=== PATIENT | female | born 1955 | race American Indian/Alaskan Native ===

== ENCOUNTER 2016-06-03 02:29 | Emergency (ER) | payer MEDICAID ==
[2016-06-03] MEDS ORDERED: methylPREDNISolone Sodium Succinate 125 MG/2 ML SDV IVPUSH ONE (02:32)
--- NOTE | 2016-06-03 02:37 | EDM.PDOC ---
ED HISTORY OF PRESENT ILLNESS - General Stated Complaint: AMB Time Seen by Provider: 06/03/16 02:32 Source of Information: Reports: Patient, EMS History Limitations: Reports: Respiratory distress - History of Present Illness INITIAL COMMENTS - FREE TEXT/NARRATIVE: EMS states Pt had recent leg surgery called for SOB arrived with O2 sat 80s with minimal response to neb, en route after second neb and CPAP sat improved to 90s. Pt states had surgery done few days ago in [place] where they had to clean out the infection from DM, had a pump there also, started SOB ~ 1am. no chest pain but leg pain. - Related Data Allergies/ADRs: Allergies Allergy/AdvReac Type Severity Reaction Status Date / Time capsaicin Allergy UNKNOWN Verified 03/15/13 11:43 codeine Allergy Nausea and Verified 03/15/13 11:43 Vomiting ibuprofen Allergy Itching Verified 03/15/13 11:43 pregabalin Allergy CONTACT Verified 03/15/13 11:43 DERMATITIS ALLERGY Home Meds: Home Meds Albuterol [Proventil HFA] 1 puff INH Q4HR PRN 10/08/13 [History] Aspirin [Ecotrin] 81 mg PO DAILY 10/08/13 [History] FLUoxetine [PROzac] 20 mg PO DAILY 10/08/13 [History] Formoterol/Mometasone [Dulera 100 MCG/5 MCG] 2 puff INH BID 10/08/13 [History] Omeprazole [priLOSEC OTC] 20 mg PO DAILY 10/08/13 [History] Simvastatin [Zocor] 20 mg PO QPM 10/08/13 [History] Tiotropium [Spiriva HandiHaler] 18 mcg INH DAILY 10/08/13 [History] Tolterodine Tartrate [Tolterodine Tartrate ER] 2 mg PO DAILY 10/08/13 [History] sitaGLIPtin Phos/Metformin HCl [Janumet 50-500 MG] 1 tab PO BIDAC 10/08/13 [ History] traZODone HCl [Trazodone HCl] 1 tab PO BEDTIME 10/08/13 [History] Gabapentin [Neurontin] 300 mg PO TID 03/17/16 [History] ARIPiprazole [Abilify] 10 mg PO BID 03/18/16 [History] Acetaminophen/HYDROcodone [Alma 325-10 MG] 1 tab PO Q4H PRN #0 tablet 03/22/16 [Rx] Insulin Detemir [Levemir] 25 unit SUBCUT BEDTIME pen 03/22/16 [Rx] Lisinopril [Prinivil] 20 mg PO DAILY tablet 03/22/16 [Rx] Nicotine [Habitrol] 14 mg TRDERM DAILY patch 03/22/16 [Rx] Piperacillin/Tazobactam [Zosyn] 3.375 gm IV Q6HR vial 03/22/16 [Rx] Sodium Chloride 0.9% [Normal Saline] 75 ml IV ASDIRECTED #0 bag 03/22/16 [Rx] Past Medical History HEENT History: Reports: Glaucoma, Impaired vision Other HEENT History: 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 Cardiovascular History: Reports: High cholesterol, Hypertension, [place], Stents Respiratory History: Reports: COPD, SOB Gastrointestinal History: Reports: Gastritis, GERD, Hemorrhoids Genitourinary History: Reports: None, Urinary incontinence [employer] History: Reports: 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, Other (see below) Other OB/BYN History: hysterectomy Musculoskeletal History: Reports: Arthritis, Back pain, chronic, Fibromyalgia Neurological History: Reports: None, Migraines Other Neuro History: hx of migraines; states she doesn't get them anymore Psychiatric History: Reports: None Endocrine/Metabolic History: Reports: Diabetes, type II Hematologic History: Reports: None Oncologic (Cancer) History: Reports: None Dermatologic History: Reports: Cellulitis, Other (see below) Other Dermatologic History: poor circulation in legs - Infectious Disease History Infectious Disease History: Reports: None - Past Surgical History Head Surgeries/Procedures: Reports: None HEENT Surgical History: Reports: Cataract surgery, Eye surgery, Laser surgery Other HEENT Surgeries/Procedures: states surgeries didn't work for her eyes Cardiovascular Surgical History: Reports: Coronary artery stent GI Surgical History: Reports: None Female Surgical History: Reports: Hysterectomy Endocrine Surgical History: Reports: None Neurological Surgical History: Reports: None Musculoskeletal Surgical History: Reports: None Social & Family History - Family History HEENT: Reports: None Cardiac: Reports: None Respiratory: Reports: None GI: Reports: None OBGYN: Reports: None Musculoskeletal: Reports: Fibromyalgia Other Musculoskeletal Family History: cousin Neurological: Reports: None Psychiatric: Reports: None Oncologic: Reports: Breast Other Oncologic Family History: Aunt had breast cancer - Tobacco Use Smoking Status *Q: Current Every Day Smoker Years of Tobacco use: 20 Packs/Tins Daily: 1 Used Tobacco, but Quit: No Second Hand Smoke Exposure: Yes - Caffeine Use Caffeine Use: Reports: Coffee Caffeine Use Comment: 4 cups in morning and 1 in the evening - Alcohol Use Days Per Week of Alcohol Use: 0 - Recreational Drug Use Recreational Drug Use: No ED ROS GENERAL - Review of Systems Review Of Systems: ROS reveals no pertinent complaints other than HPI. ED EXAM, GENERAL - Physical Exam Exam: See Below Exam Limited By: No limitations General Appearance: alert, WD/WN, mild distress, other (on CPAP) Ears: hearing grossly normal Head: atraumatic Neck: non-tender, full range of motion Respiratory/Chest: decreased breath sounds, rales, rhonchi, wheezing, accessory muscle use, other (bilat subcostal ) Cardiovascular: regular rate, rhythm GI/Abdominal: soft, non tender Extremities: pedal edema, other (left 2+, right 1+) Neurological: alert, normal cognition Psychiatric: flat affect Skin Exam: Warm, Dry Lymphatic: no adenopathy Course - Vital Signs Last Recorded V/S: Last Vital Signs Temp 36.7 C 06/03/16 06:30 Pulse 82 06/03/16 06:30 Resp 20 06/03/16 06:30 BP 132/54 L 06/03/16 06:30 Pulse Ox 97 06/03/16 06:30 - Orders/Labs/Meds Orders: Active Orders 24 hr Category Date Time Status EKG Documentation Completion [RC] STAT Care 06/03/16 02:31 Active Chest 1V Frontal [CR] Urgent Exams 06/03/16 02:31 Taken CULTURE BLOOD [BC] Stat Lab 06/03/16 02:45 Received Labs: Laboratory Tests 06/03/16 06/03/16 06/03/16 Range/Units 02:45 02:45 02:45 WBC 18.2 H (5.0-10.0) 10^3/uL RBC 3.30 L (4.2-5.4) 10^6/uL Hgb 10.2 L (12.0-16.0) g/dL Hct 30.8 L (37.0-47.0) % MCV 93.3 (80-100) fL MCH 30.9 (27.0-34.0) pg MCHC 33.1 (33.0-35.0) g/dL Plt Count 361 (150-450) 10^3/uL Neut % (Auto) 87.9 H (42.2-75.2) % Lymph % (Auto) 5.9 L (20.5-50.1) % [place] % (Auto) 4.3 (2-8) % Eos % (Auto) 1.4 (1.0-3.0) % Baso % (Auto) 0.5 (0.0-1.0) % Add Manual Diff Yes Neutrophils % (Manual) 90 % Lymphocytes % (Manual) 6 % Monocytes % (Manual) 1 % Eosinophils % (Manual) 3 % D-Dimer, Quantitative 997 H (0-400) ng/mL ABG pH (7.35-7.45) ABG pCO2 (35-45) mmHg ABG pO2 (70-100) mmHg ABG HCO3 (22-26) mmol/L ABG O2 Saturation (95-100) % ABG Base Excess ((-2)-(+3)) mmol/L Cory Test O2 Delivery Device Oxygen Flow Rate Sodium 134 L (135-145) mmol/L Potassium 4.4 (3.6-5.0) mmol/L Chloride 106 (101-111) mmol/L Carbon Dioxide 21.0 (21.0-31.0) mmol/L Anion Gap 11.4 BUN 52 H (7-18) mg/dL Creatinine 1.6 H (0.6-1.3) mg/dL Est Cr Clr Drug Dosing 31.32 mL/min Estimated GFR (MDRD) 33 BUN/Creatinine Ratio 32.50 Glucose 390 H (74-105) mg/dL Lactic Acid (0.5-2.2) mmol/L Calcium 7.9 L (8.4-10.2) mg/dl Total Bilirubin 0.3 (0.2-1.0) mg/dL AST 18 (10-42) IU/L ALT 11 (10-60) IU/L Alkaline Phosphatase 76 (42-121) IU/L Troponin I 0.04 H* (0.00-0.02) ng/ml B-Natriuretic Peptide 1460 H (0-100) pg/ml Total Protein 7.5 (6.7-8.2) g/dl Albumin 3.0 L (3.2-5.5) g/dl Globulin 4.5 Albumin/Globulin Ratio 0.67 06/03/16 06/03/16 06/03/16 Range/Units 02:45 03:27 06:10 WBC (5.0-10.0) 10^3/uL RBC (4.2-5.4) 10^6/uL Hgb (12.0-16.0) g/dL Hct (37.0-47.0) % MCV (80-100) fL MCH (27.0-34.0) pg MCHC (33.0-35.0) g/dL Plt Count (150-450) 10^3/uL Neut % (Auto) (42.2-75.2) % Lymph % (Auto) (20.5-50.1) % [place] % (Auto) (2-8) % Eos % (Auto) (1.0-3.0) % Baso % (Auto) (0.0-1.0) % Add Manual Diff Neutrophils % (Manual) % Lymphocytes % (Manual) % Monocytes % (Manual) % Eosinophils % (Manual) % D-Dimer, Quantitative (0-400) ng/mL ABG pH 7.37 (7.35-7.45) ABG pCO2 38 (35-45) mmHg ABG pO2 81 (70-100) mmHg ABG HCO3 21.8 L (22-26) mmol/L ABG O2 Saturation 96 (95-100) % ABG Base Excess -4 L ((-2)-(+3)) mmol/L Cory Test Positive O2 Delivery Device Cpap Oxygen Flow Rate 0 Sodium (135-145) mmol/L Potassium (3.6-5.0) mmol/L Chloride (101-111) mmol/L Carbon Dioxide (21.0-31.0) mmol/L Anion Gap BUN (7-18) mg/dL Creatinine (0.6-1.3) mg/dL Est Cr Clr Drug Dosing mL/min Estimated GFR (MDRD) BUN/Creatinine Ratio Glucose (74-105) mg/dL Lactic Acid 0.8 (0.5-2.2) mmol/L Calcium (8.4-10.2) mg/dl Total Bilirubin (0.2-1.0) mg/dL AST (10-42) IU/L ALT (10-60) IU/L Alkaline Phosphatase (42-121) IU/L Troponin I 0.57 H* (0.00-0.02) ng/ml B-Natriuretic Peptide 2200 H (0-100) pg/ml Total Protein (6.7-8.2) g/dl Albumin (3.2-5.5) g/dl Globulin Albumin/Globulin Ratio 06/03/ Range/Units 06:10 WBC 14.0 H (5.0-10.0) 10^3/uL RBC 2.96 L (4.2-5.4) 10^6/uL Hgb 9.1 L (12.0-16.0) g/dL Hct 27.9 L (37.0-47.0) % MCV 94.3 (80-100) fL MCH 30.7 (27.0-34.0) pg MCHC 32.6 L (33.0-35.0) g/dL Plt Count 332 (150-450) 10^3/uL Neut % (Auto) 95.5 H (42.2-75.2) % Lymph % (Auto) 3.5 L (20.5-50.1) % [place] % (Auto) 0.7 L (2-8) % Eos % (Auto) 0.1 L (1.0-3.0) % Baso % (Auto) 0.2 (0.0-1.0) % Add Manual Diff Neutrophils % (Manual) % Lymphocytes % (Manual) % Monocytes % (Manual) % Eosinophils % (Manual) % D-Dimer, Quantitative (0-400) ng/mL ABG pH (7.35-7.45) ABG pCO2 (35-45) mmHg ABG pO2 (70-100) mmHg ABG HCO3 (22-26) mmol/L ABG O2 Saturation (95-100) % ABG Base Excess ((-2)-(+3)) mmol/L Cory Test O2 Delivery Device Oxygen Flow Rate Sodium (135-145) mmol/L Potassium (3.6-5.0) mmol/L Chloride (101-111) mmol/L Carbon Dioxide (21.0-31.0) mmol/L Anion Gap BUN (7-18) mg/dL Creatinine (0.6-1.3) mg/dL Est Cr Clr Drug Dosing mL/min Estimated GFR (MDRD) BUN/Creatinine Ratio Glucose (74-105) mg/dL Lactic Acid (0.5-2.2) mmol/L Calcium (8.4-10.2) mg/dl Total Bilirubin (0.2-1.0) mg/dL AST (10-42) IU/L ALT (10-60) IU/L Alkaline Phosphatase (42-121) IU/L Troponin I (0.00-0.02) ng/ml B-Natriuretic Peptide (0-100) pg/ml Total Protein (6.7-8.2) g/dl Albumin (3.2-5.5) g/dl Globulin Albumin/Globulin Ratio Meds: Medications Discontinued Medications Generic Name Dose Route Start Last Admin Trade Name Freq PRN Reason Stop Dose Admin Furosemide 20 mg 06/03/16 02:59 06/03/16 03:03 Lasix IVPUSH 06/03/16 03:00 20 mg ONETIME ONE Administration Methylprednisolone Sodium Succinate 125 mg 06/03/16 02:32 06/03/16 02:46 Solu-Medrol IVPUSH 06/03/16 02:33 125 mg ONETIME ONE Administration - Re-Assessments/Exams Free Text/Narrative Re-Assessment/Exam: 06/03/16 03:11 s/p IV solumedrol + lasix = minimal improvement. 06/03/16 07:03 repeat troponin & bnp more elvated. case discussed with Dr Mccarty who kindly accepted Pt. Departure - Departure Time of Disposition: 07:04 Disposition: DC/Tfer to Acute Hospital 02 Condition: fair Clinical Impression: COPD exacerbation Acute exacerbation of CHF (congestive heart failure) Qualifiers: Congestive heart failure type: unspecified congestive heart failure type Qualified Code(s): I50.9 - Heart failure, unspecified Forms: Interfacility Transfer EMTALA - My Orders Last 24 Hours: My Active Orders 06/03/16 02:31 EKG Documentation Completion [RC] STAT Chest 1V Frontal [CR] Urgent 06/03/16 02:45 CULTURE BLOOD [BC] Stat - Assessment/Plan Last 24 Hours: My Active Orders 06/03/16 02:31 EKG Documentation Completion [RC] STAT Chest 1V Frontal [CR] Urgent 06/03/16 02:45 CULTURE BLOOD [BC] Stat
[2016-06-03] MEDS ORDERED: Furosemide 20 MG/2 ML VIAL IVPUSH ONE (02:59)
[2016-06-03 03:35] LABS: O2 DELIVERY DEVICE CPAP; O2 FLOW RATE 0
[2016-06-03 04:28] LABS: ALLEN TEST POSITIVE; BASE EXCESS ARTERIAL -4 mmol/L ((-2)-(+3)); BICARBONATE,ARTERIAL 21.8 mmol/L (22-26); O2 SATURATION ARTERIAL 96 % (95-100); PCO2 ARTERIAL 38 mmHg (35-45); PO2 ARTERIAL 81 mmHg (70-100)
[2016-06-03 07:18] VITALS: BP 132/56
--- NOTE | 2016-06-07 13:16 | EKG ---
06/03/2016 - ROSEMARY TALAMANTES - EKG per my reading shows sinus rhythm at a rate of [address] [facility] /[id number]
== END 2016-06-03 08:03 ==
LOC: DL.ED 02:29
DX: I11.0 Hypertensive heart disease with heart failure (principal); I50.9 Heart failure, unspecified; J44.1 Chronic obstructive pulmonary disease with (acute) exacerbation; E78.00 Pure hypercholesterolemia, unspecified; I25.2 Old myocardial infarction; K21.9 Gastro-esophageal reflux disease without esophagitis; M19.90 Unspecified osteoarthritis, unspecified site; E11.9 Type 2 diabetes mellitus without complications; F17.210 Nicotine dependence, cigarettes, uncomplicated; Z88.5 Allergy status to narcotic agent; Z88.6 Allergy status to analgesic agent; Z88.8 Allergy status to other drugs, medicaments and biological substances; Z79.82 Long term (current) use of aspirin; Z79.4 Long term (current) use of insulin; Z98.49 Cataract extraction status, unspecified eye; Z90.710 Acquired absence of both cervix and uterus
CPT/HCPCS: 36415; 36600; 71010; 80053; 82803; 83605; 83880; 84484; 85025; 85379; 87040; 93005; 94660; 99285; J1940; J2930

== ENCOUNTER 2016-06-07 23:55 | Emergency (ER) | payer MEDICAID ==
[2016-06-07] MEDS ORDERED: Furosemide 40 MG/4 ML VIAL IVPUSH ONE (23:56)
[2016-06-07] MEDS ORDERED: Albuterol 0.083% 2.5 MG/3 ML Neb Soln NEB ONE (23:57)
[2016-06-08] MEDS ORDERED: Aspirin 81 MG Tab.Chew PO ONE (00:06)
[2016-06-08 00:15] LABS: O2 DELIVERY DEVICE VENTILATOR
[2016-06-08] MEDS ORDERED: Nitroglycerin/D5W 25 MG/250 ML BOTTLE IV SCH (00:15)
[2016-06-08 00:19] LABS: BASE EXCESS ARTERIAL -7 mmol/L ((-2)-(+3)); BICARBONATE,ARTERIAL 17.1 mmol/L (22-26); O2 SATURATION ARTERIAL 85 % (95-100); PCO2 ARTERIAL 30 mmHg (35-45); PO2 ARTERIAL 55 mmHg (70-100)
[2016-06-08] MEDS ORDERED: Morphine 2 MG/ML Syringe IVPUSH ONE (00:26)
[2016-06-08] MEDS ORDERED: Heparin Sodium 5,000 Units/ML Vial IVPUSH ONE (00:38)
[2016-06-08 00:40] VITALS: BP 164/78
[2016-06-08] MEDS ORDERED: Heparin Sodium/D5W 25,000 UNITS/500 ML BAG IV SCH (00:45)
--- NOTE | 2016-06-08 00:48 | EDM.PDOC ---
ED HISTORY OF PRESENT ILLNESS - General Chief Complaint: Chest Pain Stated Complaint: AMB Time Seen by Provider: 06/08/16 00:00 Source of Information: Reports: Patient, EMS History Limitations: Reports: Respiratory distress - History of Present Illness INITIAL COMMENTS - FREE TEXT/NARRATIVE: C/o SOB and chest pain, recent discharge from [facility] today. Tx from ED on 14 with similar sx with elevated troponin, Hx COPD, Diabetes, cardiac stents. Admits to continue to smoke, Nicotine patch present . EMS notes patient had admitted to them also smoking cannabis tonight. SATS FOR ems 94% DECREASE ON ed ADMIT TO LOW 80"S. Chest pain midsternal without radiation. Intermittent lasting few seconds. Resolved enroute with O2 Timing/Duration: Reports: Minutes:, Intermittent Severity: moderate Location, General: Reports: chest. Denies: radiates to: Associated Symptoms (General): Reports: chest pain, shortness of breath. Denies : cough - Related Data Allergies/ADRs: Allergies Allergy/AdvReac Type Severity Reaction Status Date / Time capsaicin Allergy UNKNOWN Verified 06/08/16 00:07 codeine Allergy Nausea and Verified 06/08/16 00:07 Vomiting ibuprofen Allergy Itching Verified 06/08/16 00:07 pregabalin Allergy CONTACT Verified 06/08/16 00:07 DERMATITIS ALLERGY Home Meds: Home Meds Albuterol [Proventil HFA] 1 puff INH Q4HR PRN 10/08/13 [History] Aspirin [Ecotrin] 81 mg PO DAILY 10/08/13 [History] FLUoxetine [PROzac] 20 mg PO DAILY 10/08/13 [History] Formoterol/Mometasone [Dulera 100 MCG/5 MCG] 2 puff INH BID 10/08/13 [History] Omeprazole [priLOSEC OTC] 20 mg PO DAILY 10/08/13 [History] Simvastatin [Zocor] 20 mg PO QPM 10/08/13 [History] Tiotropium [Spiriva HandiHaler] 18 mcg INH DAILY 10/08/13 [History] Tolterodine Tartrate [Tolterodine Tartrate ER] 2 mg PO DAILY 10/08/13 [History] sitaGLIPtin Phos/Metformin HCl [Janumet 50-500 MG] 1 tab PO BIDAC 10/08/13 [ History] traZODone HCl [Trazodone HCl] 1 tab PO BEDTIME 10/08/13 [History] Gabapentin [Neurontin] 300 mg PO TID 03/17/16 [History] ARIPiprazole [Abilify] 10 mg PO BID 03/18/16 [History] Acetaminophen/HYDROcodone [[place] 325-10 MG] 1 tab PO Q4H PRN #0 tablet 03/22/16 [Rx] Insulin Detemir [Levemir] 25 unit SUBCUT BEDTIME pen 03/22/16 [Rx] Lisinopril [Prinivil] 20 mg PO DAILY tablet 03/22/16 [Rx] Nicotine [Habitrol] 14 mg TRDERM DAILY patch 03/22/16 [Rx] Piperacillin/Tazobactam [Zosyn] 3.375 gm IV Q6HR vial 03/22/16 [Rx] Sodium Chloride 0.9% [Normal Saline] 75 ml IV ASDIRECTED #0 bag 03/22/16 [Rx] Past Medical History HEENT History: Reports: Glaucoma, Impaired vision Other HEENT History: 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 Cardiovascular History: Reports: High cholesterol, Hypertension, CO, Stents Respiratory History: Reports: COPD, SOB Gastrointestinal History: Reports: Gastritis, GERD, Hemorrhoids Genitourinary History: Reports: None, Urinary incontinence [employer] History: Reports: 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, Other (see below) Other OB/BYN History: hysterectomy Musculoskeletal History: Reports: Arthritis, Back pain, chronic, Fibromyalgia Neurological History: Reports: None, Migraines Other Neuro History: hx of migraines; states she doesn't get them anymore Psychiatric History: Reports: None Endocrine/Metabolic History: Reports: Diabetes, type II Hematologic History: Reports: None Oncologic (Cancer) History: Reports: None Dermatologic History: Reports: Cellulitis, Other (see below) Other Dermatologic History: poor circulation in legs - Infectious Disease History Infectious Disease History: Reports: None - Past Surgical History Head Surgeries/Procedures: Reports: None HEENT Surgical History: Reports: Cataract surgery, Eye surgery, Laser surgery Other HEENT Surgeries/Procedures: states surgeries didn't work for her eyes Cardiovascular Surgical History: Reports: Coronary artery stent GI Surgical History: Reports: None Female Surgical History: Reports: Hysterectomy Endocrine Surgical History: Reports: None Neurological Surgical History: Reports: None Musculoskeletal Surgical History: Reports: None Social & Family History - Family History HEENT: Reports: None Cardiac: Reports: None Respiratory: Reports: None GI: Reports: None OBGYN: Reports: None Musculoskeletal: Reports: Fibromyalgia Other Musculoskeletal Family History: cousin Neurological: Reports: None Psychiatric: Reports: None Oncologic: Reports: Breast Other Oncologic Family History: Aunt had breast cancer - Tobacco Use Smoking Status *Q: Heavy Tobacco Smoker Years of Tobacco use: 40 Packs/Tins Daily: 1 Used Tobacco, but Quit: No Second Hand Smoke Exposure: Yes - Caffeine Use Caffeine Use: Reports: Coffee Caffeine Use Comment: 4 cups in morning and 1 in the evening - Alcohol Use Days Per Week of Alcohol Use: 0 - Recreational Drug Use Recreational Drug Use: Yes Recreational Drug Type: Reports: Marijuana/Hashish Recreational Drug Use Frequency: Socially ED ROS GENERAL - Review of Systems Review Of Systems: See Below HEENT: Reports: No symptoms Respiratory: Reports: Shortness of Breath. Denies: Wheezing, Cough Cardiovascular: Reports: Chest pain, Dyspnea on exertion, Orthopnea Endocrine: Reports: high glucose GI/Abdominal: Reports: No symptoms Musculoskeletal: Reports: no symptoms Skin: Reports: wound (left outer ankle) Neurological: Reports: No Symptoms Psychiatric: Reports: No symptoms ED EXAM, GENERAL - Physical Exam Exam: See Below Exam Limited By: No limitations General Appearance: alert, moderate distress Eye Exam: bilateral eye: EOMI Ears: normal external exam Nose: normal inspection Throat/Mouth: Normal inspection Head: atraumatic, normocephalic Neck: normal inspection Cardiovascular: regular rate, rhythm, no edema, JVD, tachycardia GI/Abdominal: normal bowel sounds, soft Rectal (Female) Exam: Normal Exam Extremities: other (lower extremity edema left with wound to left outer ankle dressing intact serosang drainage to guaze). No: pedal edema (right), increased warmth Neurological: alert, oriented, normal cognition Psychiatric: anxious Skin Exam: Warm, Dry, Pallor Course - Vital Signs Last Recorded V/S: Last Vital Signs Temp 96.8 F 06/08/16 00:39 Pulse 116 H 06/08/16 00:39 Resp 28 H 06/08/16 00:39 BP 164/78 H 06/08/16 00:39 Pulse Ox 100 06/08/16 00:39 - Orders/Labs/Meds Orders: Active Orders 24 hr Category Date Time Status Cardiac Monitoring [RC] . DIRECTED Care 06/08/16 00:39 Active EKG 12 Lead [EKG Documentation Completion] [RC] URGENT Care 06/07/16 23:51 Active RT Aerosol Therapy [RC] ASDIRECTED Care 06/07/16 23:57 Active Labs: Laboratory Tests 06/07/16 06/07/16 06/07/16 Range/Units 00:05 00:05 00:05 WBC 20.4 H (5.0-10.0) 10^3/uL RBC 2.94 L (4.2-5.4) 10^6/uL Hgb 9.1 L (12.0-16.0) g/dL Hct 27.1 L (37.0-47.0) % MCV 92.2 (80-100) fL MCH 31.0 (27.0-34.0) pg MCHC 33.6 (33.0-35.0) g/dL Plt Count 454 H (150-450) 10^3/uL Neut % (Auto) 85.4 H (42.2-75.2) % Lymph % (Auto) 8.9 L (20.5-50.1) % [place] % (Auto) 5.3 (2-8) % Eos % (Auto) 0.2 L (1.0-3.0) % Baso % (Auto) 0.2 (0.0-1.0) % PT (9.0-12.0) SEC INR (0.9-1.2) APTT (22.0-34.0) SEC D-Dimer, Quantitative (0-400) ng/mL ABG pH (7.35-7.45) ABG pCO2 (35-45) mmHg ABG pO2 (70-100) mmHg ABG HCO3 (22-26) mmol/L ABG O2 Saturation (95-100) % ABG Base Excess ((-2)-(+3)) mmol/L O2 Delivery Device Sodium 127 L (135-145) mmol/L Potassium 3.8 (3.6-5.0) mmol/L Chloride 98 L (101-111) mmol/L Carbon Dioxide 18.0 L (21.0-31.0) mmol/L Anion Gap 14.8 BUN 49 H (7-18) mg/dL Creatinine 1.6 H (0.6-1.3) mg/dL Est Cr Clr Drug Dosing 31.32 mL/min Estimated GFR (MDRD) 33 BUN/Creatinine Ratio 30.62 Glucose 369 H (74-105) mg/dL Lactic Acid (0.5-2.2) mmol/L Calcium 8.4 (8.4-10.2) mg/dl Total Bilirubin 0.4 (0.2-1.0) mg/dL AST 27 (10-42) IU/L ALT 14 (10-60) IU/L Alkaline Phosphatase 68 (42-121) IU/L CK-MB (CK-2) 8.50 H (0.4-4.7) ng/mL Troponin I 1.08 H* (0.00-0.02) ng/ml B-Natriuretic Peptide 1920 H (0-100) pg/ml Total Protein 7.2 (6.7-8.2) g/dl Albumin 2.8 L (3.2-5.5) g/dl Globulin 4.4 Albumin/Globulin Ratio 0.64 Amylase 53 (28-100) U/L Lipase 20 L (22-51) U/L Urine Color (YELLOW) Urine Appearance (CLEAR) Urine pH (5.0-9.0) Ur Specific [place] (1.005-1.030) Urine Protein (NEGATIVE) Urine Glucose (UA) (NEGATIVE) Urine Ketones (NEGATIVE) Urine Occult Blood (NEGATIVE) Urine Nitrite (NEGATIVE) Urine Bilirubin (NEGATIVE) Urine Urobilinogen (0.2-1.0) mg/dL Ur Leukocyte Esterase (NEGATIVE) Urine RBC /HPF Urine WBC (0-5/HPF) /HPF Ur Epithelial Cells /HPF Amorphous Sediment (0/HPF) /HPF Urine Bacteria (0-FEW/HPF) /HPF Urine Opiates Screen (NEGATIVE) Ur Oxycodone Screen (NEGATIVE) Urine Methadone Screen (NEGATIVE) Ur Barbiturates Screen (NEGATIVE) U Tricyclic Antidepress (NEGATIVE) Ur Phencyclidine Scrn (NEGATIVE) Ur Amphetamine Screen (NEGATIVE) U Methamphetamines Scrn (NEGATIVE) Urine MDMA Screen (NEGATIVE) U Benzodiazepines Scrn (NEGATIVE) Urine Cocaine Screen (NEGATIVE) U Marijuana (THC) Screen (NEGATIVE) 06/07/16 06/07/16 06/07/16 Range/Units 00:05 00:05 00:05 WBC (5.0-10.0) 10^3/uL RBC (4.2-5.4) 10^6/uL Hgb (12.0-16.0) g/dL Hct (37.0-47.0) % MCV (80-100) fL MCH (27.0-34.0) pg MCHC (33.0-35.0) g/dL Plt Count (150-450) 10^3/uL Neut % (Auto) (42.2-75.2) % Lymph % (Auto) (20.5-50.1) % [place] % (Auto) (2-8) % Eos % (Auto) (1.0-3.0) % Baso % (Auto) (0.0-1.0) % PT 9.6 (9.0-12.0) SEC INR 1.0 (0.9-1.2) APTT (22.0-34.0) SEC D-Dimer, Quantitative 1040 H (0-400) ng/mL ABG pH (7.35-7.45) ABG pCO2 (35-45) mmHg ABG pO2 (70-100) mmHg ABG HCO3 (22-26) mmol/L ABG O2 Saturation (95-100) % ABG Base Excess ((-2)-(+3)) mmol/L O2 Delivery Device Sodium (135-145) mmol/L Potassium (3.6-5.0) mmol/L Chloride (101-111) mmol/L Carbon Dioxide (21.0-31.0) mmol/L Anion Gap BUN (7-18) mg/dL Creatinine (0.6-1.3) mg/dL Est Cr Clr Drug Dosing mL/min Estimated GFR (MDRD) BUN/Creatinine Ratio Glucose (74-105) mg/dL Lactic Acid 3.5 H (0.5-2.2) mmol/L Calcium (8.4-10.2) mg/dl Total Bilirubin (0.2-1.0) mg/dL AST (10-42) IU/L ALT (10-60) IU/L Alkaline Phosphatase (42-121) IU/L CK-MB (CK-2) (0.4-4.7) ng/mL Troponin I (0.00-0.02) ng/ml B-Natriuretic Peptide (0-100) pg/ml Total Protein (6.7-8.2) g/dl Albumin (3.2-5.5) g/dl Globulin Albumin/Globulin Ratio Amylase (28-100) U/L Lipase (22-51) U/L Urine Color (YELLOW) Urine Appearance (CLEAR) Urine pH (5.0-9.0) Ur Specific [place] (1.005-1.030) Urine Protein (NEGATIVE) Urine Glucose (UA) (NEGATIVE) Urine Ketones (NEGATIVE) Urine Occult Blood (NEGATIVE) Urine Nitrite (NEGATIVE) Urine Bilirubin (NEGATIVE) Urine Urobilinogen (0.2-1.0) mg/dL Ur Leukocyte Esterase (NEGATIVE) Urine RBC /HPF Urine WBC (0-5/HPF) /HPF Ur Epithelial Cells /HPF Amorphous Sediment (0/HPF) /HPF Urine Bacteria (0-FEW/HPF) /HPF Urine Opiates Screen (NEGATIVE) Ur Oxycodone Screen (NEGATIVE) Urine Methadone Screen (NEGATIVE) Ur Barbiturates Screen (NEGATIVE) U Tricyclic Antidepress (NEGATIVE) Ur Phencyclidine Scrn (NEGATIVE) Ur Amphetamine Screen (NEGATIVE) U Methamphetamines Scrn (NEGATIVE) Urine MDMA Screen (NEGATIVE) U Benzodiazepines Scrn (NEGATIVE) Urine Cocaine Screen (NEGATIVE) U Marijuana (THC) Screen (NEGATIVE) 06/07/16 06/08/16 06/08/16 Range/Units 00:10 00:05 01:00 WBC (5.0-10.0) 10^3/uL RBC (4.2-5.4) 10^6/uL Hgb (12.0-16.0) g/dL Hct (37.0-47.0) % MCV (80-100) fL MCH (27.0-34.0) pg MCHC (33.0-35.0) g/dL Plt Count (150-450) 10^3/uL Neut % (Auto) (42.2-75.2) % Lymph % (Auto) (20.5-50.1) % [place] % (Auto) (2-8) % Eos % (Auto) (1.0-3.0) % Baso % (Auto) (0.0-1.0) % PT (9.0-12.0) SEC INR (0.9-1.2) APTT 25.9 (22.0-34.0) SEC D-Dimer, Quantitative (0-400) ng/mL ABG pH 7.38 (7.35-7.45) ABG pCO2 30 L (35-45) mmHg ABG pO2 55 L (70-100) mmHg ABG HCO3 17.1 L (22-26) mmol/L ABG O2 Saturation 85 L (95-100) % ABG Base Excess -7 L ((-2)-(+3)) mmol/L O2 Delivery Device Ventilator Sodium (135-145) mmol/L Potassium (3.6-5.0) mmol/L Chloride (101-111) mmol/L Carbon Dioxide (21.0-31.0) mmol/L Anion Gap BUN (7-18) mg/dL Creatinine (0.6-1.3) mg/dL Est Cr Clr Drug Dosing mL/min Estimated GFR (MDRD) BUN/Creatinine Ratio Glucose (74-105) mg/dL Lactic Acid (0.5-2.2) mmol/L Calcium (8.4-10.2) mg/dl Total Bilirubin (0.2-1.0) mg/dL AST (10-42) IU/L ALT (10-60) IU/L Alkaline Phosphatase (42-121) IU/L CK-MB (CK-2) (0.4-4.7) ng/mL Troponin I (0.00-0.02) ng/ml B-Natriuretic Peptide (0-100) pg/ml Total Protein (6.7-8.2) g/dl Albumin (3.2-5.5) g/dl Globulin Albumin/Globulin Ratio Amylase (28-100) U/L Lipase (22-51) U/L Urine Color Yellow (YELLOW) Urine Appearance Slightly cloudy (CLEAR) Urine pH 6.0 (5.0-9.0) Ur Specific [place] 1.020 (1.005-1.030) Urine Protein >=300 H (NEGATIVE) Urine Glucose (UA) 500 H (NEGATIVE) Urine Ketones Negative (NEGATIVE) Urine Occult Blood Moderate H (NEGATIVE) Urine Nitrite Negative (NEGATIVE) Urine Bilirubin Negative (NEGATIVE) Urine Urobilinogen 0.2 (0.2-1.0) mg/dL Ur Leukocyte Esterase Negative (NEGATIVE) Urine RBC 20-30 H /HPF Urine WBC 0-5 (0-5/HPF) /HPF Ur Epithelial Cells Few /HPF Amorphous Sediment Moderate H (0/HPF) /HPF Urine Bacteria Few (0-FEW/HPF) /HPF Urine Opiates Screen (NEGATIVE) Ur Oxycodone Screen (NEGATIVE) Urine Methadone Screen (NEGATIVE) Ur Barbiturates Screen (NEGATIVE) U Tricyclic Antidepress (NEGATIVE) Ur Phencyclidine Scrn (NEGATIVE) Ur Amphetamine Screen (NEGATIVE) U Methamphetamines Scrn (NEGATIVE) Urine MDMA Screen (NEGATIVE) U Benzodiazepines Scrn (NEGATIVE) Urine Cocaine Screen (NEGATIVE) U Marijuana (THC) Screen (NEGATIVE) 06/08/16 Range/Units 01:00 WBC (5.0-10.0) 10^3/uL RBC (4.2-5.4) 10^6/uL Hgb (12.0-16.0) g/dL Hct (37.0-47.0) % MCV (80-100) fL MCH (27.0-34.0) pg MCHC (33.0-35.0) g/dL Plt Count (150-450) 10^3/uL Neut % (Auto) (42.2-75.2) % Lymph % (Auto) (20.5-50.1) % [place] % (Auto) (2-8) % Eos % (Auto) (1.0-3.0) % Baso % (Auto) (0.0-1.0) % PT (9.0-12.0) SEC INR (0.9-1.2) APTT (22.0-34.0) SEC D-Dimer, Quantitative (0-400) ng/mL ABG pH (7.35-7.45) ABG pCO2 (35-45) mmHg ABG pO2 (70-100) mmHg ABG HCO3 (22-26) mmol/L ABG O2 Saturation (95-100) % ABG Base Excess ((-2)-(+3)) mmol/L O2 Delivery Device Sodium (135-145) mmol/L Potassium (3.6-5.0) mmol/L Chloride (101-111) mmol/L Carbon Dioxide (21.0-31.0) mmol/L Anion Gap BUN (7-18) mg/dL Creatinine (0.6-1.3) mg/dL Est Cr Clr Drug Dosing mL/min Estimated GFR (MDRD) BUN/Creatinine Ratio Glucose (74-105) mg/dL Lactic Acid (0.5-2.2) mmol/L Calcium (8.4-10.2) mg/dl Total Bilirubin (0.2-1.0) mg/dL AST (10-42) IU/L ALT (10-60) IU/L Alkaline Phosphatase (42-121) IU/L CK-MB (CK-2) (0.4-4.7) ng/mL Troponin I (0.00-0.02) ng/ml B-Natriuretic Peptide (0-100) pg/ml Total Protein (6.7-8.2) g/dl Albumin (3.2-5.5) g/dl Globulin Albumin/Globulin Ratio Amylase (28-100) U/L Lipase (22-51) U/L Urine Color (YELLOW) Urine Appearance (CLEAR) Urine pH (5.0-9.0) Ur Specific [place] (1.005-1.030) Urine Protein (NEGATIVE) Urine Glucose (UA) (NEGATIVE) Urine Ketones (NEGATIVE) Urine Occult Blood (NEGATIVE) Urine Nitrite (NEGATIVE) Urine Bilirubin (NEGATIVE) Urine Urobilinogen (0.2-1.0) mg/dL Ur Leukocyte Esterase (NEGATIVE) Urine RBC /HPF Urine WBC (0-5/HPF) /HPF Ur Epithelial Cells /HPF Amorphous Sediment (0/HPF) /HPF Urine Bacteria (0-FEW/HPF) /HPF Urine Opiates Screen Negative (NEGATIVE) Ur Oxycodone Screen Positive H (NEGATIVE) Urine Methadone Screen Negative (NEGATIVE) Ur Barbiturates Screen Negative (NEGATIVE) U Tricyclic Antidepress Negative (NEGATIVE) Ur Phencyclidine Scrn Negative (NEGATIVE) Ur Amphetamine Screen Negative (NEGATIVE) U Methamphetamines Scrn Negative (NEGATIVE) Urine MDMA Screen Negative (NEGATIVE) U Benzodiazepines Scrn Negative (NEGATIVE) Urine Cocaine Screen Negative (NEGATIVE) U Marijuana (THC) Screen Positive H (NEGATIVE) Meds: Medications Discontinued Medications Generic Name Dose Route Start Last Admin Trade Name Freq PRN Reason Stop Dose Admin Albuterol 2.5 mg 06/07/16 23:57 06/08/16 00:04 Proventil Neb Soln NEB 06/07/16 23:58 2.5 mg ONETIME ONE Administration Aspirin 324 mg 06/08/16 00:06 06/08/16 00:12 Aspirin PO 06/08/16 00:07 324 mg ONETIME ONE Administration Furosemide 40 mg 06/07/16 23:56 06/08/16 00:05 Lasix IVPUSH 06/07/16 23:57 40 mg NOW ONE Administration Heparin Sodium (Porcine) 4,000 units 06/08/16 00:38 06/08/16 00:47 Heparin Sodium IVPUSH 06/08/16 00:39 4,000 units .BOLUS ONE Administration Nitroglycerin/Dextrose 25 mg in 250 mls @ 6 mls/hr 06/08/16 00:15 06/08/16 00 :17 Nitroglycerin 25 Mg/D5w 250 Ml IV 10 mcg/min TITRATE ELFEGO 6 mls/hr Protocol Administration 10 MCG/MIN Heparin Sodium/Dextrose 25,000 units in 500 mls @ 15.35 mls/hr 06/08/16 00:45 06/08/16 00:48 Heparin 25,000 Units In D5w 500 Ml IV 12 units/kg/hr TITRATE ELFEGO 15.35 mls/hr Protocol Administration 12 UNITS/KG/HR Morphine Sulfate 2 mg 06/08/16 00:26 06/08/16 00:31 Morphine IVPUSH 06/08/16 00:27 2 mg ONETIME ONE Administration - Radiology Interpretation Free Text/Narrative:: CXR Pulmonary Edema - Re-Assessments/Exams Free Text/Narrative Re-Assessment/Exam: 06/08/16 00:55 Sats improved with non-rebreather. Lasix IV, and Morphine given. IV nitro initiated at 5mcg. intermittent c/o of midsternal chest pain. [place] placed. TC consult Dr. Liam Escalante accepting of patient. Tx via [facility]. Stable guarded condition Pumonary edema, chest pain with elevated troponin BNP and WBC. . Departure - Departure Time of Disposition: 01:45 Disposition: DC/Tfer to Acute Hospital 02 Reason for Transfer *Q: Other Condition: undetermined Clinical Impression: Acute coronary syndrome, Diabetes mellitus, Tobacco abuse Leukocytosis Qualifiers: Leukocytosis type: bandemia Qualified Code(s): D72.825 - Bandemia Forms: ED Department Discharge - My Orders Last 24 Hours: My Active Orders 06/07/16 23:51 EKG 12 Lead [EKG Documentation Completion] [RC] URGENT 06/07/16 23:57 RT Aerosol Therapy [RC] ASDIRECTED 06/08/16 00:39 Cardiac Monitoring [RC] . DIRECTED - Assessment/Plan Last 24 Hours: My Active Orders 06/07/16 23:51 EKG 12 Lead [EKG Documentation Completion] [RC] URGENT 06/07/16 23:57 RT Aerosol Therapy [RC] ASDIRECTED 06/08/16 00:39 Cardiac Monitoring [RC] . DIRECTED
--- NOTE | 2016-06-08 16:12 | EKG ---
06/07/2016 - ROSEMARY TALAMANTES - TIME: 2358 hours. EKG per my reading shows sinus tachycardia at the rate of 130s with left bundle branch block. [facility] /[id number]
== END 2016-06-08 01:06 ==
LOC: DL.ED 23:55
DX: I24.9 Acute ischemic heart disease, unspecified (principal); E11.9 Type 2 diabetes mellitus without complications; D72.825 Bandemia; E78.00 Pure hypercholesterolemia, unspecified; I10 Essential (primary) hypertension; I25.2 Old myocardial infarction; J44.9 Chronic obstructive pulmonary disease, unspecified; K21.9 Gastro-esophageal reflux disease without esophagitis; M19.90 Unspecified osteoarthritis, unspecified site; F17.210 Nicotine dependence, cigarettes, uncomplicated; Z90.710 Acquired absence of both cervix and uterus; Z79.899 Other long term (current) drug therapy; Z98.49 Cataract extraction status, unspecified eye; Z79.82 Long term (current) use of aspirin; Z79.4 Long term (current) use of insulin; Z88.5 Allergy status to narcotic agent; Z88.6 Allergy status to analgesic agent; Z88.8 Allergy status to other drugs, medicaments and biological substances
CPT/HCPCS: 36415; 36600; 71010; 80053; 80305; 81001; 82150; 82553; 82803; 83605; 83690; 83880; 84484; 85025; 85379; 85610; 85730; 93005; 96365; 96368; 96375; 99285; A9270; J1644; J1940; J2270; J7620

== ENCOUNTER 2016-07-08 10:25 | Emergency (ER) | payer MEDICAID ==
[2016-07-08 10:30] VITALS: BP 165/80
[2016-07-08] MEDS ORDERED: Sodium Chloride 0.9% 10 ML Syringe FLUSH PRN (10:45)
--- NOTE | 2016-07-08 10:55 | EDM.PDOC ---
{null, ED HPI GENERAL MEDICAL PROBLEM - General Chief Complaint: Respiratory Problem Stated Complaint: BY AMBULANCE Time Seen by Provider: 07/08/16 10:50 Source of Information: Reports: Patient, EMS, RN, Other (primary care provider Dr. Delgado.) History Limitations: Reports: No Limitations - History of Present Illness INITIAL COMMENTS - FREE TEXT/NARRATIVE: patient comes emergency Department today by ambulance with complaints of worsening shortness of breath. Patient lives at home alone and is followed by home health care as well as Dr. Delgado. Over the past couple of weeks she has become increasingly more short of breath. To the point this morning when she was walking out of the car she was unable to do her typical physical today. She relates that her oxygen saturation dropped into the 90s at home. She does have a history of COPD but most recently renal failure and had a short stent of temporary dialysis about one month ago with improvement of renal function and removal of the temporary dialysis catheter. According to Dr. Delgado and the nurse the patient has not been compliant with medication therapy at home nor is she been following up with her primary care provider as scheduled. They're currently working on group home home facility placement. Patient arrives with complaints of shortness of breath. Denies any fever or chills. She does complain of a chronic dry hacking cough that has not gotten worse nor is it productive. She states that she gets very short of breath when she lays flat and that she is very swollen full of fluid. She denies any chest pain. She does have shortness of breath at rest. She denies abdominal pain nausea or vomiting or flank pain. She relates that she makes little to no urine on a regular basis at home. She does have a chronic diabetic ulcer on the left lower extremity for which she takes care of at home. She chronically has quite a bit of swelling in the left lower extremity up to her knee but this is much worse than it typically has been. She does do dressing changes at home. - Related Data Allergies Allergy/AdvReac Type Severity Reaction Status Date / Time capsaicin Allergy UNKNOWN Verified 07/08/16 10:59 codeine Allergy Nausea and Verified 07/08/16 10:59 Vomiting ibuprofen Allergy Itching Verified 07/08/16 10:59 pregabalin Allergy CONTACT Verified 07/08/16 10:59 DERMATITIS ALLERGY Home Meds: Home Meds Albuterol [Proventil HFA] 1 puff INH Q4HR PRN 10/08/13 [History] Aspirin [Ecotrin] 81 mg PO DAILY 10/08/13 [History] FLUoxetine [PROzac] 20 mg PO DAILY 10/08/13 [History] Formoterol/Mometasone [Dulera 100 MCG/5 MCG] 2 puff INH BID 10/08/13 [History] Omeprazole [priLOSEC OTC] 20 mg PO DAILY 10/08/13 [History] Simvastatin [Zocor] 20 mg PO QPM 10/08/13 [History] Tiotropium [Spiriva HandiHaler] 18 mcg INH DAILY 10/08/13 [History] Tolterodine Tartrate [Tolterodine Tartrate ER] 2 mg PO DAILY 10/08/13 [History] sitaGLIPtin Phos/Metformin HCl [Janumet 50-500 MG] 1 tab PO BIDAC 10/08/13 [ History] traZODone HCl [Trazodone HCl] 1 tab PO BEDTIME 10/08/13 [History] Gabapentin [Neurontin] 300 mg PO TID 03/17/16 [History] ARIPiprazole [Abilify] 10 mg PO BID 03/18/16 [History] Acetaminophen/HYDROcodone [[place] 325-10 MG] 1 tab PO Q4H PRN #0 tablet 03/22/16 [Rx] Insulin Detemir [Levemir] 25 unit SUBCUT BEDTIME pen 03/22/16 [Rx] Lisinopril [Prinivil] 20 mg PO DAILY tablet 03/22/16 [Rx] Nicotine [Habitrol] 14 mg TRDERM DAILY patch 03/22/16 [Rx] Piperacillin/Tazobactam [Zosyn] 3.375 gm IV Q6HR vial 03/22/16 [Rx] Sodium Chloride 0.9% [Normal Saline] 75 ml IV ASDIRECTED #0 bag 03/22/16 [Rx] Past Medical History HEENT History: Reports: Glaucoma, Impaired Vision Other HEENT History: 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 Cardiovascular History: Reports: High Cholesterol, Hypertension, [place], Stents Respiratory History: Reports: Asthma, COPD, SOB Gastrointestinal History: Reports: Gastritis, GERD, Hemorrhoids Genitourinary History: Reports: None, Urinary Incontinence 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: Reports: 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, Other (See Below) Other OB/BYN History: hysterectomy Musculoskeletal History: Reports: Arthritis, Back Pain, Chronic, Fibromyalgia Neurological History: Reports: None, Migraines Other Neuro History: hx of migraines; states she doesn't get them anymore Psychiatric History: Reports: None Endocrine/Metabolic History: Reports: Diabetes, Type II Hematologic History: Reports: None Immunologic History: Reports: None Oncologic (Cancer) History: Reports: None Dermatologic History: Reports: Cellulitis, Other (See Below) Other Dermatologic History: poor circulation in legs - Infectious Disease History Infectious Disease History: Reports: None - Past Surgical History Head Surgeries/Procedures: Reports: None HEENT Surgical History: Reports: Cataract Surgery, Eye Surgery, Laser Surgery Cardiovascular Surgical History: Reports: Coronary Artery Stent GI Surgical History: Reports: None Neurological Surgical History: Reports: None Social & Family History - Family History HEENT: Reports: None Cardiac: Reports: None Respiratory: Reports: None GI: Reports: None OBGYN: Reports: None Musculoskeletal: Reports: Fibromyalgia Other Musculoskeletal Family History: cousin Neurological: Reports: None Psychiatric: Reports: None Oncologic: Reports: Breast Other Oncologic Family History: Aunt had breast cancer - Tobacco Use Smoking Status *Q: Light Tobacco Smoker Years of Tobacco use: 35 Packs/Tins Daily: 0.2 Used Tobacco, but Quit: No Second Hand Smoke Exposure: Yes - Caffeine Use Caffeine Use: Reports: Coffee Caffeine Use Comment: 4 cups in morning and 1 in the evening - Alcohol Use Days Per Week of Alcohol Use: 0 - Recreational Drug Use Recreational Drug Use: No Recreational Drug Type: Reports: Marijuana/Hashish Recreational Drug Use Frequency: Socially ED ROS GENERAL - Review of Systems Review Of Systems: See Below ED EXAM, GENERAL - Physical Exam Exam: See Below Exam Limited By: No Limitations General Appearance: Alert, WD/WN, No Apparent Distress Ears: Normal External Exam, Normal Canal Nose: Normal Inspection, Normal Mucosa, No Blood Throat/Mouth: Normal Inspection, Normal Oropharynx Head: Atraumatic, Normocephalic Neck: Normal Inspection, Supple, Non-Tender Respiratory/Chest: No Respiratory Distress, No Accessory Muscle Use, Decreased Breath Sounds, Rales (bilaterally up about 50% of the lung field.), Wheezing ( very late expiratory wheezing very minimal). No: Rhonchi, Stridor, Accessory Muscle Use Cardiovascular: Normal Peripheral Pulses (except for left lower extremity which is quite swollen and difficult to palpate.), Regular Rate, Rhythm GI/Abdominal: Normal Bowel Sounds, Soft, Non-Tender (Female) Exam: Deferred Rectal (Female) Exam: Deferred Back Exam: Normal Inspection Extremities: Pedal Edema (on the right lower extremity she has 1+ pitting edema. On the left lower extremity she has 2+ pitting edema up to her knee.), Leg Pain (tenderness to the left lower lateral tib-fib region where chronic ulcers present.) Neurological: Alert, Oriented Psychiatric: Normal Affect Skin Exam: Warm, Increased Warmth (left lower extremity slightly more warm than the right. No erythema.), Wound/Incision (on the left lower lateral tib-fib just proximal to the lateral malleolus there is an ulcer that is draining serous drainage. There is no erythema with good granular tissue. There is a small wound in the middle of it that is more broken down it is nonerythematous. There is no a to date from that area either. There is no cellulitic component surrounding the ulcer.) Lymphatic: No Adenopathy EKG INTERPRETATION EKG Date: 07/08/16 Time: 10:42 Rhythm: NSR Rate (beats/min): 86 Ronan: normal P-wave: present QRS: normal ST-T: normal QT: normal Comparison: no change Course - Vital Signs Last Recorded V/S: Last Vital Signs Temp 35.9 C 07/08/16 10:27 Pulse 89 07/08/16 10:27 Resp 18 07/08/16 10:27 BP 165/80 H 07/08/16 10:27 Pulse Ox 95 07/08/16 10:27 Vital Signs 07/08/16 10:27 Temperature [ 35.9 C Temporal] Pulse, 89 Peripheral [ Pulse Oximetry] Respiratory 18 Rate Blood Pressure 165/80 H [Left Upper Arm ] O2 Sat by Pulse 95 Oximetry - Orders/Labs/Meds Orders: Active Orders 24 hr Category Date Time Status EKG 12 Lead [EKG Documentation Completion] [RC] URGENT Care 07/08/16 10:45 Active Peripheral IV Care [RC] . DIRECTED Care 07/08/16 10:45 Active RT Aerosol Therapy [RC] ASDIRECTED Care 07/08/16 11:27 Active Sodium Chloride 0.9% [Saline Flush] Med 07/08/16 10:45 Active 10 ml FLUSH ASDIRECTED PRN Peripheral IV Insertion Adult [OM.PC] Stat Oth 07/08/16 10:45 Ordered Medication Orders Sodium Chloride (Saline Flush) 10 ml FLUSH ASDIRECTED PRN PRN Reason: Keep Vein Open Last Admin: 07/08/16 11:03 Dose: 10 ml Labs: Laboratory Tests 07/08/16 07/08/16 07/08/16 Range/Units 10:35 10:35 10:35 WBC 7.0 (5.0-10.0) 10^3/uL RBC 3.33 L (4.2-5.4) 10^6/uL Hgb 10.1 L (12.0-16.0) g/dL Hct 31.1 L (37.0-47.0) % MCV 93.4 (80-100) fL MCH 30.3 (27.0-34.0) pg MCHC 32.5 L (33.0-35.0) g/dL Plt Count 328 (150-450) 10^3/uL Neut % (Auto) 72.4 (42.2-75.2) % Lymph % (Auto) 15.1 L (20.5-50.1) % [place] % (Auto) 7.9 (2-8) % Eos % (Auto) 3.2 H (1.0-3.0) % Baso % (Auto) 1.4 H (0.0-1.0) % Sodium 131 L (135-145) mmol/L Potassium 4.0 (3.6-5.0) mmol/L Chloride 103 (101-111) mmol/L Carbon Dioxide 22.0 (21.0-31.0) mmol/L Anion Gap 10.0 BUN 27 H (7-18) mg/dL Creatinine 1.2 (0.6-1.3) mg/dL Est Cr Clr Drug Dosing 41.76 mL/min Estimated GFR (MDRD) 46 BUN/Creatinine Ratio 22.50 Glucose 204 H (74-105) mg/dL Calcium 8.4 (8.4-10.2) mg/dl Total Bilirubin 0.6 (0.2-1.0) mg/dL AST 29 (10-42) IU/L ALT 25 (10-60) IU/L Alkaline Phosphatase 148 H (42-121) IU/L Troponin I 0.03 H* (0.00-0.02) ng/ml C-Reactive Protein 0.7 (0.0-1.3) mg/dL B-Natriuretic Peptide 3940 H (0-100) pg/ml Total Protein 6.5 L (6.7-8.2) g/dl Albumin 2.5 L (3.2-5.5) g/dl Globulin 4.0 Albumin/Globulin Ratio 0.63 Meds: Medications Generic Name Dose Route Start Last Admin Trade Name Freq PRN Reason Stop Dose Admin Sodium Chloride 10 ml 07/08/16 10:45 07/08/16 11:03 Saline Flush FLUSH 10 ml ASDIRECTED PRN Administration Keep Vein Open Discontinued Medications Generic Name Dose Route Start Last Admin Trade Name Freq PRN Reason Stop Dose Admin Albuterol/Ipratropium 3 ml 07/08/16 11:27 07/08/16 11:34 Duoneb 3.0-0.5 Mg/3 Ml NEB 07/08/16 11:28 3 ml ONETIME ONE Administration - Radiology Interpretation Free Text/Narrative:: chest x-ray reviewed from previously by myself. Noted loss of the right heart border question infiltrate versus atelectasis. Pulmonary vascular congestion appears better compared to the last chest x-ray. Per radiology relative improvement of the pulmonary vasculature congestion pattern from previous chest x-ray. New right middle lobe atelectasis or infiltrate. - Re-Assessments/Exams Free Text/Narrative Re-Assessment/Exam: 07/08/16 12:21 after the laboratory values were returned as well as a chest x-ray I relayed the findings the patient. It is clear that she is in worsening congestive heart failure although her renal function is somewhat improved and has been in the past and her report of minimal urine output and recent short term dialysis concern for inpatient management here of this rather comorbid patient. Her troponin is mildly elevated although it is chronically elevated and this is the lowest her troponin has been in the last couple months. This is most likely related to her history of renal failure. With the above comorbid concerns explained her that transfer to a tertiary care centers most appropriate at this time and she agreed. Patient is excepted at [facility] and will be sent by [facility]. Departure - Departure Time of Disposition: 12:17 Disposition: DC/Tfer to Other 70 Condition: good Clinical Impression: Elevated troponin, Hyponatremia Acute exacerbation of CHF (congestive heart failure) Qualifiers: Congestive heart failure type: unspecified congestive heart failure type Qualified Code(s): I50.9 - Heart failure, unspecified - Discharge Information Forms: ED Department Discharge ED Communication - ED Communication Date/Time Date: 07/08/16 (Discussed the case with Dr. Wheeler AT [facility] in [place] and my concerns of her CHF and hx of renal failure and he accepted the patient in transfer to his care in [place]. ) Time Called: 12:06 - My Orders Last 24 Hours: My Active Orders 07/08/16 10:45 EKG 12 Lead [EKG Documentation Completion] [RC] URGENT Peripheral IV Care [RC] . DIRECTED Sodium Chloride 0.9% [Saline Flush] 10 ml FLUSH ASDIRECTED PRN Peripheral IV Insertion Adult [OM.PC] Stat 07/08/16 11:27 RT Aerosol Therapy [RC] ASDIRECTED - Assessment/Plan Last 24 Hours: My Active Orders 07/08/16 10:45 EKG 12 Lead [EKG Documentation Completion] [RC] URGENT Peripheral IV Care [RC] . DIRECTED Sodium Chloride 0.9% [Saline Flush] 10 ml FLUSH ASDIRECTED PRN Peripheral IV Insertion Adult [OM.PC] Stat 07/08/16 11:27 RT Aerosol Therapy [RC] ASDIRECTED Assessment:: congestive heart failure. Shortness of breath. Right middle lobe atelectasis vs pneumonia. Elevated troponin. HTN Hypoxia requiring oxygen therapy. HX of recent short term dialysis. history of renal failure. History diabetes. History of COPD. History coronary artery disease. Plan: transfer by ALS ambulance to [facility] under the care of Dr. Wheeler. THanks for accepting this patient into your care in the past. }
--- NOTE | 2016-07-08 11:19 | CR ---
{null, CLINICAL HISTORY: 61-year-old female with chest pain and shortness of breath who was reported on rec ent chest radiograph 03 June 2016 to have "central vascular congestion with nodular interstitial an d patchy airspace opacities" ("worsening pulmonary edema" suggested on subsequent film of May 22 017). Reevaluate please. INTERPRETATION: Markedly abnormal but some interval resolution (clearing) of the previously noted "a irspace or alveolar consolidation". Cardiac silhouette unchanged. Subtle blunting of the costophreni c sulcus on the right with some fluid in the minor fissure. NOTE: New silhouetting of the right heart border consistent with middle lobe atelectasis or infiltra te. No lung mass but new left lower lobe atelectasis present. CONCLUSION: Relative improvement of the pulmonary vascular congestion pattern suggested on 08 June 2016 exam but new right middle lobe/left lower lobe atelectasis or infiltrates. }
[2016-07-08] MEDS ORDERED: Albuterol/Ipratropium 3.0-0.5 MG/3 ML Neb Soln NEB ONE (11:27)
[2016-07-08] MEDS ORDERED: Acetaminophen 500 MG Tab PO ONE (13:05)
--- NOTE | 2016-07-12 13:44 | EKG ---
{null, 07/08/2016- ROSEMARY TALAMANTES - Anni 12-lead EKG shows normal sinus rhythm. Nonspecific changes noted on lead V6, could be lead placement. No significant ST elevation or ST depression noted on this 12-lead EKG. Nonspecific ST-T changes noted on lead V2, V3, and V6. [facility] /[id number] }
== END 2016-07-08 13:17 | disposition other institution (70) ==
LOC: DL.ED 10:25
DX: E87.1 Hypo-osmolality and hyponatremia (principal); I11.0 Hypertensive heart disease with heart failure; I50.9 Heart failure, unspecified; J45.909 Unspecified asthma, uncomplicated; J44.9 Chronic obstructive pulmonary disease, unspecified; E78.00 Pure hypercholesterolemia, unspecified; F17.210 Nicotine dependence, cigarettes, uncomplicated; K21.9 Gastro-esophageal reflux disease without esophagitis; M19.90 Unspecified osteoarthritis, unspecified site; G43.909 Migraine, unspecified, not intractable, without status migrainosus; E11.9 Type 2 diabetes mellitus without complications; Z90.710 Acquired absence of both cervix and uterus; Z98.49 Cataract extraction status, unspecified eye; Z98.890 Other specified postprocedural states; Z88.5 Allergy status to narcotic agent; Z88.6 Allergy status to analgesic agent; Z88.8 Allergy status to other drugs, medicaments and biological substances; Z79.82 Long term (current) use of aspirin; Z79.899 Other long term (current) drug therapy; Z79.4 Long term (current) use of insulin
CPT/HCPCS: 36415; 71020; 80053; 83880; 84484; 85025; 86140; 93005; 99285; A9270; J7050

== ENCOUNTER 2016-07-19 15:29 | Observation (INO) | payer MEDICAID ==
[2016-07-19] MEDS ORDERED: Lisinopril 10 MG Tab PO ONE (15:59)
--- NOTE | 2016-07-19 16:06 | EDM.PDOC ---
ED HPI GENERAL MEDICAL PROBLEM - General Chief Complaint: General Stated Complaint: IN BY AMBULANCE Time Seen by Provider: 07/19/16 15:55 Source of Information: Reports: Patient, EMS, RN Notes Reviewed History Limitations: Reports: Other (poor historian) - History of Present Illness INITIAL COMMENTS - FREE TEXT/NARRATIVE: patient is a 61-year-old female with chronic hypertension and uncontrolled diabetes mellitus who presents today via EMS after she was at the [facility] health clinic with a friend and the nurse took her blood pressure and decided that it was very high and had her transported for blood pressure control. EMS states that the blood pressure was 190/103. In no acute distress states that she has chronic high blood pressure and has not taken her meds today. She has a bag of meds with her that contains clonodine and Carvediloleven though she tells us that her sister locked her medications in her house last weekend she has been unable to get them to she is also noted to have a large open area on the left lateral lower chest are made distally that is open the patient states it has been there for many months and she is scheduled to have a skin graft in 2 weeks. She states it is being managed by the clinic Quality: Reports: Other (no pain report) Severity: Mild Improves with: Reports: None Worsens with: Reports: None - Related Data Allergies Allergy/AdvReac Type Severity Reaction Status Date / Time capsaicin Allergy UNKNOWN Verified 07/19/16 15:49 codeine Allergy Nausea and Verified 07/19/16 15:49 Vomiting ibuprofen Allergy Itching Verified 07/19/16 15:49 pregabalin Allergy CONTACT Verified 07/19/16 15:49 DERMATITIS ALLERGY Home Meds: Home Meds ARIPiprazole [Aripiprazole] 10 mg PO ASDIRECTED 07/19/16 [History] Albuterol Sulfate [Ventolin Hfa] 18 gm IH ASDIRECTED 07/19/16 [History] Albuterol/Ipratropium [DuoNeb 3.0-0.5 MG/3 ML] 1 mg PO ASDIRECTED 07/19/16 [ History] Aspirin 81 mg PO BRK 07/19/16 [History] Bumetanide 2 mg PO ASDIRECTED 07/19/16 [History] Carvedilol 25 mg PO ASDIRECTED 07/19/16 [History] Ergocalciferol (Vitamin D2) [Vitamin D2] 50,000 units PO Q7D 07/19/16 [History] FLUoxetine HCl [Prozac] 20 mg PO ASDIRECTED 07/19/16 [History] Fluticasone/Salmeterol [Advair 250-50 Diskus] 1 each IH ASDIRECTED 07/19/16 [ History] Gabapentin [Neurontin] 300 mg PO TID 07/19/16 [History] Metolazone 5 mg PO ASDIRECTED 07/19/16 [History] Mometasone/Formoterol [Dulera 200-5 MCG] 1 dose .ROUTE ASDIRECTED 07/19/16 [ History] Nicotine [Nicotine Patch] 1 .ROUTE ASDIRECTED 07/19/16 [History] Ofloxacin [Floxin 0.3% Otic Soln] 1 drop EYELF ASDIRECTED 07/19/16 [History] Pantoprazole [ProTONIX] 40 mg PO ONETIME 07/19/16 [History] Sennosides 8.6 mg PO 07/19/16 [History] Simvastatin [Zocor] 20 mg PO BEDTIME 07/19/16 [History] Ticagrelor [Brilinta] 90 mg PO BID 07/19/16 [History] Tiotropium [Spiriva HandiHaler] 07/19/16 [History] Tolterodine [Detrol] 07/19/16 [History] cloNIDine HCl [Catapres] 0.1 mg PO 07/19/16 [History] hydrALAZINE HCl [Hydralazine HCl] 25 mg PO 07/19/16 [History] traZODone HCl [Trazodone HCl] 150 mg PO 07/19/16 [History] Past Medical History HEENT History: Reports: Glaucoma, Impaired Vision Other HEENT History: 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 Cardiovascular History: Reports: High Cholesterol, Hypertension, [place], Stents Respiratory History: Reports: Asthma, COPD, SOB Gastrointestinal History: Reports: Gastritis, GERD, Hemorrhoids Genitourinary History: Reports: None, Urinary Incontinence 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: Reports: 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, Other (See Below) Other OB/BYN History: hysterectomy Musculoskeletal History: Reports: Arthritis, Back Pain, Chronic, Fibromyalgia Neurological History: Reports: None, Migraines Other Neuro History: hx of migraines; states she doesn't get them anymore Psychiatric History: Reports: None Endocrine/Metabolic History: Reports: Diabetes, Type II Hematologic History: Reports: None Immunologic History: Reports: None Oncologic (Cancer) History: Reports: None Dermatologic History: Reports: Cellulitis, Other (See Below) Other Dermatologic History: poor circulation in legs - Infectious Disease History Infectious Disease History: Reports: None - Past Surgical History Head Surgeries/Procedures: Reports: None HEENT Surgical History: Reports: Cataract Surgery, Eye Surgery, Laser Surgery Cardiovascular Surgical History: Reports: Coronary Artery Stent GI Surgical History: Reports: None Neurological Surgical History: Reports: None Social & Family History - Family History HEENT: Reports: None Cardiac: Reports: None Respiratory: Reports: None GI: Reports: None OBGYN: Reports: None Musculoskeletal: Reports: Fibromyalgia Other Musculoskeletal Family History: cousin Neurological: Reports: None Psychiatric: Reports: None Oncologic: Reports: Breast Other Oncologic Family History: Aunt had breast cancer - Tobacco Use Smoking Status *Q: Light Tobacco Smoker Years of Tobacco use: 35 Packs/Tins Daily: 0.2 Used Tobacco, but Quit: No Second Hand Smoke Exposure: Yes - Caffeine Use Caffeine Use: Reports: Coffee Caffeine Use Comment: 4 cups in morning and 1 in the evening - Alcohol Use Days Per Week of Alcohol Use: 0 - Recreational Drug Use Recreational Drug Use: No Recreational Drug Type: Reports: Marijuana/Hashish Recreational Drug Use Frequency: Socially ED ROS GENERAL - Review of Systems Review Of Systems: ROS reveals no pertinent complaints other than HPI. 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), Bilateral Eye: Abnormal EOM Ears: Normal External Exam, Normal Canal, Hearing Grossly Normal, Normal TMs Ear Exam: Bilateral Ear: Auricle Normal, Canal Normal, TM normal Nose: Normal Inspection, Normal Mucosa, No Blood Throat/Mouth: Normal Inspection, Normal Lips, Normal Teeth, Normal Gums, Normal Oropharynx, Normal Voice, No Airway Compromise Head: Atraumatic, Normocephalic Neck: Normal Inspection, Supple, Non-Tender, Full Range of Motion Respiratory/Chest: No Respiratory Distress, Lungs Clear, Normal Breath Sounds, No Accessory Muscle Use, Chest Non-Tender Cardiovascular: Normal Peripheral Pulses, Regular Rate, Rhythm, No Edema, No Gallop, No JVD, No Murmur, No Rub Peripheral Pulses: 3+: Brachial (L), Brachial (R), Radial (L), Radial (R), Femoral (L), Femoral (R), Posterior Tibial (L), Posterior Tibial (R), Dorsalis Pedis (L), Dorsalis Pedis (R), 4+: Carotid (L), Carotid (R) GI/Abdominal: Normal Bowel Sounds, Soft, Non-Tender, No Organomegaly, No Distention, No Abnormal Bruit, No Mass Neurological: Alert, Oriented, CN II-XII Intact, Normal Cognition, Normal Gait, Normal Reflexes, No Motor/Sensory Deficits Psychiatric: Normal Affect, Normal Mood Skin Exam: Warm, Dry, Intact, Normal Color, No Rash, Other (there is an old lead and by 13 area to the left lower extremity laterally that is open with slight serosanguineous drainage noted.) Course - Vital Signs Last Recorded V/S: Last Vital Signs Temp 97.8 F 07/19/16 15:40 Pulse 109 H 07/19/16 15:40 Resp 22 H 07/19/16 15:40 BP 180/92 H 07/19/16 15:40 Pulse Ox 93 L 07/19/16 15:40 - Orders/Labs/Meds Meds: Medications Discontinued Medications Generic Name Dose Route Start Last Admin Trade Name Freq PRN Reason Stop Dose Admin Lisinopril 10 mg 07/19/16 15:59 Prinivil PO 07/19/16 16:00 ONETIME ONE - Re-Assessments/Exams Free Text/Narrative Re-Assessment/Exam: 07/19/16 16:06 patient will be given lisinopril in the emergency room for her blood pressure and educated on the use of the blood pressure medication she has with her and her bag. After Grazyna Krishnamurthy INTERSTATE BUS DISPATCHERnet development manager spoke with Dr. Delgado -who wishes that the patient be admitted for alf placement. Discussed with Dr. Villagomez hospitalist for admission. 07/19/16 17:22 Departure - Departure Time of Disposition: 17:23 Disposition: Admitted As Inpatient 66 Condition: good Clinical Impression: Chronic hypertension Wound of left lower extremity Qualifiers: Encounter type: subsequent encounter Qualified Code(s): S81.802D - Unspecified open wound, left lower leg, subsequent encounter - Discharge Information
[2016-07-19] MEDS ORDERED: Bacitracin Oint 1 GM U/D Packet ONE (16:29)
[2016-07-19] MEDS ORDERED: Sodium Chloride 0.9% 10 ML Syringe FLUSH PRN ×2 (17:20→18:35)
[2016-07-19] MEDS ORDERED: Bacitracin Oint 1 GM U/D Packet TOP ONE (17:23)
[2016-07-19 18:03] LABS: CHLORIDE,CL 101 mmol/L (101-111); SODIUM,NA 134 mmol/L (135-145)
[2016-07-19] MEDS ORDERED: Albuterol 6.7 GM Inhaler INH PRN (18:29)
[2016-07-19] MEDS ORDERED: Pantoprazole 40 MG Tab.CR PO SCH (18:30)
[2016-07-19] MEDS ORDERED: Zolpidem 5 MG Tab PO PRN (18:35)
[2016-07-19] MEDS ORDERED: Acetaminophen 325 MG Tab PO PRN (18:35)
--- NOTE | 2016-07-19 18:50 | PCM.HP ---
H&P History of Present Illness - General Date of Service: 07/19/16 Admit Problem/Dx: Admission Diagnosis/Problem Admission Diagnosis/Problem HTN, Malignant essential hypertension, High Blood Pressure Source of Information: Patient, Old Records (4 multiple hospital discharge summary), Provider (this is a Dr. Delgado) - History of Present Illness Initial Comments - Free Text/Narative: the patient is a 61-year-old lady She has a history of hypertension, diabetes, Depression. the patient was recent hospitalized at all to hospital and was treated for acute congestive heart failure and pneumonia. She was also noted to have a left lower extremity large wound. after discharge and the patient lived with it the sister for a while but then she moved out and practically has been homeless She says she was not taking her medications in the past few days because his sister blocked them up. She was staying with a friend. The friends home care nurse checked the patient' s blood pressure. Blood pressure was noted to be above 200 and the patient was sent to the emergency room. She denies chest pain, no shortness of breath, no fever or chills lately. - Related Data Allergies/Adverse Reactions: Allergies Allergy/AdvReac Type Severity Reaction Status Date / Time capsaicin Allergy UNKNOWN Verified 07/19/16 15:49 codeine Allergy Nausea and Verified 07/19/16 15:49 Vomiting ibuprofen Allergy Itching Verified 07/19/16 15:49 pregabalin Allergy CONTACT Verified 07/19/16 15:49 DERMATITIS ALLERGY Home Medications: Home Meds ARIPiprazole [Aripiprazole] 10 mg PO BID 07/19/16 [History] Albuterol Sulfate [Ventolin Hfa] 1 puff IH Q6H PRN 07/19/16 [History] Albuterol/Ipratropium [DuoNeb 3.0-0.5 MG/3 ML] 1 mg PO ASDIRECTED 07/19/16 [ History] Aspirin 81 mg PO BRK 07/19/16 [History] Bumetanide 2 mg PO BID 07/19/16 [History] Carvedilol 12.5 mg PO BID 07/19/16 [History] Ergocalciferol (Vitamin D2) [Vitamin D2] 50,000 units PO Q7D 07/19/16 [History] FLUoxetine HCl [Prozac] 20 mg PO DAILY 07/19/16 [History] Gabapentin [Neurontin] 300 mg PO TID 07/19/16 [History] Insulin Detemir [Levemir] 30 unit SUBCUT BEDTIME 07/19/16 [History] Lisinopril 2.5 mg PO DAILY 07/19/16 [History] Metolazone 5 mg PO Q72H 07/19/16 [History] Mometasone/Formoterol [Dulera 100-5 MCG] 1 puff IN BID 07/19/16 [History] Nicotine [Nicotine Patch] 21 mg TOP DAILY 07/19/16 [History] Pantoprazole [ProTONIX] 40 mg PO ONETIME 07/19/16 [History] Simvastatin [Zocor] 20 mg PO BEDTIME 07/19/16 [History] Ticagrelor [Brilinta] 90 mg PO BID 07/19/16 [History] Tiotropium [Spiriva HandiHaler] 18 mcg IN DAILY 07/19/16 [History] Tolterodine [Detrol] 2 mg PO BID 07/19/16 [History] Past Medical History HEENT History: Reports: Glaucoma, Impaired Vision Other HEENT History: 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 Cardiovascular History: Reports: High Cholesterol, Hypertension, PA, Stents Respiratory History: Reports: Asthma, COPD, SOB Gastrointestinal History: Reports: Gastritis, GERD, Hemorrhoids Genitourinary History: Reports: None, Urinary Incontinence 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: Reports: 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, Other (See Below) Other OB/BYN History: hysterectomy Musculoskeletal History: Reports: Arthritis, Back Pain, Chronic, Fibromyalgia Neurological History: Reports: None, Migraines Other Neuro History: hx of migraines; states she doesn't get them anymore Psychiatric History: Reports: None Endocrine/Metabolic History: Reports: Diabetes, Type II Hematologic History: Reports: None Immunologic History: Reports: None Oncologic (Cancer) History: Reports: None Dermatologic History: Reports: Cellulitis, Other (See Below) Other Dermatologic History: poor circulation in legs - Infectious Disease History Infectious Disease History: Reports: None - Past Surgical History Head Surgeries/Procedures: Reports: None HEENT Surgical History: Reports: Cataract Surgery, Eye Surgery, Laser Surgery Cardiovascular Surgical History: Reports: Coronary Artery Stent GI Surgical History: Reports: None Neurological Surgical History: Reports: None Social & Family History - Family History HEENT: Reports: None Cardiac: Reports: None Respiratory: Reports: None GI: Reports: None OBGYN: Reports: None Musculoskeletal: Reports: Fibromyalgia Other Musculoskeletal Family History: cousin Neurological: Reports: None Psychiatric: Reports: None Oncologic: Reports: Breast Other Oncologic Family History: Aunt had breast cancer - Tobacco Use Smoking Status *Q: Light Tobacco Smoker Years of Tobacco use: 35 Packs/Tins Daily: 0.2 Used Tobacco, but Quit: No Month Tobacco Last Used: mar Second Hand Smoke Exposure: Yes - Caffeine Use Caffeine Use: Reports: Coffee Caffeine Use Comment: 4 cups in morning and 1 in the evening - Alcohol Use Days Per Week of Alcohol Use: 0 - Recreational Drug Use Recreational Drug Use: No Recreational Drug Type: Reports: Marijuana/Hashish Recreational Drug Use Frequency: Socially H&P Review of Systems - Review of Systems: Review Of Systems: See Below General: Denies: Fever, Chills Pulmonary: Denies: Shortness of Breath, Wheezing Cardiovascular: Reports: Edema. Denies: Chest Pain Gastrointestinal: Denies: Abdominal Pain Skin: Reports: Wound Exam - Exam Exam: See Below - Vital Signs Vital Signs: Last Vital Signs Temp 36.5 C 07/19/16 17:40 Pulse 100 07/19/16 17:40 Resp 18 07/19/16 17:40 BP 185/94 H 07/19/16 18:05 Pulse Ox 96 07/19/16 17:40 Weight: 68.039 kg - Exam General: Alert, Oriented HEENT: Other (he is a left cornea) Neck: Supple Lungs: Clear to Auscultation. No: Wheezing Cardiovascular: Regular Rate, Regular Rhythm Abdomen: Normal Bowel Sounds, Soft Extremities: Edema (bilateral), Other (left leg lateral surface large area of her wound, good granulation tissue.) Psychiatric: Alert, Normal Affect, Normal Mood - Patient Data Result Diagrams: 07/19/16 17:39 07/19/16 17:39 *Q Meaningful Use (ADM) - VTE *Q VTE Criteria *Q: - Stroke *Q Stroke Criteria *Q: - AMI *Q AMI Criteria *Q: - Problem List (1) Wound of left lower extremity SNOMED Code(s): 947111878, 660839073 ICD Code: S81.802A - UNSPECIFIED OPEN WOUND, LEFT LOWER LEG, INITIAL ENCOUNTER Status: Acute Current Visit: Yes Qualifiers: Encounter type: subsequent encounter Qualified Code(s): S81.802D - Unspecified open wound, left lower leg, subsequent encounter (2) COPD (chronic obstructive pulmonary disease) SNOMED Code(s): 24442128 ICD Code: J44.9 - CHRONIC OBSTRUCTIVE PULMONARY DISEASE, UNSPECIFIED Status : Chronic Current Visit: No (3) Diabetes mellitus SNOMED Code(s): 10307926 ICD Code: E11.9 - TYPE 2 DIABETES MELLITUS WITHOUT COMPLICATIONS Status: Chronic Current Visit: No Problem List Initiated/Reviewed/Updated: Yes Orders Last 24hrs: Active Orders 24 hr Category Date Time Status Oxygen Therapy [RC] PRN Care 07/19/16 18:36 Ordered Up With Assistance [RC] ASDIRECTED Care 07/19/16 18:35 Ordered VTE/DVT Education [RC] PER UNIT ROUTINE Care 07/19/16 18:36 Ordered Vital Signs [RC] Q4H Care 07/19/16 18:36 Ordered Consistent Carbohydrate Diet [DIET] Diet 07/19/16 Breakfast Ordered ARIPiprazole [Aripiprazole] Med 07/19/16 21:00 Ordered 10 mg PO BID Acetaminophen [Tylenol] Med 07/19/16 18:35 Ordered 650 mg PO Q4H PRN Albuterol [Proventil HFA] Med 07/19/16 18:29 Ordered 1 puff INH Q6H PRN Aspirin Med 07/19/16 18:30 Ordered 81 mg PO BRK Bumetanide [Bumetanide] Med 07/19/16 21:00 Ordered 2 mg PO BID Carvedilol [Coreg] Med 07/19/16 21:00 Ordered 12.5 mg PO BID FLUoxetine HCl [Prozac] Med 07/20/16 09:00 Ordered 20 mg PO DAILY Gabapentin [Neurontin] Med 07/19/16 21:00 Ordered 300 mg PO TID Heparin Sodium Med 07/19/16 22:00 Ordered 5,000 units SUBCUT Q8HR Insulin Detemir Med 07/19/16 21:00 Ordered 30 unit SUBCUT BEDTIME Lisinopril [Lisinopril] Med 07/20/16 09:00 Ordered 2.5 mg PO DAILY Mometasone/Formoterol [Dulera 100-5 MCG] Med 07/19/16 21:00 Ordered 1 puff IH BID Nicotine [Habitrol] Med 07/20/16 09:00 Ordered 21 mg TOP DAILY Pantoprazole [ProTONIX] Med 07/19/16 18:30 Ordered 40 mg PO ONETIME Simvastatin [Zocor] Med 07/19/16 21:00 Ordered 20 mg PO BEDTIME Sodium Chloride 0.9% [Saline Flush] Med 07/19/16 18:35 Ordered 10 ml FLUSH ASDIRECTED PRN Ticagrelor [Brilinta] Med 07/19/16 21:00 Ordered 90 mg PO BID Tiotropium [Spiriva HandiHaler] Med 07/20/16 09:00 Ordered 18 mcg INH DAILY Tolterodine [Detrol] Med 07/19/16 21:00 Ordered 2 mg PO BID Zolpidem [Ambien] Med 07/19/16 18:35 Ordered 5 mg PO BEDTIME PRN oxyCODONE Med 07/19/16 18:35 Ordered 5 mg PO Q4H PRN Saline Lock Insert [OM.PC] Routine Oth 07/19/16 18:35 Ordered Resuscitation Status Routine Resus Stat 07/19/16 18:35 Ordered Medication Orders Acetaminophen (Tylenol) 650 mg PO Q4H PRN PRN Reason: Pain (Mild 1-3)/fever Albuterol (Proventil Hfa) gm INH Q6H PRN PRN Reason: Wheezing Aspirin (Aspirin) 81 mg PO BRK [place] Carvedilol (Coreg) 12.5 mg PO BID [facility] Gabapentin (Neurontin) 300 mg PO TID [place] Heparin Sodium (Porcine) (Heparin Sodium) 5,000 units SUBCUT Q8HR [place] Mometasone Furoate/Formoterol Fumar (Dulera 100-5 Mcg) 1 puff IH BID [facility] Nicotine (Habitrol) 21 mg TOP DAILY [facility] Non-Formulary Medication (Bumetanide [Bumetanide]) 2 mg PO BID [place] Non-Formulary Medication (Lisinopril [Lisinopril]) 2.5 mg PO DAILY [facility] Non-Formulary Medication (Aripiprazole [Aripiprazole]) 10 mg PO BID [place] Non-Formulary Medication (Fluoxetine Hcl [Prozac]) 20 mg PO DAILY [place] Non-Formulary Medication (Ticagrelor [Brilinta]) 90 mg PO BID [place] Non-Formulary Medication (Insulin Detemir) 30 unit SUBCUT BEDTIME [facility] Non-Formulary Medication (Simvastatin [Zocor]) 20 mg PO BEDTIME [facility] Oxycodone HCl (Oxycodone) 5 mg PO Q4H PRN PRN Reason: Pain (moderate 4-6) Pantoprazole Sodium (Protonix) 40 mg PO ONETIME [place] Sodium Chloride (Saline Flush) 10 ml FLUSH ASDIRECTED PRN PRN Reason: Keep Vein Open Sodium Chloride (Saline Flush) 10 ml FLUSH ASDIRECTED PRN PRN Reason: Keep Vein Open Tiotropium [place] (Spiriva Handihaler) 18 mcg INH DAILY [facility] Tolterodine Tartrate (Detrol) 2 mg PO BID [place] Zolpidem Tartrate (Ambien) 5 mg PO BEDTIME PRN PRN Reason: Sleep Assessment/Plan Comment:: the patient is a 61-year-old lady who has had chronic medical conditions including diabetes prefer to reduce his coronary artery disease COPD. She has a son depression, legally blind. She does appear that she is unable to take care of her medical needs. She is also homeless. Uncontrolled hypertension The patient has not been taking medications for a few days now. I will resume her on lisinopril, Bumex, Coreg, Will monitor her blood pressure was providing these medications. COPD No apparent acute exacerbation. Will treat with bilateral, albuterol p.r.n. Depression Treat with Abilify and Prozac Large left lower extremity wound Will use Tefla dressing I do not think that there is significant cellulitis currently around the wound Diabetes Treat with levemir and mealtime short-acting insulin Follow blood sugars coronary artery disease and peripheral artery disease Continue present and aspirin, continue beta elicia
[2016-07-19] MEDS: Aspirin 81 MG Tab.Chew PO SCH (19:32)
[2016-07-19] MEDS: Heparin Sodium 5,000 Units/ML Vial SUBCUT SCH (21:07)
[2016-07-19] MEDS: oxyCODONE 5 MG Tab PO PRN (21:07)
[2016-07-19] MEDS: Bumetanide 1 MG Tab PO SCH (21:08)
[2016-07-19] MEDS: Simvastatin 40 MG Tab PO SCH (21:08)
[2016-07-19] MEDS: Gabapentin 300 MG Cap PO SCH (21:09)
[2016-07-19] MEDS: Tolterodine 2 MG Tab PO SCH (21:09)
[2016-07-19] MEDS: Carvedilol 6.25 MG Tab PO SCH (21:09)
[2016-07-19] MEDS: Formoterol/Mometasone 100-5 MCG 8.8 GM Inhaler IH SCH (21:10)
[2016-07-19] MEDS: Insulin Detemir 100 Units/ML 3 ML Pen SUBCUT SCH (21:29)
[2016-07-19] MEDS: Insulin Aspart 100 Units/ML 3 ML Pen SUBCUT SCH (21:30)
[2016-07-20] MEDS: Heparin Sodium 5,000 Units/ML Vial SUBCUT SCH ×3 (05:49→21:29)
[2016-07-20] MEDS: Insulin Aspart 100 Units/ML 3 ML Pen SUBCUT SCH ×4 (08:32→20:48)
[2016-07-20] MEDS: Tiotropium Inhaler 18 MCG Inhalation Powder Cap Kit of 5 INH SCH (08:36)
[2016-07-20] MEDS: Aspirin 81 MG Tab.Chew PO SCH (08:38)
[2016-07-20] MEDS: Gabapentin 300 MG Cap PO SCH ×3 (08:38→21:17)
[2016-07-20] MEDS: Tolterodine 2 MG Tab PO SCH ×2 (08:38→21:16)
[2016-07-20] MEDS: Formoterol/Mometasone 100-5 MCG 8.8 GM Inhaler IH SCH ×2 (08:38→21:15)
[2016-07-20] MEDS: Nicotine 21 MG/24 Hr Patch TOP SCH (08:38)
[2016-07-20] MEDS: Lisinopril 5 MG Tab PO SCH (08:39)
[2016-07-20] MEDS: Bumetanide 1 MG Tab PO SCH ×2 (08:39→21:17)
[2016-07-20] MEDS: Carvedilol 6.25 MG Tab PO SCH ×2 (08:39→21:16)
[2016-07-20] MEDS: FLUoxetine 10 MG Cap PO SCH (08:40)
--- NOTE | 2016-07-20 10:52 | PN ---
DATE: 07/20/2016 SUBJECTIVE: Ms. Mercedez Puga is a 61-year-old female with multiple medical problems. The patient was admitted mostly for social reasons. She was homeless and staying with her friend, and did not have access to her medications. Today, she indicated that she feels short of breath. This has been chronic. She is known to have CHF and COPD. Denies chest pain. No fever. No chills. No significant cough. REVIEW OF SYSTEMS: Constitutional, cardiac, respiratory, gastrointestinal, and genitourinary system were reviewed. No other pertinent findings except as noted above. OBJECTIVE: Vital Signs: Reviewed. Blood pressure is 149/70, pulse 97 per minute, respiratory rate 20 per minute. Oxygen saturation is 97%. General: The patient is alert, oriented to place, time, and person. Head: Atraumatic and normocephalic. Ear, Nose, And Throat: Unremarkable. Chest: Diminished breath sounds bilaterally. CVS: Regular rate and rhythm. Abdomen: Soft, nontender. Extremities: No edema. LABORATORY DATA: White count was 7.7, hemoglobin 11.2. Glucose is 202. Creatinine 1.0. ASSESSMENT: 1. Chronic obstructive airway disease. The patient does have shortness of breath, but it is chronic. 2. Hypertension, suboptimal control. The patient was not taking her medications. She does not have access to reads. 3. Homeless status. Needs placement. 4. Left lower extremity wound. No evidence of cellulitis this admission. 5. Chronic congestive heart failure. The patient has been on Bumex. 6. Diabetes mellitus, suboptimal control. PLAN: 1. Insulin sliding scale. 2. Insulin Levemir. 3. Continue nebulization with DuoNeb. Keep patient on Bumex. 4. Albuterol p.r.n. 5. Chart reviewed. 6. Awaiting placement. [facility] /[id number]
[2016-07-20] MEDS: oxyCODONE 5 MG Tab PO PRN ×2 (12:59→18:48)
[2016-07-20] MEDS: Simvastatin 40 MG Tab PO SCH (21:18)
[2016-07-20] MEDS: ARIPIPRAZOLE 10 MG PO SCH (21:24)
[2016-07-20] MEDS: Insulin Detemir 100 Units/ML 3 ML Pen SUBCUT SCH (21:25)
[2016-07-20] MEDS: TICAGRELOR 90 MG PO SCH (21:25)
[2016-07-21] MEDS: Heparin Sodium 5,000 Units/ML Vial SUBCUT SCH ×3 (05:28→21:01)
[2016-07-21] MEDS: Aspirin 81 MG Tab.Chew PO SCH (08:42)
[2016-07-21] MEDS: Bumetanide 1 MG Tab PO SCH ×2 (08:43→20:53)
[2016-07-21] MEDS: Carvedilol 6.25 MG Tab PO SCH ×2 (08:43→20:52)
[2016-07-21] MEDS: Tolterodine 2 MG Tab PO SCH ×2 (08:44→21:01)
[2016-07-21] MEDS: Nicotine 21 MG/24 Hr Patch TOP SCH (08:45)
[2016-07-21] MEDS: Formoterol/Mometasone 100-5 MCG 8.8 GM Inhaler IH SCH ×2 (08:45→20:54)
[2016-07-21] MEDS: Gabapentin 300 MG Cap PO SCH ×3 (08:46→20:53)
[2016-07-21] MEDS: Lisinopril 5 MG Tab PO SCH (08:46)
[2016-07-21] MEDS: ARIPIPRAZOLE 10 MG PO SCH ×2 (08:47→20:54)
[2016-07-21] MEDS: FLUoxetine 10 MG Cap PO SCH (08:47)
[2016-07-21] MEDS: TICAGRELOR 90 MG PO SCH ×2 (08:48→20:54)
[2016-07-21] MEDS: Tiotropium Inhaler 18 MCG Inhalation Powder Cap Kit of 5 INH SCH (08:50)
[2016-07-21] MEDS: oxyCODONE 5 MG Tab PO PRN ×3 (08:51→18:54)
[2016-07-21] MEDS: Insulin Aspart 100 Units/ML 3 ML Pen SUBCUT SCH ×4 (09:07→21:02)
[2016-07-21] MEDS ORDERED: Insulin Detemir 100 Units/ML 3 ML Pen SUBCUT SCH (09:59)
[2016-07-21] MEDS ORDERED: Morphine 2 MG/ML Syringe IVPUSH PRN (10:47)
--- NOTE | 2016-07-21 11:11 | PN ---
DATE: 07/21/2016 SUBJECTIVE: Ms. Mercedez Puga is a 61-year-old female with medical history significant for hypertension, type 2 diabetes mellitus, hyperlipidemia, and chronic ulcer noted on the left lower extremity. She has become homeless at this time and got admitted with uncontrolled diabetes, and uncontrolled hypertension. For the last 24 hours, the patient denies any complaints of chest pain. No complaints of shortness of breath. No complaints of abdominal pain. No complaints of nausea, vomiting, or diarrhea. No acute events overnight REVIEW OF SYSTEMS: Cardiovascular, respiratory, gastrointestinal, neurology, constitutional were all evaluated. PHYSICAL EXAMINATION: Vital signs: Temperature of 98, pulse of 96, blood pressure 143/81, respiratory rate of 18, saturating at 98% on room air. General Appearance: The patient is well oriented to time, place, and person. Follows commands spontaneously. Cardiovascular System: S1, S2 heard with normal intensity. No gallops. Respiratory: Clear to auscultation bilaterally. No wheeze. No crepitations. Abdomen: Soft. Bowel sounds positive. Nontender. No rigidity. Extremities: No edema in bilateral lower extremity. A large irregular border healing ulcer noted on the left leg on the lateral aspect. Red bed noted, no active secretions noted. Small ulcer noted on the lower part at 5 o'clock position of the wound. Neurology: No gross focal neurological deficits. MEDICATIONS: Reviewed. Continue with: 1. Tylenol 650 every 4 hours as needed. 2. Aspirin 81 mg daily. 3. Bumex 2 mg oral twice a day. 4. Coreg 12.5 mg twice a day. 5. Prozac 20 mg daily. 6. Neurontin 300 mg 3 times a day. 7. Heparin 5000 subcutaneous every 8 hourly. 8. Levemir 22 units subcutaneous at bedtime. 9. Lisinopril 2.5 mg daily. 10.Protonix 40 mg daily. 11.Spiriva 18 mcg inhalation daily. 12.Detrol 2 mg oral twice a day. 13.Oxycodone 5 mg every 4 hours as needed. LABORATORY DATA: Reviewed. The patient's blood sugar this morning is at 66. ASSESSMENT: 1. Hypertension. 2. Type 2 diabetes mellitus. 3. Hyperlipidemia. 4. Chronic ulcer noted on the left lower extremity. 5. Noncompliance with medical treatment plan. 6. Homelessness. PLAN: 1. Hypertension. The patient was noted to have uncontrolled hypertension at the time of admission. She started back on the Coreg and lisinopril after which her blood pressure seems to be in acceptable range. We will further dose adjust the medications as needed. Could possibly increase her lisinopril dose to 5 mg to better control the blood pressure. 2. Type 2 diabetes mellitus, uncontrolled. The patient was noted to have elevated blood sugars. She is started back on the Levemir. She is noted to have lower blood sugar at 66. We will cut down on the dose of Levemir. Check her fingersticks with each meals, have her on supplemental scale insulin as needed for additional coverage of her blood glucose. Closely follow. 3. Homelessness. The patient has been homeless, and her home does not have any power supply or water supply. counter supply worker consulted and community social worker clinical is making arrangements to get back the water and the power to the home and clean the home, and she will be discharged back home when it is ready with home health care. 4. Ulcer. The patient is noted to have wound noted on the left lower extremity. She has been following with Plastic Surgery at [facility]. She is encouraged to follow with appointment as scheduled, and do daily dressings for now. 5. DVT prophylaxis. Continue with heparin for DVT prophylaxis. 6. Discussed with Dr. Wheeler regarding the plan of care. [facility] /[id number]
[2016-07-21] MEDS: Simvastatin 40 MG Tab PO SCH (21:01)
[2016-07-22] MEDS: Heparin Sodium 5,000 Units/ML Vial SUBCUT SCH ×2 (05:56→16:00)
[2016-07-22] MEDS: Insulin Aspart 100 Units/ML 3 ML Pen SUBCUT SCH ×2 (07:57→16:00)
[2016-07-22] MEDS: Tolterodine 2 MG Tab PO SCH (08:38)
[2016-07-22] MEDS: Aspirin 81 MG Tab.Chew PO SCH (08:38)
[2016-07-22] MEDS: Bumetanide 1 MG Tab PO SCH (08:38)
[2016-07-22] MEDS: FLUoxetine 10 MG Cap PO SCH (08:39)
[2016-07-22] MEDS: Lisinopril 5 MG Tab PO SCH (08:39)
[2016-07-22] MEDS: oxyCODONE 5 MG Tab PO PRN (08:40)
[2016-07-22] MEDS: Carvedilol 6.25 MG Tab PO SCH (08:42)
[2016-07-22] MEDS: Gabapentin 300 MG Cap PO SCH ×2 (08:42→16:02)
[2016-07-22] MEDS: Nicotine 21 MG/24 Hr Patch TOP SCH (08:43)
[2016-07-22] MEDS: TICAGRELOR 90 MG PO SCH (08:43)
[2016-07-22] MEDS: ARIPIPRAZOLE 10 MG PO SCH (08:45)
[2016-07-22] MEDS: Formoterol/Mometasone 100-5 MCG 8.8 GM Inhaler IH SCH (08:46)
[2016-07-22] MEDS: Tiotropium Inhaler 18 MCG Inhalation Powder Cap Kit of 5 INH SCH (08:47)
[2016-07-22 11:16] VITALS: BP 159/75
--- NOTE | 2016-07-22 15:18 | DISCH ---
ADMITTING DIAGNOSES: 1. Uncontrolled hypertension. 2. Uncontrolled diabetes. 3. Noncompliance with medications. 4. Homelessness. DISCHARGE DIAGNOSES: 1. Uncontrolled diabetes, improved. 2. Uncontrolled hypertension, improved. 3. Surgical wound on the left lower extremity needing further evaluation and treatment by Plastic Surgery, so being discharged to [facility] for further evaluation by Plastic Surgery over there. HISTORY OF PRESENTING ILLNESS: Ms. Edd Britton is a 61-year-old female with medical history significant for hypertension, type 2 diabetes mellitus, hyperlipidemia, who was admitted to the hospital with uncontrolled hypertension, uncontrolled diabetes, and was noted to have surgical wound on the left lower extremity. The patient is homeless and is not taking care of herself, so there is delayed healing of the surgical wound, and she is also noted to have small ulcer on the surgical wound. The patient was admitted to the hospital and was started back on oral antihypertensive medications and insulin regimen after which her blood sugars and blood pressures are much improved. She continued to have the surgical wound. Discussed in detail with Plastic Surgery, Dr. Castro at [facility], who has actually scheduled her on Monday for possible skin grafting, so he recommended that the patient be discharged to [facility] at this time, and then he is going to reevaluate the patient, and then possibly do skin grafting while at [facility]. She remained hemodynamically stable on this admission. She is discharged to [facility] in stable condition. One of the community social media project manager is going to [facility] and is giving a ride to the patient to [facility]. DISCHARGE MEDICATIONS: Include: 1. Arpizol 10 mg twice a day. 2. Albuterol 1 puff inhalation every 6 hours as needed. 3. DuoNeb as directed. 4. Aspirin 81 mg daily. 5. Bumetanide 2 mg twice a day. 6. Coreg 12.5 mg twice a day. 7. Ergocalciferol 5000 units every 7 days. 8. Prozac 20 mg daily. 9. Neurontin 300 mg three times daily. 10.Levemir 30 units at bedtime. 11.Lisinopril 2.5 mg daily. 12.Metolazone 5 mg every 72 hours. 13.Dulera 1 puff inhalation twice daily. 14.Nicotine 21 mg daily patch. 15.Protonix 40 mg daily. 16.Simvastatin 20 mg at bedtime. 17.Ticagrelor 90 mg twice a day. 18.Spiriva 18 mcg inhalation daily. 19.Detrol 2 mg twice daily. PHYSICAL EXAMINATION: Vital Signs: On the day of discharge vitals; temperature of 98.4, pulse of 81, blood pressure 132/59, respiratory rate of 20, saturating at 97% on room air. General Appearance: The patient is well oriented to time, place, and person. Follows commands spontaneously. Cardiovascular System: S1 and S2 heard with normal intensity. No gallops. Respiratory System: Clear to auscultation bilaterally. No wheeze. No crepitations. Abdomen: Soft. Bowel sounds positive. Nontender. No rigidity. Extremities: No edema in bilateral lower extremity. Huge surgical wound noted on the lateral aspect of the left lower extremity on the leg, irregular margins noted, and tunneled ulcer noted in the middle of the wound. No active discharge noted at this time. Neurology: No gross focal neurological deficits. CONDITION ON ADMISSION: Poor. CONDITION ON DISCHARGE: Stable. DISPOSITION: Discharged to [facility] for further cares on the surgical wound with possible skin grafting over there. DIET: Cardiac healthy diet, and consistent carbohydrate diet. ACTIVITY: As tolerated. FOLLOWUP: Follow with primary care physician upon discharge from [facility]. Spent over 35 minutes of time in evaluating and treating this patient and making discharge plans and coordination of cares. [facility] /[id number]
== END 2016-07-22 10:40 | disposition critical access hospital (66) ==
LOC: DL.ED 15:29 → DL.MS 18:27
PROVIDERS: ADMIT Internal Medicine; ATTEND Internal Medicine
DX: E11.9 Type 2 diabetes mellitus without complications (principal); I10 Essential (primary) hypertension; Z59.0 Homelessness; J44.9 Chronic obstructive pulmonary disease, unspecified; E78.00 Pure hypercholesterolemia, unspecified; I50.9 Heart failure, unspecified; S81.802D Unspecified open wound, left lower leg, subsequent encounter; K21.9 Gastro-esophageal reflux disease without esophagitis; Z79.4 Long term (current) use of insulin; Z79.82 Long term (current) use of aspirin; Z79.899 Other long term (current) drug therapy; Z88.8 Allergy status to other drugs, medicaments and biological substances; Z90.710 Acquired absence of both cervix and uterus; Z95.5 Presence of coronary angioplasty implant and graft; Z98.890 Other specified postprocedural states; Z72.0 Tobacco use
CPT/HCPCS: 36415; 80053; 82962; 85025; 99284; A9270; J1644; J1815; J2270; J7050; 96372; 96374; G0378

== ENCOUNTER 2016-08-01 11:47 | Observation (INO) | payer MEDICAID ==
--- NOTE | 2016-08-01 12:04 | EDM.PDOC ---
ED HPI GENERAL MEDICAL PROBLEM - General Chief Complaint: Syncope Stated Complaint: IN BY AMBULANCE Time Seen by Provider: 08/01/16 12:03 Source of Information: Reports: Patient, EMS, Old Records, RN, RN Notes Reviewed History Limitations: Reports: No Limitations - History of Present Illness INITIAL COMMENTS - FREE TEXT/NARRATIVE: Arrives by ambulance from [facility] where pt has been staying since d/c from [facility] 3 days ago on July 29. Pt has lost her home at [place] and [facility] will not give her a new one, so she is now homeless. Today she stood to answer the door and had a syncopal event. Denies injury, chest pain , N/V, palpitations, edema, or headache. She was admitted here at [facility] on 07/19/16 with uncontrolled hypertension. She states she is now taking all of her medications as prescribed. EMS found pt to have sBP in 80s on scene at the [facility]. Onset: Today Severity: Severe Improves with: Reports: None Worsens with: Reports: Other (standing) Associated Symptoms: Reports: No Other Symptoms - Related Data Allergies Allergy/AdvReac Type Severity Reaction Status Date / Time capsaicin Allergy UNKNOWN Verified 07/19/16 15:49 codeine Allergy Nausea and Verified 07/19/16 15:49 Vomiting ibuprofen Allergy Itching Verified 07/19/16 15:49 pregabalin Allergy CONTACT Verified 07/19/16 15:49 DERMATITIS ALLERGY Home Meds: Home Meds ARIPiprazole [Aripiprazole] 10 mg PO BID 07/19/16 [History] Albuterol Sulfate [Ventolin Hfa] 1 puff IH Q6H PRN 07/19/16 [History] Albuterol/Ipratropium [DuoNeb 3.0-0.5 MG/3 ML] 1 mg PO ASDIRECTED 07/19/16 [ History] Aspirin 81 mg PO BRK 07/19/16 [History] Bumetanide 2 mg PO BID 07/19/16 [History] Carvedilol 12.5 mg PO BID 07/19/16 [History] Ergocalciferol (Vitamin D2) [Vitamin D2] 50,000 units PO Q7D 07/19/16 [History] FLUoxetine HCl [Prozac] 20 mg PO DAILY 07/19/16 [History] Gabapentin [Neurontin] 300 mg PO TID 07/19/16 [History] Insulin Detemir [Levemir] 30 unit SUBCUT BEDTIME 07/19/16 [History] Lisinopril 2.5 mg PO DAILY 07/19/16 [History] Metolazone 5 mg PO Q72H 07/19/16 [History] Mometasone/Formoterol [Dulera 100-5 MCG] 1 puff IN BID 07/19/16 [History] Nicotine [Nicotine Patch] 21 mg TOP DAILY 07/19/16 [History] Pantoprazole [ProTONIX] 40 mg PO ONETIME 07/19/16 [History] Simvastatin [Zocor] 20 mg PO BEDTIME 07/19/16 [History] Ticagrelor [Brilinta] 90 mg PO BID 07/19/16 [History] Tiotropium [Spiriva HandiHaler] 18 mcg IN DAILY 07/19/16 [History] Tolterodine [Detrol] 2 mg PO BID 07/19/16 [History] Past Medical History HEENT History: Reports: Glaucoma, Impaired Vision Other HEENT History: 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 Cardiovascular History: Reports: High Cholesterol, Hypertension, [place], Stents Respiratory History: Reports: Asthma, COPD, SOB Gastrointestinal History: Reports: Gastritis, GERD, Hemorrhoids Genitourinary History: Reports: None, Urinary Incontinence RN MEDICAL SURGICAL History: Reports: 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, Other (See Below) Other OB/BYN History: hysterectomy Musculoskeletal History: Reports: Arthritis, Back Pain, Chronic, Fibromyalgia Neurological History: Reports: None, Migraines Other Neuro History: hx of migraines; states she doesn't get them anymore Psychiatric History: Reports: None Endocrine/Metabolic History: Reports: Diabetes, Type II Hematologic History: Reports: None Immunologic History: Reports: None Oncologic (Cancer) History: Reports: None Dermatologic History: Reports: Cellulitis, Other (See Below) Other Dermatologic History: poor circulation in legs - Infectious Disease History Infectious Disease History: Reports: None - Past Surgical History Head Surgeries/Procedures: Reports: None HEENT Surgical History: Reports: Cataract Surgery, Eye Surgery, Laser Surgery Cardiovascular Surgical History: Reports: Coronary Artery Stent GI Surgical History: Reports: None Neurological Surgical History: Reports: None Social & Family History - Family History Family Medical History: Noncontributory HEENT: Reports: None Cardiac: Reports: None Respiratory: Reports: None GI: Reports: None OBGYN: Reports: None Musculoskeletal: Reports: Fibromyalgia Other Musculoskeletal Family History: cousin Neurological: Reports: None Psychiatric: Reports: None Oncologic: Reports: Breast Other Oncologic Family History: Aunt had breast cancer - Tobacco Use Smoking Status *Q: Light Tobacco Smoker Years of Tobacco use: 35 Packs/Tins Daily: 0.2 Used Tobacco, but Quit: No Month Tobacco Last Used: mar Second Hand Smoke Exposure: Yes - Caffeine Use Caffeine Use: Reports: Coffee Caffeine Use Comment: 4 cups in morning and 1 in the evening - Alcohol Use Days Per Week of Alcohol Use: 0 - Recreational Drug Use Recreational Drug Use: No Recreational Drug Type: Reports: Marijuana/Hashish Recreational Drug Use Frequency: Socially - Living Situation & Occupation Living situation: Reports: Other (homeless) Occupation: Unemployed ED ROS GENERAL - Review of Systems Review Of Systems: See Below Constitutional: Reports: Weakness, Fatigue. Denies: Fever, Chills HEENT: Reports: No Symptoms Respiratory: Reports: Shortness of Breath (chronic) Cardiovascular: Reports: Blood Pressure Problem, Dyspnea on Exertion, Syncope. Denies: Chest Pain, Edema, Lightheadedness, Orthopnea, Palpitations Endocrine: Reports: High Glucose (chronic) GI/Abdominal: Reports: No Symptoms : Reports: No Symptoms Musculoskeletal: Reports: No Symptoms Skin: Reports: Wound (chronic leg wound) Neurological: Reports: No Symptoms Psychiatric: Reports: No Symptoms Hematologic/Lymphatic: Reports: No Symptoms Immunologic: Reports: No Symptoms ED EXAM, GENERAL - Physical Exam Exam: See Below Exam Limited By: No Limitations General Appearance: Alert, No Apparent Distress, Other (chronically ill appearing) Ears: Normal External Exam Nose: Normal Inspection Throat/Mouth: Normal Inspection, Normal Lips, Normal Voice, No Airway Compromise Head: Atraumatic, Normocephalic Neck: Normal Inspection Respiratory/Chest: No Respiratory Distress, Lungs Clear, No Accessory Muscle Use , Decreased Breath Sounds Cardiovascular: Normal Peripheral Pulses, Regular Rate, Rhythm, No Edema GI/Abdominal: Normal Bowel Sounds, Soft, Non-Tender, No Distention, No Abnormal Bruit (Female) Exam: Deferred Rectal (Female) Exam: Deferred Back Exam: Normal Inspection. No: CVA Tenderness (L), CVA Tenderness (R) Extremities: Normal Range of Motion, Non-Tender, No Pedal Edema Neurological: Alert, Oriented, CN II-XII Intact, Normal Cognition, No Motor/ Sensory Deficits Psychiatric: Depressed Mood, Flat Affect Skin Exam: Warm, Dry, Other (wound lower ext. dressing not removed for exam) EKG INTERPRETATION EKG Date: 08/01/16 Time: 12:25 Rhythm: other (SR) Rate (beats/min): 69 [place]: normal P-wave: present QRS: other (LVH w/secondary repol. abnormality) ST-T: depressed (lateral) QT: normal Comparison: change from previous EKG Course - Vital Signs Last Recorded V/S: Last Vital Signs Temp 36.9 C 08/01/16 11:50 Pulse 68 08/01/16 11:50 Resp 18 08/01/16 11:50 BP 88/63 L 08/01/16 11:50 Pulse Ox 99 08/01/16 11:50 - Orders/Labs/Meds Orders: Active Orders 24 hr Category Date Time Status EKG 12 Lead [EKG Documentation Completion] [RC] STAT Care 08/01/16 12:13 Active Peripheral IV Care [RC] . DIRECTED Care 08/01/16 12:14 Active Sodium Chloride 0.9% [Saline Flush] Med 08/01/16 12:13 Active 10 ml FLUSH ASDIRECTED PRN Peripheral IV Insertion Adult [OM.PC] Stat Oth 08/01/16 12:13 Ordered Medication Orders Sodium Chloride (Saline Flush) 10 ml FLUSH ASDIRECTED PRN PRN Reason: Keep Vein Open Last Admin: 08/01/16 12:54 Dose: 10 ml Labs: Laboratory Tests 08/01/16 08/01/16 08/01/16 Range/Units 12:23 12:23 12:38 WBC 9.6 (5.0-10.0) 10^3/uL RBC 3.58 L (4.2-5.4) 10^6/uL Hgb 10.8 L (12.0-16.0) g/dL Hct 33.0 L (37.0-47.0) % MCV 92.2 (80-100) fL MCH 30.2 (27.0-34.0) pg MCHC 32.7 L (33.0-35.0) g/dL Plt Count 440 (150-450) 10^3/uL Neut % (Auto) 85.0 H (42.2-75.2) % Lymph % (Auto) 9.6 L (20.5-50.1) % [place] % (Auto) 4.3 (2-8) % Eos % (Auto) 0.7 L (1.0-3.0) % Baso % (Auto) 0.4 (0.0-1.0) % Sodium 135 (135-145) mmol/L Potassium 4.8 (3.6-5.0) mmol/L Chloride 98 L (101-111) mmol/L Carbon Dioxide 24.0 (21.0-31.0) mmol/L Anion Gap 17.8 BUN 75 H (7-18) mg/dL Creatinine 2.2 H (0.6-1.3) mg/dL Est Cr Clr Drug Dosing 22.78 mL/min Estimated GFR (MDRD) 23 BUN/Creatinine Ratio 34.09 Glucose 252 H (74-105) mg/dL Calcium 9.2 (8.4-10.2) mg/dl Total Bilirubin 0.5 (0.2-1.0) mg/dL AST 34 (10-42) IU/L ALT 35 (10-60) IU/L Alkaline Phosphatase 107 (42-121) IU/L Troponin I 0.04 H* (0.00-0.02) ng/ml B-Natriuretic Peptide 1150 H (0-100) pg/ml Total Protein 6.9 (6.7-8.2) g/dl Albumin 2.8 L (3.2-5.5) g/dl Globulin 4.1 Albumin/Globulin Ratio 0.68 Urine Color (YELLOW) Urine Appearance (CLEAR) Urine pH (5.0-9.0) Ur Specific [place] (1.005-1.030) Urine Protein (NEGATIVE) Urine Glucose (UA) (NEGATIVE) Urine Ketones (NEGATIVE) Urine Occult Blood (NEGATIVE) Urine Nitrite (NEGATIVE) Urine Bilirubin (NEGATIVE) Urine Urobilinogen (0.2-1.0) mg/dL Ur Leukocyte Esterase (NEGATIVE) Urine RBC /HPF Urine WBC (0-5/HPF) /HPF Ur Epithelial Cells /HPF Urine Bacteria (0-FEW/HPF) /HPF Urine Opiates Screen Negative (NEGATIVE) Ur Oxycodone Screen Negative (NEGATIVE) Urine Methadone Screen Negative (NEGATIVE) Ur Barbiturates Screen Negative (NEGATIVE) U Tricyclic Antidepress Negative (NEGATIVE) Ur Phencyclidine Scrn Negative (NEGATIVE) Ur Amphetamine Screen Negative (NEGATIVE) U Methamphetamines Scrn Negative (NEGATIVE) Urine MDMA Screen Negative (NEGATIVE) U Benzodiazepines Scrn Negative (NEGATIVE) Urine Cocaine Screen Negative (NEGATIVE) U Marijuana (THC) Screen Negative (NEGATIVE) 08/01/16 Range/Units 12:38 WBC (5.0-10.0) 10^3/uL RBC (4.2-5.4) 10^6/uL Hgb (12.0-16.0) g/dL Hct (37.0-47.0) % MCV (80-100) fL MCH (27.0-34.0) pg MCHC (33.0-35.0) g/dL Plt Count (150-450) 10^3/uL Neut % (Auto) (42.2-75.2) % Lymph % (Auto) (20.5-50.1) % [place] % (Auto) (2-8) % Eos % (Auto) (1.0-3.0) % Baso % (Auto) (0.0-1.0) % Sodium (135-145) mmol/L Potassium (3.6-5.0) mmol/L Chloride (101-111) mmol/L Carbon Dioxide (21.0-31.0) mmol/L Anion Gap BUN (7-18) mg/dL Creatinine (0.6-1.3) mg/dL Est Cr Clr Drug Dosing mL/min Estimated GFR (MDRD) BUN/Creatinine Ratio Glucose (74-105) mg/dL Calcium (8.4-10.2) mg/dl Total Bilirubin (0.2-1.0) mg/dL AST (10-42) IU/L ALT (10-60) IU/L Alkaline Phosphatase (42-121) IU/L Troponin I (0.00-0.02) ng/ml B-Natriuretic Peptide (0-100) pg/ml Total Protein (6.7-8.2) g/dl Albumin (3.2-5.5) g/dl Globulin Albumin/Globulin Ratio Urine Color Yellow (YELLOW) Urine Appearance Cloudy (CLEAR) Urine pH 6.5 (5.0-9.0) Ur Specific [place] 1.020 (1.005-1.030) Urine Protein >=300 H (NEGATIVE) Urine Glucose (UA) 100 H (NEGATIVE) Urine Ketones Negative (NEGATIVE) Urine Occult Blood Trace-intact H (NEGATIVE) Urine Nitrite Negative (NEGATIVE) Urine Bilirubin Negative (NEGATIVE) Urine Urobilinogen 0.2 (0.2-1.0) mg/dL Ur Leukocyte Esterase Negative (NEGATIVE) Urine RBC 5-10 H /HPF Urine WBC 0-5 (0-5/HPF) /HPF Ur Epithelial Cells Moderate H /HPF Urine Bacteria Moderate H (0-FEW/HPF) /HPF Urine Opiates Screen (NEGATIVE) Ur Oxycodone Screen (NEGATIVE) Urine Methadone Screen (NEGATIVE) Ur Barbiturates Screen (NEGATIVE) U Tricyclic Antidepress (NEGATIVE) Ur Phencyclidine Scrn (NEGATIVE) Ur Amphetamine Screen (NEGATIVE) U Methamphetamines Scrn (NEGATIVE) Urine MDMA Screen (NEGATIVE) U Benzodiazepines Scrn (NEGATIVE) Urine Cocaine Screen (NEGATIVE) U Marijuana (THC) Screen (NEGATIVE) Meds: Medications Generic Name Dose Route Start Last Admin Trade Name Freq PRN Reason Stop Dose Admin Sodium Chloride 10 ml 08/01/16 12:13 08/01/16 12:54 Saline Flush FLUSH 10 ml ASDIRECTED PRN Administration Keep Vein Open - Radiology Interpretation Free Text/Narrative:: CXR: no acute process per Rad. report. - Re-Assessments/Exams Free Text/Narrative Re-Assessment/Exam: 08/01/16 13:59 Pt hypotensive with syncope x1 and slight elevation in troponin. Plan to admit pt here to Dr. Villagomez for further evaluation. Departure - Departure Time of Disposition: 13:45 (admit to Dr. Villagomez) Disposition: Admitted As Inpatient 68 Condition: serious Clinical Impression: Elevated troponin, Homeless single person Syncope Qualifiers: Syncope type: unspecified Qualified Code(s): R55 - Syncope and collapse Hypotension Qualifiers: Hypotension type: hypotension due to drug Qualified Code(s): I95.2 - Hypotension due to drugs Forms: ED Department Discharge - My Orders Last 24 Hours: My Active Orders 08/01/16 12:13 EKG 12 Lead [EKG Documentation Completion] [RC] STAT Sodium Chloride 0.9% [Saline Flush] 10 ml FLUSH ASDIRECTED PRN Peripheral IV Insertion Adult [OM.PC] Stat 08/01/16 12:14 Peripheral IV Care [RC] . DIRECTED - Assessment/Plan Last 24 Hours: My Active Orders 08/01/16 12:13 EKG 12 Lead [EKG Documentation Completion] [RC] STAT Sodium Chloride 0.9% [Saline Flush] 10 ml FLUSH ASDIRECTED PRN Peripheral IV Insertion Adult [OM.PC] Stat 08/01/16 12:14 Peripheral IV Care [RC] . DIRECTED
[2016-08-01] MEDS: Sodium Chloride 0.9% 10 ML Syringe FLUSH PRN (12:54)
--- NOTE | 2016-08-01 13:36 | CR ---
Clinical history: 61-year-old female chest pain Interpretation: AP portable chest 61-year-old female with chest pain and shortness of breath Interpretation: Negative exam. No acute new cardiopulmonary abnormality. *Decided improvement in the pulmonary venous congestive pa ttern/small effusions demonstrated on 08 Jul 2016 exam. Normal cardiac silhouette without alveolar edema or dependent effusion. No new lung mass hilar lymphadenopathy or focal lobar infiltrate. No atelectasis/collapse. No pneumo thorax.
[2016-08-01] MEDS ORDERED: Albuterol 6.7 GM Inhaler INH PRN (15:50)
[2016-08-01] MEDS ORDERED: Zolpidem 5 MG Tab PO PRN (16:09)
[2016-08-01] MEDS ORDERED: Sodium Chloride 0.9% 10 ML Syringe FLUSH PRN (16:09)
--- NOTE | 2016-08-01 16:20 | PCM.HP ---
H&P History of Present Illness - General Date of Service: 08/01/16 Admit Problem/Dx: Admission Diagnosis/Problem Admission Diagnosis/Problem Syncope Source of Information: Patient, Provider (er) - History of Present Illness Initial Comments - Free Text/Narative: The patient had a syncopal episode after she was getting up from bed. She does not remember chest pain palpitation, lightheadedness. When the paramedics arrived blood pressure was low in the 80s. This was witnessed by the home care nurse. No apparent seizure. Now she is feeling just hungry. Associated Symptoms: Denies: Confusion, Chest Pain, Cough Left Leg Pain Score (Numeric/FACES): 9 - Related Data Allergies/Adverse Reactions: Allergies Allergy/AdvReac Type Severity Reaction Status Date / Time capsaicin Allergy UNKNOWN Verified 08/01/16 14:34 codeine Allergy Nausea and Verified 08/01/16 14:34 Vomiting ibuprofen Allergy Itching Verified 08/01/16 14:34 pregabalin Allergy CONTACT Verified 08/01/16 14:34 DERMATITIS ALLERGY Home Medications: Home Meds ARIPiprazole [Aripiprazole] 10 mg PO BID 07/19/16 [History] Albuterol Sulfate [Ventolin Hfa] 1 puff IH Q6H PRN 07/19/16 [History] Albuterol/Ipratropium [DuoNeb 3.0-0.5 MG/3 ML] 1 mg PO ASDIRECTED 07/19/16 [ History] Aspirin 81 mg PO BRK 07/19/16 [History] Bumetanide 2 mg PO BID 07/19/16 [History] Carvedilol 12.5 mg PO BID 07/19/16 [History] Ergocalciferol (Vitamin D2) [Vitamin D2] 50,000 units PO Q7D 07/19/16 [History] FLUoxetine HCl [Prozac] 20 mg PO DAILY 07/19/16 [History] Gabapentin [Neurontin] 300 mg PO TID 07/19/16 [History] Insulin Detemir [Levemir] 30 unit SUBCUT BEDTIME 07/19/16 [History] Lisinopril 2.5 mg PO DAILY 07/19/16 [History] Metolazone 5 mg PO Q72H 07/19/16 [History] Mometasone/Formoterol [Dulera 100-5 MCG] 1 puff IN BID 07/19/16 [History] Nicotine [Nicotine Patch] 21 mg TOP DAILY 07/19/16 [History] Simvastatin [Zocor] 20 mg PO BEDTIME 07/19/16 [History] Ticagrelor [Brilinta] 90 mg PO BID 07/19/16 [History] Tiotropium [Spiriva HandiHaler] 18 mcg IN DAILY 07/19/16 [History] Tolterodine [Detrol] 2 mg PO BID 07/19/16 [History] Past Medical History HEENT History: Reports: Glaucoma, Impaired Vision Other HEENT History: 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 Cardiovascular History: Reports: High Cholesterol, Hypertension, VA, Stents Respiratory History: Reports: Asthma, COPD, SOB Gastrointestinal History: Reports: Gastritis, GERD, Hemorrhoids Genitourinary History: Reports: None [employer]ER History: Reports: 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, Other (See Below) Other OB/BYN History: hysterectomy Musculoskeletal History: Reports: Arthritis, Back Pain, Chronic, Fibromyalgia Neurological History: Reports: Migraines Other Neuro History: hx of migraines; states she doesn't get them anymore Psychiatric History: Reports: None Endocrine/Metabolic History: Reports: Diabetes, Type II Hematologic History: Reports: None Immunologic History: Reports: None Oncologic (Cancer) History: Reports: None Dermatologic History: Reports: Cellulitis, Other (See Below) Other Dermatologic History: poor circulation in legs - Infectious Disease History Infectious Disease History: Reports: None - Past Surgical History Head Surgeries/Procedures: Reports: None HEENT Surgical History: Reports: Cataract Surgery, Eye Surgery, Laser Surgery Cardiovascular Surgical History: Reports: Coronary Artery Stent GI Surgical History: Reports: None Neurological Surgical History: Reports: None Social & Family History - Family History Family Medical History: Noncontributory HEENT: Reports: None Cardiac: Reports: None Respiratory: Reports: None GI: Reports: None OBGYN: Reports: None Musculoskeletal: Reports: Fibromyalgia Other Musculoskeletal Family History: cousin Neurological: Reports: None Psychiatric: Reports: None Oncologic: Reports: Breast Other Oncologic Family History: Aunt had breast cancer - Tobacco Use Smoking Status *Q: Former Smoker Years of Tobacco use: 35 Packs/Tins Daily: 0.2 Used Tobacco, but Quit: No Month Tobacco Last Used: mar Second Hand Smoke Exposure: Yes - Caffeine Use Caffeine Use: Reports: Coffee Caffeine Use Comment: 4 cups in morning and 1 in the evening - Alcohol Use Days Per Week of Alcohol Use: 0 - Recreational Drug Use Recreational Drug Use: No Recreational Drug Type: Reports: Marijuana/Hashish Recreational Drug Use Frequency: Socially - Living Situation & Occupation Living situation: Reports: Other (homeless) Occupation: Unemployed H&P Review of Systems - Review of Systems: Review Of Systems: See Below General: Denies: Fever Pulmonary: Denies: Shortness of Breath Cardiovascular: Denies: Chest Pain Gastrointestinal: Denies: Abdominal Pain Neurological: Denies: Confusion Exam - Exam Exam: See Below - Vital Signs Vital Signs: Last Vital Signs Temp 36.5 C 08/01/16 14:16 Pulse 69 08/01/16 14:16 Resp 20 08/01/16 14:16 BP 103/62 08/01/16 14:16 Pulse Ox 98 08/01/16 14:16 Weight: 54.068 kg - Exam Quality Assessment: No: Supplemental Oxygen General: Alert, Oriented HEENT: Other (left corneal hazyness) Lungs: Clear to Auscultation Cardiovascular: Regular Rate, Regular Rhythm Abdomen: Normal Bowel Sounds, Soft Extremities: No: Edema Skin: Other (left leg Upper and lower areas of skin donor and recipient site with drainage) Neuro Extensive - Mental Status: Alert, Oriented x3, Normal Mood/Affect, Normal Cognition Psychiatric: Alert, Normal Affect, Normal Mood - Patient Data Result Diagrams: 08/01/16 12:23 08/01/16 12:23 *Q Meaningful Use (ADM) - VTE *Q VTE Criteria *Q: - Stroke *Q Stroke Criteria *Q: - AMI *Q AMI Criteria *Q: - Problem List (1) Hypotension SNOMED Code(s): 75579085 ICD Code: I95.9 - HYPOTENSION, UNSPECIFIED Status: Acute Current Visit: Yes Qualifiers: Hypotension type: hypotension due to drug Qualified Code(s): I95.2 - Hypotension due to drugs (2) Syncope SNOMED Code(s): 043839535 ICD Code: R55 - SYNCOPE AND COLLAPSE Status: Acute Current Visit: Yes Qualifiers: Syncope type: unspecified Qualified Code(s): R55 - Syncope and collapse (3) COPD (chronic obstructive pulmonary disease) SNOMED Code(s): 91369870 ICD Code: J44.9 - CHRONIC OBSTRUCTIVE PULMONARY DISEASE, UNSPECIFIED Status : Chronic Current Visit: No (4) Cardiomyopathy SNOMED Code(s): 17379090 ICD Code: I42.9 - CARDIOMYOPATHY, UNSPECIFIED Status: Chronic Current Visit: No (5) Tobacco abuse SNOMED Code(s): 366905444, 903504102 ICD Code: Z72.0 - TOBACCO USE Status: Chronic Current Visit: No Problem List Initiated/Reviewed/Updated: Yes Orders Last 24hrs: Active Orders 24 hr Category Date Time Status Patient Status [ADT] Routine ADT 08/01/16 16:09 Ordered Communication Order [RC] 09,21 Care 08/01/16 15:50 Active Glucose [Blood Glucose Check, Bedside] [RC] QIDACANDBED Care 08/01/16 16:13 Ordered Oxygen Therapy [RC] PRN Care 08/01/16 16:09 Ordered Telemetry Monitoring [Cardiac Monitoring] [RC] . Care 08/01/16 16:07 Ordered DIRECTED Up With Assistance [RC] ASDIRECTED Care 08/01/16 16:09 Ordered VTE/DVT Education [RC] PER UNIT ROUTINE Care 08/01/16 16:09 Ordered Vital Signs [RC] Q4H Care 08/01/16 16:09 Ordered PT Evaluation and Treatment [CONS] Routine Cons 08/01/16 16:09 Ordered Consistent Carbohydrate Diet [DIET] Diet 08/01/16 Dinner Ordered BASIC METABOLIC PANEL,BMP [CHEM] AM Lab 08/02/16 05:15 Ordered CBC WITH AUTO DIFF [HEME] AM Lab 08/02/16 05:15 Ordered TROPONIN I [CHEM] AM Lab 08/02/16 05:11 Ordered ARIPiprazole [Aripiprazole] Med 08/01/16 21:00 Ordered 10 mg PO BID Acetaminophen [Tylenol] Med 08/01/16 16:09 Ordered 650 mg PO Q4H PRN Albuterol [Proventil HFA] Med 08/01/16 15:50 Ordered 1 puff INH Q6H PRN Aspirin Med 08/01/16 16:00 Ordered 81 mg PO BRK Bumetanide [Bumetanide] Med 08/01/16 21:00 Ordered 2 mg PO BID Carvedilol [Coreg] Med 08/01/16 21:00 Ordered 12.5 mg PO BID FLUoxetine HCl [Prozac] Med 08/02/16 09:00 Ordered 20 mg PO DAILY Gabapentin [Neurontin] Med 08/01/16 21:00 Ordered 300 mg PO TID Heparin Sodium Med 08/01/16 22:00 Ordered 5,000 units SUBCUT Q8HR Insulin Detemir Med 08/01/16 21:00 Ordered 30 unit SUBCUT BEDTIME Lisinopril [Lisinopril] Med 08/02/16 09:00 Ordered 2.5 mg PO DAILY Mometasone/Formoterol [Dulera 100-5 MCG] Med 08/01/16 21:00 Ordered 1 puff IH BID Nicotine [Habitrol] Med 08/02/16 09:00 Ordered 21 mg TOP DAILY Simvastatin [Zocor] Med 08/01/16 21:00 Ordered 20 mg PO BEDTIME Sodium Chloride 0.9% [Saline Flush] Med 08/01/16 16:09 Ordered 10 ml FLUSH ASDIRECTED PRN Ticagrelor [Brilinta] Med 08/01/16 21:00 Ordered 90 mg PO BID Tiotropium [Spiriva HandiHaler] Med 08/02/16 09:00 Ordered 18 mcg INH DAILY Tolterodine [Detrol] Med 08/01/16 21:00 Ordered 2 mg PO BID Zolpidem [Ambien] Med 08/01/16 16:09 Ordered 5 mg PO BEDTIME PRN Saline Lock Insert [OM.PC] Routine Oth 08/01/16 16:09 Ordered Resuscitation Status Routine Resus Stat 08/01/16 16:09 Ordered Medication Orders Acetaminophen (Tylenol) 650 mg PO Q4H PRN PRN Reason: Pain (Mild 1-3)/fever Albuterol (Proventil Hfa) gm INH Q6H PRN PRN Reason: Wheezing Aspirin (Aspirin) 81 mg PO BRK [facility] Carvedilol (Coreg) 12.5 mg PO BID [facility] Gabapentin (Neurontin) 300 mg PO TID [facility] Heparin Sodium (Porcine) (Heparin Sodium) 5,000 units SUBCUT Q8HR [facility] Mometasone Furoate/Formoterol Fumar (Dulera 100-5 Mcg) 1 puff IH BID [facility] Nicotine (Habitrol) 21 mg TOP DAILY [facility] Non-Formulary Medication (Aripiprazole [Aripiprazole]) 10 mg PO BID [facility] Non-Formulary Medication (Bumetanide [Bumetanide]) 2 mg PO BID [facility] Non-Formulary Medication (Fluoxetine Hcl [Prozac]) 20 mg PO DAILY [facility] Non-Formulary Medication (Insulin Detemir) 30 unit SUBCUT BEDTIME [facility] Non-Formulary Medication (Lisinopril [Lisinopril]) 2.5 mg PO DAILY [facility] Non-Formulary Medication (Simvastatin [Zocor]) 20 mg PO BEDTIME [facility] Non-Formulary Medication (Ticagrelor [Brilinta]) 90 mg PO BID [facility] Sodium Chloride (Saline Flush) 10 ml FLUSH ASDIRECTED PRN PRN Reason: Keep Vein Open Last Admin: 08/01/16 12:54 Dose: 10 ml Sodium Chloride (Saline Flush) 10 ml FLUSH ASDIRECTED PRN PRN Reason: Keep Vein Open Tiotropium [place] (Spiriva Handihaler) 18 mcg INH DAILY [facility] Tolterodine Tartrate (Detrol) 2 mg PO BID [facility] Zolpidem Tartrate (Ambien) 5 mg PO BEDTIME PRN PRN Reason: Sleep Assessment/Plan Comment:: Ms. Mercedez Puga is a 61-year-old female with medical history of diabetes mellitus, peripheral artery disease, coronary artery disease, chronic obstructive pulmonary disease, and chronic hypoxemic respiratory failure. She also has hypertension and congestive heart failure, systolic dysfunction (ef 35 % 05/2016). Stress test although was of poor quality- showed no reversible defect on 05/2016. The patient is practically homeless, was staying at the local [facility]. Syncopal episode Likely orthostatic hypotension The patient was laying down and was watching TV. She got off and then had a syncopal episode. She was noted to have low blood pressure at side but blood pressure in the 80s She is on multiple blood pressure medications including Coreg, lisinopril, diuretics. The patient looks actually quite compensated. I would continue the current medications and monitor the patient Fall precautions. Monitor on telemetry. Recheck cardiac enzyme in the morning. Chronic systolic congestive heart failure with last ejection fraction around 35% Continue diuretics, Coreg Diabetes Use Levemir and short-acting insulin Follow blood sugars use supplemental insulin as needed. Recent skin graft Will do daily dressing change on the donor side. Abnormal urine analysis I believe this is likely contaminant. I do not think that this is a UTI. Hold off on antibiotics. Chronic kidney disease stage III Monitor electrolytes and renal function test with diuretics. Continue Lasix but hold on Zaroxolyn Chronic COPD No apparent exacerbation Continue Dulera and DuoNeb when necessary History of hypertension Now concerned about orthostatic hypotension will monitor vital signs Peripheral vascular disease. Continue aspirin, Brilinta Tobacco use disorder. Use a nicotine patch Coronary artery disease. She is status post previous coronary angiogram with stent placement. Continue aspirin, Brilinta, statin, ELZA inhibitor, beta elicia DVT prophylaxis will be with subcutaneous heparin
[2016-08-01] MEDS: Bumetanide 1 MG Tab PO SCH (17:34)
[2016-08-01] MEDS: Carvedilol 6.25 MG Tab PO SCH (17:34)
[2016-08-01] MEDS: Gabapentin 300 MG Cap PO SCH (22:23)
[2016-08-01] MEDS: Tolterodine 2 MG Tab PO SCH (22:23)
[2016-08-01] MEDS: Simvastatin 10 MG Tab PO SCH (22:24)
[2016-08-01] MEDS: Formoterol/Mometasone 100-5 MCG 8.8 GM Inhaler IH SCH (22:25)
[2016-08-01] MEDS: Heparin Sodium 5,000 Units/ML Vial SUBCUT SCH (22:26)
[2016-08-01] MEDS: Insulin Detemir 100 Units/ML 3 ML Pen SUBCUT SCH (22:26)
[2016-08-01] MEDS: Acetaminophen 325 MG Tab PO PRN (22:32)
[2016-08-02] MEDS: Heparin Sodium 5,000 Units/ML Vial SUBCUT SCH ×3 (05:46→21:16)
[2016-08-02] MEDS ORDERED: Nicotine 21 MG/24 Hr Patch TRDERM SCH (09:00)
[2016-08-02] MEDS ORDERED: Sodium Chloride 0.9% 500 ML IV SCH (09:15)
[2016-08-02] MEDS: Tolterodine 2 MG Tab PO SCH ×2 (10:00→20:45)
[2016-08-02] MEDS: Gabapentin 300 MG Cap PO SCH ×3 (10:00→20:45)
[2016-08-02] MEDS: Lisinopril 5 MG Tab PO SCH (10:01)
[2016-08-02] MEDS: Aspirin 81 MG Tab.Chew PO SCH (10:01)
[2016-08-02] MEDS: FLUoxetine 10 MG Cap PO SCH (10:02)
[2016-08-02] MEDS: Bumetanide 1 MG Tab PO SCH ×2 (10:02→14:59)
[2016-08-02] MEDS: Carvedilol 6.25 MG Tab PO SCH ×2 (10:03→20:05)
[2016-08-02] MEDS: Check NICOTINE Patch TRDERM SCH (10:04)
[2016-08-02] MEDS: Formoterol/Mometasone 100-5 MCG 8.8 GM Inhaler IH SCH ×2 (10:07→20:45)
[2016-08-02] MEDS: Tiotropium Inhaler 18 MCG Inhalation Powder Cap Kit of 5 INH SCH (10:14)
[2016-08-02] MEDS: Sodium Chloride 0.9% 10 ML Syringe FLUSH PRN ×2 (10:18→20:37)
--- NOTE | 2016-08-02 10:37 | PCM.PN ---
- General Info Date of Service: 08/02/16 Admission Dx/Problem (Free Text): Admission Diagnosis/Problem Admission Diagnosis/Problem Syncope Subjective Update: Since admission she has remained stable. No presyncopal symptoms. No chest pain , dizziness, palpitation. - Review of Systems General: Denies: Fever Pulmonary: Reports: cough (chronic). Denies: shortness of breath Cardiovascular: Denies: Chest Pain Gastrointestinal: Denies: Abdominal pain Neurological: Denies: Confusion, Dizziness, Headache, Tremors, Difficulty Walking, Weakness - Patient Data Vitals - most recent: Last Vital Signs Temp 36.7 C 08/02/16 08:14 Pulse 64 08/02/16 10:03 Resp 20 08/02/16 08:14 BP 112/59 L 08/02/16 10:03 Pulse Ox 100 08/02/16 08:14 Weight - most recent: 54.068 kg I&O - last 24 hours: Intake & Output 08/01/16 08/02/16 08/02/16 22:59 06:59 14:59 Intake Total 250 350 Balance 250 350 Lab Results last 24 hrs: Laboratory Results - last 24 hr 08/01/16 08/01/16 08/02/16 Range/Units 17:02 20:53 06:15 WBC 6.2 (5.0-10.0) 10^3/uL RBC 3.45 L (4.2-5.4) 10^6/uL Hgb 10.3 L (12.0-16.0) g/dL Hct 31.5 L (37.0-47.0) % MCV 91.3 (80-100) fL MCH 29.9 (27.0-34.0) pg MCHC 32.7 L (33.0-35.0) g/dL Plt Count 373 (150-450) 10^3/uL Neut % (Auto) 58.4 (42.2-75.2) % Lymph % (Auto) 26.4 (20.5-50.1) % Edgar % (Auto) 9.9 H (2-8) % Eos % (Auto) 4.0 H (1.0-3.0) % Baso % (Auto) 1.3 H (0.0-1.0) % Sodium (135-145) mmol/L Potassium (3.6-5.0) mmol/L Chloride (101-111) mmol/L Carbon Dioxide (21.0-31.0) mmol/L Anion Gap BUN (7-18) mg/dL Creatinine (0.6-1.3) mg/dL Est Cr Clr Drug Dosing mL/min Estimated GFR (MDRD) Glucose (74-105) mg/dL POC Glucose 156 H 265 H (70-105) mg/dl Calcium (8.4-10.2) mg/dl Troponin I (0.00-0.02) ng/ml 08/02/16 08/02/16 Range/Units 06:15 07:39 WBC (5.0-10.0) 10^3/uL RBC (4.2-5.4) 10^6/uL Hgb (12.0-16.0) g/dL Hct (37.0-47.0) % MCV (80-100) fL MCH (27.0-34.0) pg MCHC (33.0-35.0) g/dL Plt Count (150-450) 10^3/uL Neut % (Auto) (42.2-75.2) % Lymph % (Auto) (20.5-50.1) % Edgar % (Auto) (2-8) % Eos % (Auto) (1.0-3.0) % Baso % (Auto) (0.0-1.0) % Sodium 131 L (135-145) mmol/L Potassium 4.0 (3.6-5.0) mmol/L Chloride 97 L (101-111) mmol/L Carbon Dioxide 23.0 (21.0-31.0) mmol/L Anion Gap 15.0 BUN 81 H (7-18) mg/dL Creatinine 2.2 H (0.6-1.3) mg/dL Est Cr Clr Drug Dosing 22.78 mL/min Estimated GFR (MDRD) 23 Glucose 74 (74-105) mg/dL POC Glucose 70 (70-105) mg/dl Calcium 8.8 (8.4-10.2) mg/dl Troponin I 0.04 H* (0.00-0.02) ng/ml Med Orders - Current: Current Medications Acetaminophen (Tylenol) 650 mg PO Q4H PRN PRN Reason: Pain (Mild 1-3)/fever Last Admin: 08/01/16 22:32 Dose: 650 mg Albuterol (Proventil Hfa) 0 gm INH Q6H PRN PRN Reason: Wheezing Aspirin (Aspirin) 81 mg PO BRK [facility] Last Admin: 08/02/16 10:01 Dose: 81 mg Bumetanide (Bumex) 2 mg PO BIDDIURETIC [facility] Last Admin: 08/02/16 10:02 Dose: 2 mg Carvedilol (Coreg) 12.5 mg PO BIDMEALS [facility] Last Admin: 08/02/16 10:03 Dose: 12.5 mg Fluoxetine HCl (Prozac) 20 mg PO DAILY [facility] Last Admin: 08/02/16 10:02 Dose: 20 mg Gabapentin (Neurontin) 300 mg PO TID [facility] Last Admin: 08/02/16 10:00 Dose: 300 mg Heparin Sodium (Porcine) (Heparin Sodium) 5,000 units SUBCUT Q8HR [facility] Last Admin: 08/02/16 05:46 Dose: 5,000 units Sodium Chloride (Normal Saline) 500 mls @ 50 mls/hr IV ASDIRECTED [facility] Last Admin: 08/02/16 10:16 Dose: 50 mls/hr Insulin Detemir (Levemir) 30 unit SUBCUT BEDTIME [facility] Last Admin: 08/01/16 22:26 Dose: 30 units Lisinopril (Prinivil) 2.5 mg PO DAILY [facility] Last Admin: 08/02/16 10:01 Dose: 2.5 mg Miscellaneous Information (Check Patch) 1 ea TRDERM DAILY [facility] Last Admin: 08/02/16 10:04 Dose: Not Given Mometasone Furoate/Formoterol Fumar (Dulera 100-5 Mcg) 1 puff IH BID [facility] Last Admin: 08/02/16 10:07 Dose: 1 puff Nicotine (Habitrol) 21 mg TRDERM DAILY [facility] Last Admin: 08/02/16 10:04 Dose: 21 mg Non-Formulary Medication (Aripiprazole [Aripiprazole]) 10 mg PO BID [facility] Non-Formulary Medication (Ticagrelor [Brilinta]) 90 mg PO BID [facility] Simvastatin (Zocor) 20 mg PO BEDTIME [facility] Last Admin: 08/01/16 22:24 Dose: 20 mg Sodium Chloride (Saline Flush) 10 ml FLUSH ASDIRECTED PRN PRN Reason: Keep Vein Open Last Admin: 08/02/16 10:18 Dose: 10 ml Tiotropium [place] (Spiriva Handihaler) 18 mcg INH DAILY [facility] Last Admin: 08/02/16 10:14 Dose: 18 mcg Tolterodine Tartrate (Detrol) 2 mg PO BID [facility] Last Admin: 08/02/16 10:00 Dose: 2 mg Zolpidem Tartrate (Ambien) 5 mg PO BEDTIME PRN PRN Reason: Sleep Discontinued Medications Sodium Chloride (Saline Flush) 10 ml FLUSH ASDIRECTED PRN PRN Reason: Keep Vein Open - Exam General: alert, oriented HEENT: Other (left corneal hazyness) Lungs: Normal respiratory effort, Decreased breath sounds Cardiovascular: Regular Rate, Regular Rhythm Abdomen: bowel sounds present, soft, no tenderness, no distension Extremities: no edema Skin: warm, dry Neurological: no new focal deficit Psy/Mental Status: alert, normal affect, normal mood - Problem List & Annotations (1) Hypotension SNOMED Code(s): 28899377 Code(s): I95.9 - HYPOTENSION, UNSPECIFIED Status: Acute Current Visit: Yes Qualifiers: Hypotension type: hypotension due to drug Qualified Code(s): I95.2 - Hypotension due to drugs (2) Syncope SNOMED Code(s): 097132195 Code(s): R55 - SYNCOPE AND COLLAPSE Status: Acute Current Visit: Yes Qualifiers: Syncope type: unspecified Qualified Code(s): R55 - Syncope and collapse (3) COPD (chronic obstructive pulmonary disease) SNOMED Code(s): 38752045 Code(s): J44.9 - CHRONIC OBSTRUCTIVE PULMONARY DISEASE, UNSPECIFIED Status : Chronic Current Visit: No (4) Cardiomyopathy SNOMED Code(s): 35393442 Code(s): I42.9 - CARDIOMYOPATHY, UNSPECIFIED Status: Chronic Current Visit: No (5) Tobacco abuse SNOMED Code(s): 993845214, 027052253 Code(s): Z72.0 - TOBACCO USE Status: Chronic Current Visit: No - Problem List Review Problem List Initiated/Reviewed/Updated: No - My Orders Last 24 Hours: My Active Orders 08/01/16 16:13 Glucose [Blood Glucose Check, Bedside] [RC] QIDACANDBED 08/02/16 09:00 Check Patch 1 ea TRDERM DAILY 08/02/16 09:15 Sodium Chloride 0.9% [Normal Saline] 500 ml IV ASDIRECTED 08/03/16 05:15 BASIC METABOLIC PANEL,BMP [CHEM] AM CBC WITH AUTO DIFF [HEME] AM - Plan Plan:: Ms. Mercedez Puga is a 61-year-old female with medical history of diabetes mellitus, peripheral artery disease, coronary artery disease, chronic obstructive pulmonary disease, and chronic hypoxemic respiratory failure. She also has hypertension and congestive heart failure, systolic dysfunction (ef 35 % 05/2016). Stress test although was of poor quality- showed no reversible defect on 05/2016. The patient is practically homeless, was staying at the local [facility] hotel as provided by the [place]. Syncopal episode Likely orthostatic hypotension The patient was laying down and was watching TV. She got off and then had a syncopal episode. She was noted to have low blood pressure at side but blood pressure in the 80s She is on multiple blood pressure medications including Coreg, lisinopril, diuretics. The bun/creatinine ratio is elevated I will give 500 cc IVF slowly stop zaroxolyn monitor the patient Fall precautions. no arrythmia on telemetry - will discontinue Chronic systolic congestive heart failure with last ejection fraction around 35% Continue lasix, hold zaroxolyn, continue Coreg Diabetes Use Levemir and short-acting insulin Follow blood sugars use supplemental insulin as needed. Recent skin graft Will do daily dressing change on the donor side. Abnormal urine analysis I believe this is likely contaminant. I do not think that this is a UTI. Hold off on antibiotics. Chronic kidney disease stage III Monitor electrolytes and renal function test with diuretics. Continue Lasix but hold on Zaroxolyn Chronic COPD No apparent exacerbation Continue Dulera and DuoNeb when necessary History of hypertension Now concerned about orthostatic hypotension will monitor vital signs Peripheral vascular disease. Continue aspirin, Brilinta Tobacco use disorder. quit smoking 4 months ago taper nicotine patch Coronary artery disease. She is status post previous coronary angiogram with stent placement. Continue aspirin, Brilinta, statin, ELZA inhibitor, beta elicia DVT prophylaxis will be with subcutaneous heparin
[2016-08-02] MEDS: Nicotine 7 MG/24 Hr Patch TRDERM SCH (13:08)
[2016-08-02] MEDS: Acetaminophen 325 MG Tab PO PRN ×2 (17:44→22:03)
[2016-08-02] MEDS: Simvastatin 10 MG Tab PO SCH (20:45)
[2016-08-02] MEDS: Insulin Detemir 100 Units/ML 3 ML Pen SUBCUT SCH (20:46)
[2016-08-03] MEDS: Acetaminophen 325 MG Tab PO PRN ×4 (02:31→17:46)
[2016-08-03] MEDS: Bumetanide 1 MG Tab PO SCH (08:45)
[2016-08-03] MEDS: Tolterodine 2 MG Tab PO SCH ×2 (08:47→21:25)
[2016-08-03] MEDS: Gabapentin 300 MG Cap PO SCH ×3 (08:48→21:25)
[2016-08-03] MEDS: Aspirin 81 MG Tab.Chew PO SCH (08:48)
[2016-08-03] MEDS: FLUoxetine 10 MG Cap PO SCH (08:48)
[2016-08-03] MEDS: Nicotine 7 MG/24 Hr Patch TRDERM SCH (08:49)
[2016-08-03] MEDS: Check NICOTINE Patch TRDERM SCH (08:53)
[2016-08-03] MEDS: Formoterol/Mometasone 100-5 MCG 8.8 GM Inhaler IH SCH ×2 (09:16→21:24)
[2016-08-03] MEDS: Tiotropium Inhaler 18 MCG Inhalation Powder Cap Kit of 5 INH SCH (09:16)
[2016-08-03] MEDS: Heparin Sodium 5,000 Units/ML Vial SUBCUT SCH ×3 (09:17→22:40)
[2016-08-03] MEDS: Carvedilol 6.25 MG Tab PO SCH ×2 (09:35→17:45)
[2016-08-03] MEDS: Lisinopril 5 MG Tab PO SCH (09:36)
--- NOTE | 2016-08-03 09:42 | PCM.DCSUM1 ---
Discharge Summary - Hospital Course Free Text/Narrative:: Ms. Mercedez Puga is a 61-year-old female with medical history of diabetes mellitus, peripheral artery disease, coronary artery disease, chronic obstructive pulmonary disease, and chronic hypoxemic respiratory failure. She also has hypertension and congestive heart failure, systolic dysfunction (ef 35 % 05/2016). Stress test although was of poor quality- showed no reversible defect on 05/2016. The patient was practically homeless, was staying at the local [facility] as provided by the [facility]. Syncopal episode Likely orthostatic hypotension The patient was laying down and was watching TV. She got off and then had a syncopal episode. She was noted to have low blood pressure at side but blood pressure in the 80s She is on multiple blood pressure medications including Coreg, lisinopril, diuretics. The bun/creatinine ratio was elevated received IVF stop zaroxolyn decrease bumex from 2 mg bid to 2 mg in AM and 1 mg PM monitor the patient for chf/dehydration Chronic systolic congestive heart failure with last ejection fraction around 35% Continue lasix, hold zaroxolyn, continue Coreg Diabetes Use Levemir and short-acting insulin Follow blood sugars Recent skin graft daily dressing change on the donor side. Abnormal urine analysis I believe this is likely contaminant. I do not think that this is a UTI. Hold off on antibiotics. Chronic kidney disease stage III Monitor electrolytes and renal function test with diuretics. Continue Bumex but hold on Zaroxolyn Chronic COPD No apparent exacerbation Continue Dulera and DuoNeb when necessary History of hypertension Now concerned about orthostatic hypotension Monitor vital signs Peripheral vascular disease. Continue aspirin, Brilinta Tobacco use disorder. quit smoking 4 months ago Coronary artery disease. She is status post previous coronary angiogram with stent placement. Continue aspirin, Brilinta, statin, ELZA inhibitor, beta elicia - Discharge Data Discharge Date: 08/03/16 Discharge Disposition: DC/[facility] to [facility] Condition: Stable - Discharge Diagnosis/Problem(s) (1) Hypotension SNOMED Code(s): 28755869 ICD Code: I95.9 - HYPOTENSION, UNSPECIFIED Status: Acute Current Visit: Yes Qualifiers: Hypotension type: hypotension due to drug Qualified Code(s): I95.2 - Hypotension due to drugs (2) Syncope SNOMED Code(s): 510351310 ICD Code: R55 - SYNCOPE AND COLLAPSE Status: Acute Current Visit: Yes Qualifiers: Syncope type: unspecified Qualified Code(s): R55 - Syncope and collapse (3) COPD (chronic obstructive pulmonary disease) SNOMED Code(s): 50029371 ICD Code: J44.9 - CHRONIC OBSTRUCTIVE PULMONARY DISEASE, UNSPECIFIED Status : Chronic Current Visit: No (4) Cardiomyopathy SNOMED Code(s): 78334901 ICD Code: I42.9 - CARDIOMYOPATHY, UNSPECIFIED Status: Chronic Current Visit: No (5) Tobacco abuse SNOMED Code(s): 086224042, 659614745 ICD Code: Z72.0 - TOBACCO USE Status: Chronic Current Visit: No - Patient Instructions Diet: Heart Healthy Diet Activity: As Tolerated - Discharge Plan Home Medications: Home Meds ARIPiprazole [Aripiprazole] 10 mg PO BID 07/19/16 [History] Albuterol Sulfate [Ventolin Hfa] 1 puff IH Q6H PRN 07/19/16 [History] Aspirin 81 mg PO BRK 07/19/16 [History] Carvedilol 12.5 mg PO BID 07/19/16 [History] Ergocalciferol (Vitamin D2) [Vitamin D2] 50,000 units PO Q7D 07/19/16 [History] FLUoxetine HCl [Prozac] 20 mg PO DAILY 07/19/16 [History] Gabapentin [Neurontin] 300 mg PO TID 07/19/16 [History] Insulin Detemir [Levemir] 30 unit SUBCUT BEDTIME 07/19/16 [History] Lisinopril 2.5 mg PO DAILY 07/19/16 [History] Mometasone/Formoterol [Dulera 100-5 MCG] 1 puff IN BID 07/19/16 [History] Simvastatin [Zocor] 20 mg PO BEDTIME 07/19/16 [History] Ticagrelor [Brilinta] 90 mg PO BID 07/19/16 [History] Tiotropium [Spiriva HandiHaler] 18 mcg IN DAILY 07/19/16 [History] Tolterodine [Detrol] 2 mg PO BID 07/19/16 [History] Bumetanide [Bumex] 1 mg PO .QPM tablet 08/03/16 [Rx] Bumetanide [Bumex] 2 mg PO DAILY tablet 08/03/16 [Rx] Referrals: PCP,Unobtain [Primary Care Provider] - (dr. Delgado in 2-3 days) - Discharge Summary/Plan Comment DC Time >30 min.: No - General Info Date of Service: 08/03/16 Admission Dx/Problem (Free Text: Admission Diagnosis/Problem Admission Diagnosis/Problem Syncope Subjective Update: Since admission she has remained stable. No presyncopal symptoms. No chest pain , dizziness, palpitation. - Review of Systems General: Denies: Fever, Weakness Pulmonary: Denies: shortness of breath Cardiovascular: Denies: Chest Pain Gastrointestinal: Denies: Abdominal pain Genitourinary: Denies: dysuria, frequency Neurological: Denies: Pre-Existing Deficit - Patient Data Vitals - Most Recent: Last Vital Signs Temp 36.9 C 08/03/16 07:52 Pulse 52 L 08/03/16 09:35 Resp 20 08/03/16 07:52 BP 93/55 L 08/03/16 09:36 Pulse Ox 98 08/03/16 07:52 Weight - Most Recent: 55.883 kg I&O - Last 24 hours: Intake & Output 08/02/16 08/03/16 08/03/16 22:59 06:59 14:59 Intake Total 2575 650 Output Total 1400 1600 Balance 1175 -950 Lab Results - Last 24 hrs: Laboratory Results - last 24 hr 08/02/16 08/02/16 08/02/16 Range/Units 11:39 16:47 20:36 WBC (5.0-10.0) 10^3/uL RBC (4.2-5.4) 10^6/uL Hgb (12.0-16.0) g/dL Hct (37.0-47.0) % MCV (80-100) fL MCH (27.0-34.0) pg MCHC (33.0-35.0) g/dL Plt Count (150-450) 10^3/uL Neut % (Auto) (42.2-75.2) % Lymph % (Auto) (20.5-50.1) % [place] % (Auto) (2-8) % Eos % (Auto) (1.0-3.0) % Baso % (Auto) (0.0-1.0) % Sodium (135-145) mmol/L Potassium (3.6-5.0) mmol/L Chloride (101-111) mmol/L Carbon Dioxide (21.0-31.0) mmol/L Anion Gap BUN (7-18) mg/dL Creatinine (0.6-1.3) mg/dL Est Cr Clr Drug Dosing mL/min Estimated GFR (MDRD) Glucose (74-105) mg/dL POC Glucose 145 H 168 H 221 H (70-105) mg/dl Calcium (8.4-10.2) mg/dl 08/03/16 08/03/16 08/03/16 Range/Units 05:20 05:20 07:48 WBC 5.8 (5.0-10.0) 10^3/uL RBC 3.70 L (4.2-5.4) 10^6/uL Hgb 11.1 L (12.0-16.0) g/dL Hct 33.9 L (37.0-47.0) % MCV 91.6 (80-100) fL MCH 30.0 (27.0-34.0) pg MCHC 32.7 L (33.0-35.0) g/dL Plt Count 398 (150-450) 10^3/uL Neut % (Auto) 49.2 (42.2-75.2) % Lymph % (Auto) 35.7 (20.5-50.1) % [place] % (Auto) 8.7 H (2-8) % Eos % (Auto) 4.5 H (1.0-3.0) % Baso % (Auto) 1.9 H (0.0-1.0) % Sodium 129 L (135-145) mmol/L Potassium 4.7 (3.6-5.0) mmol/L Chloride 92 L (101-111) mmol/L Carbon Dioxide 25.0 (21.0-31.0) mmol/L Anion Gap 16.7 BUN 93 H (7-18) mg/dL Creatinine 2.1 H (0.6-1.3) mg/dL Est Cr Clr Drug Dosing 23.86 mL/min Estimated GFR (MDRD) 24 Glucose 94 (74-105) mg/dL POC Glucose 99 (70-105) mg/dl Calcium 9.1 (8.4-10.2) mg/dl Med Orders - Current: Current Medications Acetaminophen (Tylenol) 650 mg PO Q4H PRN PRN Reason: Pain (Mild 1-3)/fever Last Admin: 08/03/16 08:45 Dose: 650 mg Albuterol (Proventil Hfa) 0 gm INH Q6H PRN PRN Reason: Wheezing Aspirin (Aspirin) 81 mg PO BRK [facility] Last Admin: 08/03/16 08:48 Dose: 81 mg Bumetanide (Bumex) 1 mg PO .QPM [place] Bumetanide (Bumex) 2 mg PO DAILY [facility] Carvedilol (Coreg) 12.5 mg PO BIDMEALS [facility] Last Admin: 08/03/16 09:35 Dose: Not Given Fluoxetine HCl (Prozac) 20 mg PO DAILY [facility] Last Admin: 08/03/16 08:48 Dose: 20 mg Gabapentin (Neurontin) 300 mg PO TID [facility] Last Admin: 08/03/16 08:48 Dose: 300 mg Heparin Sodium (Porcine) (Heparin Sodium) 5,000 units SUBCUT Q8HR [facility] Last Admin: 08/03/16 09:17 Dose: Not Given Sodium Chloride (Normal Saline) 500 mls @ 50 mls/hr IV ASDIRECTED [facility] Last Infusion: 08/02/16 20:36 Dose: Infused Insulin Detemir (Levemir) 30 unit SUBCUT BEDTIME [facility] Last Admin: 08/02/16 20:46 Dose: 30 units Lisinopril (Prinivil) 2.5 mg PO DAILY [facility] Last Admin: 08/03/16 09:36 Dose: Not Given Miscellaneous Information (Check Patch) 1 ea TRDERM DAILY [facility] Last Admin: 08/03/16 08:53 Dose: 1 ea Mometasone Furoate/Formoterol Fumar (Dulera 100-5 Mcg) 1 puff IH BID [facility] Last Admin: 08/03/16 09:16 Dose: 1 puff Nicotine (Habitrol) 7 mg TRDERM DAILY [facility] Last Admin: 08/03/16 08:49 Dose: 7 mg Non-Formulary Medication (Aripiprazole [Aripiprazole]) 10 mg PO BID [facility] Non-Formulary Medication (Ticagrelor [Brilinta]) 90 mg PO BID [facility] Simvastatin (Zocor) 20 mg PO BEDTIME [facility] Last Admin: 08/02/16 20:45 Dose: 20 mg Sodium Chloride (Saline Flush) 10 ml FLUSH ASDIRECTED PRN PRN Reason: Keep Vein Open Last Admin: 08/02/16 20:37 Dose: 10 ml Tiotropium [place] (Spiriva Handihaler) 18 mcg INH DAILY [facility] Last Admin: 08/03/16 09:16 Dose: 18 mcg Tolterodine Tartrate (Detrol) 2 mg PO BID [facility] Last Admin: 08/03/16 08:47 Dose: 2 mg Zolpidem Tartrate (Ambien) 5 mg PO BEDTIME PRN PRN Reason: Sleep Discontinued Medications Bumetanide (Bumex) 2 mg PO BIDDIURETIC [facility] Last Admin: 08/03/16 08:45 Dose: 2 mg Nicotine (Habitrol) 21 mg TRDERM DAILY [facility] Last Admin: 08/02/16 10:04 Dose: 21 mg Sodium Chloride (Saline Flush) 10 ml FLUSH ASDIRECTED PRN PRN Reason: Keep Vein Open - Exam Quality Assessment: Denies: supplemental oxygen General: Reports: alert, oriented Neck: Reports: supple Lungs: Reports: Normal respiratory effort, Decreased breath sounds Cardiovascular: Reports: Regular Rate, Regular Rhythm Abdomen: Reports: bowel sounds present, soft Extremities: Reports: no edema Skin: Reports: warm, other (skin transplant donor and recipient site) Neurological: Reports: no new focal deficit *Q Meaningful Use (DIS) - VTE *Q VTE Criteria *Q: - Stroke *Q Stroke Criteria *Q: - AMI *Q AMI Criteria *Q:
[2016-08-03] MEDS: [UNRECOGNIZED DRUG - REMARK] PO SCH ×3 (12:55→22:40)
[2016-08-03] MEDS: [UNRECOGNIZED DRUG - REMARK] PO SCH ×4 (12:55→22:40)
--- NOTE | 2016-08-03 13:28 | PCM.PN ---
- General Info Date of Service: 08/03/16 Admission Dx/Problem (Free Text): Admission Diagnosis/Problem Admission Diagnosis/Problem Syncope Subjective Update: Since admission she has remained stable. she is feeling well today. No presyncopal symptoms. No chest pain, dizziness, palpitation. no SOB Functional Status: Reports: tolerating diet, ambulating, urinating - Review of Systems General: Denies: Fever, Weakness Pulmonary: Denies: shortness of breath Cardiovascular: Denies: Chest Pain Genitourinary: Denies: dysuria - Patient Data Vitals - most recent: Last Vital Signs Temp 36.9 C 08/03/16 07:52 Pulse 52 L 08/03/16 09:35 Resp 20 08/03/16 07:52 BP 93/55 L 08/03/16 09:36 Pulse Ox 98 08/03/16 07:52 Weight - most recent: 55.883 kg I&O - last 24 hours: Intake & Output 08/02/16 08/03/16 08/03/16 22:59 06:59 14:59 Intake Total 2575 650 600 Output Total 1400 1600 Balance 1175 -950 600 Lab Results last 24 hrs: Laboratory Results - last 24 hr 08/02/16 08/02/16 08/03/16 Range/Units 16:47 20:36 05:20 WBC 5.8 (5.0-10.0) 10^3/uL RBC 3.70 L (4.2-5.4) 10^6/uL Hgb 11.1 L (12.0-16.0) g/dL Hct 33.9 L (37.0-47.0) % MCV 91.6 (80-100) fL MCH 30.0 (27.0-34.0) pg MCHC 32.7 L (33.0-35.0) g/dL Plt Count 398 (150-450) 10^3/uL Neut % (Auto) 49.2 (42.2-75.2) % Lymph % (Auto) 35.7 (20.5-50.1) % [place] % (Auto) 8.7 H (2-8) % Eos % (Auto) 4.5 H (1.0-3.0) % Baso % (Auto) 1.9 H (0.0-1.0) % Sodium (135-145) mmol/L Potassium (3.6-5.0) mmol/L Chloride (101-111) mmol/L Carbon Dioxide (21.0-31.0) mmol/L Anion Gap BUN (7-18) mg/dL Creatinine (0.6-1.3) mg/dL Est Cr Clr Drug Dosing mL/min Estimated GFR (MDRD) Glucose (74-105) mg/dL POC Glucose 168 H 221 H (70-105) mg/dl Calcium (8.4-10.2) mg/dl 08/03/16 08/03/16 08/03/16 Range/Units 05:20 07:48 11:02 WBC (5.0-10.0) 10^3/uL RBC (4.2-5.4) 10^6/uL Hgb (12.0-16.0) g/dL Hct (37.0-47.0) % MCV (80-100) fL MCH (27.0-34.0) pg MCHC (33.0-35.0) g/dL Plt Count (150-450) 10^3/uL Neut % (Auto) (42.2-75.2) % Lymph % (Auto) (20.5-50.1) % [place] % (Auto) (2-8) % Eos % (Auto) (1.0-3.0) % Baso % (Auto) (0.0-1.0) % Sodium 129 L (135-145) mmol/L Potassium 4.7 (3.6-5.0) mmol/L Chloride 92 L (101-111) mmol/L Carbon Dioxide 25.0 (21.0-31.0) mmol/L Anion Gap 16.7 BUN 93 H (7-18) mg/dL Creatinine 2.1 H (0.6-1.3) mg/dL Est Cr Clr Drug Dosing 23.86 mL/min Estimated GFR (MDRD) 24 Glucose 94 (74-105) mg/dL POC Glucose 99 232 H (70-105) mg/dl Calcium 9.1 (8.4-10.2) mg/dl Med Orders - Current: Current Medications Acetaminophen (Tylenol) 650 mg PO Q4H PRN PRN Reason: Pain (Mild 1-3)/fever Last Admin: 08/03/16 13:22 Dose: 650 mg Albuterol (Proventil Hfa) 0 gm INH Q6H PRN PRN Reason: Wheezing Aspirin (Aspirin) 81 mg PO BRK [facility] Last Admin: 08/03/16 08:48 Dose: 81 mg Bumetanide (Bumex) 1 mg PO BEDTIME [facility] Bumetanide (Bumex) 2 mg PO DAILY [facility] Carvedilol (Coreg) 12.5 mg PO BIDMEALS [facility] Last Admin: 08/03/16 09:35 Dose: Not Given Fluoxetine HCl (Prozac) 20 mg PO DAILY [facility] Last Admin: 08/03/16 08:48 Dose: 20 mg Gabapentin (Neurontin) 300 mg PO TID [facility] Last Admin: 08/03/16 13:22 Dose: 300 mg Heparin Sodium (Porcine) (Heparin Sodium) 5,000 units SUBCUT Q8HR [facility] Last Admin: 08/03/16 13:23 Dose: Not Given Insulin Detemir (Levemir) 30 unit SUBCUT BEDTIME [facility] Last Admin: 08/02/16 20:46 Dose: 30 units Lisinopril (Prinivil) 2.5 mg PO DAILY [facility] Last Admin: 08/03/16 09:36 Dose: Not Given Miscellaneous Information (Check Patch) 1 ea TRDERM DAILY [facility] Last Admin: 08/03/16 08:53 Dose: 1 ea Mometasone Furoate/Formoterol Fumar (Dulera 100-5 Mcg) 1 puff IH BID [facility] Last Admin: 08/03/16 09:16 Dose: 1 puff Nicotine (Habitrol) 7 mg TRDERM DAILY [facility] Last Admin: 08/03/16 08:49 Dose: 7 mg Aripiprazole [ Aripiprazole] 10 Mg* *Non-Form Med 10 mg PO BID [facility] Last Admin: 08/03/16 12:55 Dose: Not Given Ticagrelor [Brilinta ] 90 MgNon-Form Med 90 mg PO BID [facility] Last Admin: 08/03/16 12:55 Dose: Not Given Simvastatin (Zocor) 20 mg PO BEDTIME [facility] Last Admin: 08/02/16 20:45 Dose: 20 mg Sodium Chloride (Saline Flush) 10 ml FLUSH ASDIRECTED PRN PRN Reason: Keep Vein Open Last Admin: 08/02/16 20:37 Dose: 10 ml Tiotropium [place] (Spiriva Handihaler) 18 mcg INH DAILY [facility] Last Admin: 08/03/16 09:16 Dose: 18 mcg Tolterodine Tartrate (Detrol) 2 mg PO BID [facility] Last Admin: 08/03/16 08:47 Dose: 2 mg Zolpidem Tartrate (Ambien) 5 mg PO BEDTIME PRN PRN Reason: Sleep Discontinued Medications Bumetanide (Bumex) 2 mg PO BIDDIURETIC [facility] Last Admin: 08/03/16 08:45 Dose: 2 mg Sodium Chloride (Normal Saline) 500 mls @ 50 mls/hr IV ASDIRECTED [facility] Last Infusion: 08/02/16 20:36 Dose: Infused Nicotine (Habitrol) 21 mg TRDERM DAILY [facility] Last Admin: 08/02/16 10:04 Dose: 21 mg Sodium Chloride (Saline Flush) 10 ml FLUSH ASDIRECTED PRN PRN Reason: Keep Vein Open - Exam General: alert, oriented Neck: supple Lungs: Normal respiratory effort, Decreased breath sounds Cardiovascular: Regular Rate Extremities: no edema Skin: other (wound sites with dressing) - Problem List & Annotations (1) Hypotension SNOMED Code(s): 34060686 Code(s): I95.9 - HYPOTENSION, UNSPECIFIED Status: Acute Current Visit: Yes Qualifiers: Hypotension type: hypotension due to drug Qualified Code(s): I95.2 - Hypotension due to drugs (2) Syncope SNOMED Code(s): 444719416 Code(s): R55 - SYNCOPE AND COLLAPSE Status: Acute Current Visit: Yes Qualifiers: Syncope type: unspecified Qualified Code(s): R55 - Syncope and collapse (3) COPD (chronic obstructive pulmonary disease) SNOMED Code(s): 45277281 Code(s): J44.9 - CHRONIC OBSTRUCTIVE PULMONARY DISEASE, UNSPECIFIED Status : Chronic Current Visit: No (4) Cardiomyopathy SNOMED Code(s): 18779102 Code(s): I42.9 - CARDIOMYOPATHY, UNSPECIFIED Status: Chronic Current Visit: No (5) Tobacco abuse SNOMED Code(s): 293142652, 640198779 Code(s): Z72.0 - TOBACCO USE Status: Chronic Current Visit: No - Problem List Review Problem List Initiated/Reviewed/Updated: Yes - My Orders Last 24 Hours: My Active Orders 08/02/16 21:03 Communication Order [RC] ROUTINE 08/03/16 09:37 Ready for Discharge [RC] PER UNIT ROUTINE 08/03/16 21:00 Bumetanide [Bumex] 1 mg PO BEDTIME 08/04/16 09:00 Bumetanide [Bumex] 2 mg PO DAILY - Plan Plan:: Ms. Mercedez Puga is a 61-year-old female with medical history of diabetes mellitus, peripheral artery disease, coronary artery disease, chronic obstructive pulmonary disease, and chronic hypoxemic respiratory failure. She also has hypertension and congestive heart failure, systolic dysfunction (ef 35 % 05/2016). Stress test although was of poor quality- showed no reversible defect on 05/2016. The patient is practically homeless, [facility] provided by [facility] [place]. Syncopal episode Likely orthostatic hypotension The patient was laying down and was watching TV. She got off and then had a syncopal episode. She was noted to have low blood pressure at side but blood pressure in the 80s She is on multiple blood pressure medications including Coreg, lisinopril, diuretics. The bun/creatinine ratio is elevated received 500 cc IVF decrease Bumex to 2mg in am 1 mg PM stop zaroxolyn monitor the patient Fall precautions. Chronic systolic congestive heart failure with last ejection fraction around 35% Continue bumex, hold zaroxolyn, continue Coreg Diabetes Use Levemir and short-acting insulin Follow blood sugars use supplemental insulin as needed. Recent skin graft Will do daily dressing change on the donor side. Abnormal urine analysis I believe this is likely contaminant. I do not think that this is a UTI. Hold off on antibiotics. Chronic kidney disease stage III Monitor electrolytes and renal function test with diuretics. Continue lower dose Bumex but hold on Zaroxolyn Chronic COPD No apparent exacerbation Continue Dulera and DuoNeb when necessary History of hypertension Now concerned about orthostatic hypotension will monitor vital signs Peripheral vascular disease. Continue aspirin, Brilinta Tobacco use disorder. quit smoking 4 months ago taper nicotine patch Coronary artery disease. She is status post previous coronary angiogram with stent placement. Continue aspirin, Brilinta, statin, ELZA inhibitor, beta elicia DVT prophylaxis will be with subcutaneous heparin
--- NOTE | 2016-08-03 13:50 | EKG ---
08/01/2016- ROSEMARY TALAMANTES - EKG per my reading shows sinus rhythm with inverted T-waves diffusely in the anteroseptal and lateral leads. [facility] /[id number]
[2016-08-03] MEDS ORDERED: Bumetanide 1 MG Tab PO SCH (21:00)
[2016-08-03] MEDS: Insulin Detemir 100 Units/ML 3 ML Pen SUBCUT SCH (21:24)
[2016-08-03] MEDS: Simvastatin 10 MG Tab PO SCH (21:25)
[2016-08-04] MEDS: Acetaminophen 325 MG Tab PO PRN ×2 (02:29→08:13)
[2016-08-04] MEDS: Heparin Sodium 5,000 Units/ML Vial SUBCUT SCH (06:39)
[2016-08-04 07:48] VITALS: BP 125/69
[2016-08-04] MEDS: Tolterodine 2 MG Tab PO SCH (08:08)
[2016-08-04] MEDS: Formoterol/Mometasone 100-5 MCG 8.8 GM Inhaler IH SCH (08:09)
[2016-08-04] MEDS: Tiotropium Inhaler 18 MCG Inhalation Powder Cap Kit of 5 INH SCH (08:09)
[2016-08-04] MEDS: Gabapentin 300 MG Cap PO SCH (08:09)
[2016-08-04] MEDS: Aspirin 81 MG Tab.Chew PO SCH (08:10)
[2016-08-04] MEDS: Lisinopril 5 MG Tab PO SCH (08:10)
[2016-08-04] MEDS: FLUoxetine 10 MG Cap PO SCH (08:11)
[2016-08-04] MEDS: Carvedilol 6.25 MG Tab PO SCH (08:12)
[2016-08-04] MEDS: Nicotine 7 MG/24 Hr Patch TRDERM SCH (08:14)
[2016-08-04] MEDS: Check NICOTINE Patch TRDERM SCH (08:15)
[2016-08-04] MEDS: [UNRECOGNIZED DRUG - REMARK] PO SCH (08:15)
[2016-08-04] MEDS: [UNRECOGNIZED DRUG - REMARK] PO SCH (08:15)
[2016-08-04] MEDS ORDERED: Bumetanide 1 MG Tab PO SCH (09:00)
--- NOTE | 2016-08-05 07:16 | DISCH ---
ADDENDUM TO DISCHARGE SUMMARY: HISTORY OF PRESENT ILLNESS: Ms. Puga is a 61-year-old female, who will be discharged from the hospital today for a direct admission to [facility] in [place]. She was scheduled to be discharged yesterday, however, the discharge was delayed because we were waiting for prior authorization from [place]. We received that approval late in the day yesterday and she will be discharged this morning. I saw the patient late yesterday to do the pre-admission history and physical with her for the residential. She denied any new complaints or concerns and she was hemodynamically stable. PHYSICAL EXAMINATION: Performed late yesterday and was unremarkable. Vital Signs: This morning, her vital signs are stable. Blood pressure is 125/69, pulse 69, respiratory rate 20, oxygen saturation 100% on room air, temperature 97.4, weight is 122 pounds. Review of her clinical data shows good oral intake. She is taking in adequate fluids. She is tolerating 100% of her meals. She is voiding and moving her bowels. LABORATORY DATA: Repeat lab work was performed this morning. A CBC, basic panel was obtained. Hemoglobin and hematocrit are stable at 11 and 33, white count 6.0, platelets are normal. Sodium is chronically low at 127, potassium 4.3, BUN and creatinine 96 and 1.8, with a GFR of 29 (CKD 4). Fasting blood sugar this morning was 86. IMPRESSION: A 61-year-old lady with multiple medical problems as well as multiple social and personal issues. She currently is homeless and unable to manage her medical regimen. PLAN: The patient has agreed to be admitted to the [facility] for ongoing care. CONDITION AT THE TIME OF DISCHARGE: Hemodynamically and neurologically stable. [facility] /[id number] MTDAnisa
== END 2016-08-04 10:05 ==
LOC: DL.ED 11:47 → UNDOADMOB 14:11 → INTOOBSV 14:11 → DL.MS 14:11
PROVIDERS: ADMIT Internal Medicine; ATTEND Internal Medicine
DX: I95.2 Hypotension due to drugs (principal); R55 Syncope and collapse; E78.00 Pure hypercholesterolemia, unspecified; I42.9 Cardiomyopathy, unspecified; I73.9 Peripheral vascular disease, unspecified; I25.10 Atherosclerotic heart disease of native coronary artery without angina pectoris; J44.9 Chronic obstructive pulmonary disease, unspecified; J96.11 Chronic respiratory failure with hypoxia; I13.0 Hypertensive heart and chronic kidney disease with heart failure and stage 1 through stage 4 chronic kidney disease, or unspecified chronic kidney disease; I50.20 Unspecified systolic (congestive) heart failure; N18.3 Chronic kidney disease, stage 3 (moderate); E11.22 Type 2 diabetes mellitus with diabetic chronic kidney disease; J45.909 Unspecified asthma, uncomplicated; I25.2 Old myocardial infarction; K21.9 Gastro-esophageal reflux disease without esophagitis; M19.90 Unspecified osteoarthritis, unspecified site; M79.7 Fibromyalgia; G43.909 Migraine, unspecified, not intractable, without status migrainosus; Z79.82 Long term (current) use of aspirin; Z87.891 Personal history of nicotine dependence; Z79.899 Other long term (current) drug therapy; Z95.5 Presence of coronary angioplasty implant and graft; Z79.4 Long term (current) use of insulin; Z88.8 Allergy status to other drugs, medicaments and biological substances; Z90.710 Acquired absence of both cervix and uterus; Z98.49 Cataract extraction status, unspecified eye
CPT/HCPCS: 36415; 71010; 80048; 80053; 80305; 81001; 82962; 83880; 84484; 85025; 93005; 96360; 96361; 96372; 97161; 99285; A9270; G0378; J1644; J1815; J7050

== ENCOUNTER 2016-12-27 17:00 | Emergency (ER) | payer MEDICAID ==
[2016-12-27] MEDS ORDERED: Sodium Chloride 0.9% 10 ML Syringe FLUSH PRN (17:10)
[2016-12-27 17:31] VITALS: BP 191/69
[2016-12-27] MEDS ORDERED: HYDROmorphone 1 MG/ML Syringe IVPUSH ONE (18:53)
--- NOTE | 2016-12-27 18:55 | EDM.PDOC ---
Scribed by Tiera Clifton 12/27/16 [id number] for Sagrario Bertrand NP ED HPI GENERAL MEDICAL PROBLEM - General Chief Complaint: Lower Extremity Injury/Pain Stated Complaint: FELL 12/26 LEG/HIP PAIN. IN BY SL AMB Time Seen by Provider: 12/27/16 17:10 Source of Information: Reports: Patient, EMS Notes Reviewed, RN, RN Notes Reviewed History Limitations: Reports: No Limitations - History of Present Illness INITIAL COMMENTS - FREE TEXT/NARRATIVE: Patient states fell at home last evening. Complains of left hip pain/femur pain. States family has carried her to the bathroom as needed. Denies hitting head/loosing consciousness. Denies pain elsewhere. Denies fever,cough, nausea, vomiting, diarrhea, chest pain or shortness of breath. Rates pain 8/10 in left hip. Location: Reports: Lower Extremity, Left Quality: Reports: Ache Severity: Moderate Improves with: Reports: None Worsens with: Reports: None Associated Symptoms: Reports: No Other Symptoms Left Hip Pain Score (Numeric/FACES): 8 - Related Data Allergies Allergy/AdvReac Type Severity Reaction Status Date / Time capsaicin Allergy UNKNOWN Verified 08/01/16 14:34 codeine Allergy Nausea and Verified 08/01/16 14:34 Vomiting ibuprofen Allergy Itching Verified 08/01/16 14:34 pregabalin Allergy CONTACT Verified 08/01/16 14:34 DERMATITIS ALLERGY Home Meds: Home Meds ARIPiprazole [Aripiprazole] 10 mg PO BID 07/19/16 [History] Albuterol Sulfate [Ventolin Hfa] 1 puff IH Q6H PRN 07/19/16 [History] Aspirin 81 mg PO BRK 07/19/16 [History] Carvedilol 12.5 mg PO BID 07/19/16 [History] Ergocalciferol (Vitamin D2) [Vitamin D2] 50,000 units PO Q7D 07/19/16 [History] FLUoxetine HCl [Prozac] 20 mg PO DAILY 07/19/16 [History] Gabapentin [Neurontin] 300 mg PO TID 07/19/16 [History] Insulin Detemir [Levemir] 30 unit SUBCUT BEDTIME 07/19/16 [History] Lisinopril 2.5 mg PO DAILY 07/19/16 [History] Mometasone/Formoterol [Dulera 100-5 MCG] 1 puff IN BID 07/19/16 [History] Simvastatin [Zocor] 20 mg PO BEDTIME 07/19/16 [History] Ticagrelor [Brilinta] 90 mg PO BID 07/19/16 [History] Tiotropium [Spiriva HandiHaler] 18 mcg IN DAILY 07/19/16 [History] Tolterodine [Detrol] 2 mg PO BID 07/19/16 [History] Bumetanide [Bumex] 1 mg PO .QPM tablet 08/03/16 [Rx] Bumetanide [Bumex] 2 mg PO DAILY tablet 08/03/16 [Rx] Past Medical History HEENT History: Reports: Glaucoma, Impaired Vision Other HEENT History: 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 Cardiovascular History: Reports: High Cholesterol, Hypertension, [place], Stents Respiratory History: Reports: Asthma, COPD, SOB Gastrointestinal History: Reports: Gastritis, GERD, Hemorrhoids Genitourinary History: Reports: None [employer]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[employer]ER History: Reports: 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, Other (See Below) Other OB/BYN History: hysterectomy Musculoskeletal History: Reports: Arthritis, Back Pain, Chronic, Fibromyalgia Neurological History: Reports: Migraines Other Neuro History: hx of migraines; states she doesn't get them anymore Psychiatric History: Reports: None Endocrine/Metabolic History: Reports: Diabetes, Type II Hematologic History: Reports: None Immunologic History: Reports: None Oncologic (Cancer) History: Reports: None Dermatologic History: Reports: Cellulitis, Other (See Below) Other Dermatologic History: poor circulation in legs - Infectious Disease History Infectious Disease History: Reports: None - Past Surgical History Head Surgeries/Procedures: Reports: None HEENT Surgical History: Reports: Cataract Surgery, Eye Surgery, Laser Surgery Cardiovascular Surgical History: Reports: Coronary Artery Stent GI Surgical History: Reports: None Neurological Surgical History: Reports: None Social & Family History - Family History Family Medical History: Noncontributory HEENT: Reports: None Cardiac: Reports: None Respiratory: Reports: None GI: Reports: None OBGYN: Reports: None Musculoskeletal: Reports: Fibromyalgia Other Musculoskeletal Family History: cousin Neurological: Reports: None Psychiatric: Reports: None Oncologic: Reports: Breast Other Oncologic Family History: Aunt had breast cancer - Tobacco Use Smoking Status *Q: Former Smoker Years of Tobacco use: 35 Packs/Tins Daily: 0.2 Used Tobacco, but Quit: No Month Tobacco Last Used: mar Second Hand Smoke Exposure: Yes - Caffeine Use Caffeine Use: Reports: Coffee Caffeine Use Comment: 4 cups in morning and 1 in the evening - Alcohol Use Days Per Week of Alcohol Use: 0 - Recreational Drug Use Recreational Drug Use: No Recreational Drug Type: Reports: Marijuana/Hashish Recreational Drug Use Frequency: Socially - Living Situation & Occupation Living situation: Reports: Other (homeless) Occupation: Unemployed Review of Systems - Review of Systems Review Of Systems: ROS reveals no pertinent complaints other than HPI. ED EXAM, GENERAL - Physical Exam Exam: See Below Exam Limited By: No Limitations General Appearance: Alert, WD/WN, No Apparent Distress Eye Exam: Left Eye: Other (left cataract.) Ears: Normal External Exam, Normal Canal, Hearing Grossly Normal, Normal TMs Nose: Normal Inspection, Normal Mucosa, No Blood Throat/Mouth: Normal Inspection, Normal Lips, Normal Teeth, Normal Gums, Normal Oropharynx, Normal Voice, No Airway Compromise Head: Atraumatic, Normocephalic Neck: Normal Inspection, Supple, Non-Tender, Full Range of Motion Respiratory/Chest: No Respiratory Distress, Lungs Clear, Normal Breath Sounds, No Accessory Muscle Use, Chest Non-Tender Cardiovascular: Normal Peripheral Pulses, Regular Rate, Rhythm, No Edema, No Gallop, No JVD, No Murmur, No Rub GI/Abdominal: Normal Bowel Sounds, Soft, Non-Tender, No Organomegaly, No Distention, No Abnormal Bruit, No Mass (Female) Exam: Other (Monroe placed.) Rectal (Female) Exam: Deferred Back Exam: Normal Inspection, Full Range of Motion, NT Extremities: Other (Left hip/left femur.Noweight bearing.) Neurological: Alert, Oriented, CN II-XII Intact, Normal Cognition, Normal Gait, Normal Reflexes, No Motor/Sensory Deficits Psychiatric: Normal Affect, Normal Mood Skin Exam: Other (many areas of plugged pores.) Lymphatic: No Adenopathy Course - Vital Signs Last Recorded V/S: Last Vital Signs Temp 98.2 F 12/27/16 17:30 Pulse 95 12/27/16 17:30 Resp 20 12/27/16 17:30 BP 191/69 H 12/27/16 17:30 Pulse Ox 96 12/27/16 17:30 - Orders/Labs/Meds Orders: Active Orders 24 hr Category Date Time Status [place] Catheter Insertion [Insert Urinary Catheter] [OM. Care 12/27/16 17:15 Ordered PC] Q24H Peripheral IV Care [RC] . DIRECTED Care 12/27/16 17:10 Active Urinary Catheter Assessment [RC] ASDIRECTED Care 12/27/16 17:11 Active Sodium Chloride 0.9% [Saline Flush] Med 12/27/16 17:10 Active 10 ml FLUSH ASDIRECTED PRN Peripheral IV Insertion Adult [OM.PC] Stat Oth 12/27/16 17:10 Ordered Medication Orders Sodium Chloride (Saline Flush) 10 ml FLUSH ASDIRECTED PRN PRN Reason: Keep Vein Open Labs: Laboratory Tests 12/27/16 12/27/16 12/27/16 Range/Units 17:16 17:27 17:27 WBC 7.4 (5.0-10.0) 10^3/uL RBC 3.95 L (4.2-5.4) 10^6/uL Hgb 11.3 L (12.0-16.0) g/dL Hct 36.0 L (37.0-47.0) % MCV 91.1 (80-100) fL MCH 28.6 (27.0-34.0) pg MCHC 31.4 L (33.0-35.0) g/dL Plt Count 310 (150-450) 10^3/uL Neut % (Auto) 63.4 (42.2-75.2) % Lymph % (Auto) 26.4 (20.5-50.1) % [place] % (Auto) 6.5 (2-8) % Eos % (Auto) 2.8 (1.0-3.0) % Baso % (Auto) 0.9 (0.0-1.0) % Sodium 134 L (135-145) mmol/L Potassium 3.9 (3.6-5.0) mmol/L Chloride 108 D (101-111) mmol/L Carbon Dioxide 18.0 L (21.0-31.0) mmol/L Anion Gap 11.9 BUN 38 H D (7-18) mg/dL Creatinine 2.0 H (0.6-1.3) mg/dL Est Cr Clr Drug Dosing 25.05 mL/min Estimated GFR (MDRD) 26 BUN/Creatinine Ratio 19.00 Glucose 206 H (74-105) mg/dL Calcium 8.3 L (8.4-10.2) mg/dl Total Bilirubin 0.3 (0.2-1.0) mg/dL AST 15 (10-42) IU/L ALT 10 (10-60) IU/L Alkaline Phosphatase 86 (42-121) IU/L Total Protein 5.9 L (6.7-8.2) g/dl Albumin 2.0 L (3.2-5.5) g/dl Globulin 3.9 Albumin/Globulin Ratio 0.51 Urine Color Yellow (YELLOW) Urine Appearance Clear (CLEAR) Urine pH 7.0 (5.0-9.0) Ur Specific [place] 1.020 (1.005-1.030) Urine Protein >=300 H (NEGATIVE) Urine Glucose (UA) 250 H (NEGATIVE) Urine Ketones Negative (NEGATIVE) Urine Occult Blood Trace-intact H (NEGATIVE) Urine Nitrite Negative (NEGATIVE) Urine Bilirubin Negative (NEGATIVE) Urine Urobilinogen 0.2 (0.2-1.0) mg/dL Ur Leukocyte Esterase Negative (NEGATIVE) Urine RBC 0-5 /HPF Urine WBC 0-5 (0-5/HPF) /HPF Ur Epithelial Cells Few /HPF Amorphous Sediment Moderate H (0/HPF) /HPF Urine Bacteria Few (0-FEW/HPF) /HPF Meds: Medications Generic Name Dose Route Start Last Admin Trade Name Freq PRN Reason Stop Dose Admin Sodium Chloride 10 ml 12/27/16 17:10 Saline Flush FLUSH ASDIRECTED PRN Keep Vein Open Discontinued Medications Generic Name Dose Route Start Last Admin Trade Name Freq PRN Reason Stop Dose Admin Hydromorphone HCl 0.5 mg 12/27/16 18:53 Dilaudid IVPUSH 12/27/16 18:54 ONETIME ONE - Radiology Interpretation Free Text/Narrative:: X-ray left hip/pelvis: Basicervical fracture of the left hip with slight valgus angulation. No sign of dislocation. Prominent vascular calcifications as described above. X-ray left femur: Prominent atherosclerotic arterial calcifications in the femoral and popliteal arteries. No sign of femoral fracture.See rad report. Departure - Departure Time of Disposition: 18:49 Disposition: DC/Tfer to Acute Hospital 02 Condition: Fair Clinical Impression: Fracture of left hip, Hyperglycemia - Discharge Information Forms: ED Department Discharge, Interfacility Transfer EMTALA - My Orders Last 24 Hours: My Active Orders 12/27/16 17:10 Peripheral IV Care [RC] . DIRECTED Sodium Chloride 0.9% [Saline Flush] 10 ml FLUSH ASDIRECTED PRN Peripheral IV Insertion Adult [OM.PC] Stat 12/27/16 17:11 Urinary Catheter Assessment [RC] ASDIRECTED 12/27/16 17:15 [place] Catheter Insertion [Insert Urinary Catheter] [OM.PC] Q24H - Assessment/Plan Last 24 Hours: My Active Orders 12/27/16 17:10 Peripheral IV Care [RC] . DIRECTED Sodium Chloride 0.9% [Saline Flush] 10 ml FLUSH ASDIRECTED PRN Peripheral IV Insertion Adult [OM.PC] Stat 12/27/16 17:11 Urinary Catheter Assessment [RC] ASDIRECTED 12/27/16 17:15 [place] Catheter Insertion [Insert Urinary Catheter] [OM.PC] Q24H I have read and agree with the documentation that has been completed regarding this visit. By signing this record, I attest that the documentation was completed in my physical presence and is an accurate record of the encounter.
== END 2016-12-27 19:32 ==
LOC: DL.ED 17:00
DX: S72.002A Fracture of unspecified part of neck of left femur, initial encounter for closed fracture (principal); E78.00 Pure hypercholesterolemia, unspecified; K21.9 Gastro-esophageal reflux disease without esophagitis; Z79.4 Long term (current) use of insulin; Z87.891 Personal history of nicotine dependence; E11.65 Type 2 diabetes mellitus with hyperglycemia; Z88.5 Allergy status to narcotic agent; Z88.8 Allergy status to other drugs, medicaments and biological substances; Z79.899 Other long term (current) drug therapy; Y92.009 Unspecified place in unspecified non-institutional (private) residence as the place of occurrence of the external cause; W19.XXXA Unspecified fall, initial encounter
CPT/HCPCS: 36415; 51702; 73502; 73552; 80053; 81001; 85025; 96374; 99285; J1170; J7050

== ENCOUNTER 2017-01-10 14:54 | Emergency (ER) | payer MEDICAID, OTHER ==
[2017-01-10 15:12] VITALS: BP 187/81
--- NOTE | 2017-01-10 15:30 | EDM.PDOC ---
ED HPI GENERAL MEDICAL PROBLEM - General Chief Complaint: Cardiovascular Problem Stated Complaint: IN BY AMBULANCE ELEVATED BLOOD PRESSURE Time Seen by Provider: 01/10/17 15:17 Source of Information: Reports: Patient, EMS, EMS Notes Reviewed, RN, RN Notes Reviewed History Limitations: Reports: No Limitations - History of Present Illness INITIAL COMMENTS - FREE TEXT/NARRATIVE: Pt presents to the ER per [facility]. Pt states a home health nurse came to her home and told her that she had elevated Blood sugar and elevated blood pressure. She states she has been out of both her HTN medication as well as her insulin for some time. She states she has some hip pain from her recent hip surgery. She denies any further problems. Onset: Today Improves with: Reports: None Worsens with: Reports: None Associated Symptoms: Reports: No Other Symptoms Left Hip Pain Score (Numeric/FACES): 8 - Related Data Allergies Allergy/AdvReac Type Severity Reaction Status Date / Time capsaicin Allergy UNKNOWN Verified 08/01/16 14:34 codeine Allergy Nausea and Verified 08/01/16 14:34 Vomiting ibuprofen Allergy Itching Verified 08/01/16 14:34 pregabalin Allergy CONTACT Verified 08/01/16 14:34 DERMATITIS ALLERGY Home Meds: Home Meds ARIPiprazole [Aripiprazole] 10 mg PO BID 07/19/16 [History] Albuterol Sulfate [Ventolin Hfa] 1 puff IH Q6H PRN 07/19/16 [History] Aspirin 81 mg PO BRK 07/19/16 [History] Carvedilol 12.5 mg PO BID 07/19/16 [History] Ergocalciferol (Vitamin D2) [Vitamin D2] 50,000 units PO Q7D 07/19/16 [History] FLUoxetine HCl [Prozac] 20 mg PO DAILY 07/19/16 [History] Gabapentin [Neurontin] 300 mg PO TID 07/19/16 [History] Insulin Detemir [Levemir] 30 unit SUBCUT BEDTIME 07/19/16 [History] Lisinopril 2.5 mg PO DAILY 07/19/16 [History] Mometasone/Formoterol [Dulera 100-5 MCG] 1 puff IN BID 07/19/16 [History] Simvastatin [Zocor] 20 mg PO BEDTIME 07/19/16 [History] Ticagrelor [Brilinta] 90 mg PO BID 07/19/16 [History] Tiotropium [Spiriva HandiHaler] 18 mcg IN DAILY 07/19/16 [History] Tolterodine [Detrol] 2 mg PO BID 07/19/16 [History] Bumetanide [Bumex] 1 mg PO .QPM tablet 08/03/16 [Rx] Bumetanide [Bumex] 2 mg PO DAILY tablet 08/03/16 [Rx] Past Medical History HEENT History: Reports: Glaucoma, Impaired Vision Other HEENT History: 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 Cardiovascular History: Reports: High Cholesterol, Hypertension, [place], Stents Respiratory History: Reports: Asthma, COPD, SOB Gastrointestinal History: Reports: Gastritis, GERD, Hemorrhoids Genitourinary History: Reports: 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, Other (See Below) Other OB/BYN History: hysterectomy Musculoskeletal History: Reports: Arthritis, Back Pain, Chronic, Fibromyalgia Neurological History: Reports: Migraines Other Neuro History: hx of migraines; states she doesn't get them anymore Psychiatric History: Reports: None Endocrine/Metabolic History: Reports: Diabetes, Type II Hematologic History: Reports: None Immunologic History: Reports: None Oncologic (Cancer) History: Reports: None Dermatologic History: Reports: Cellulitis, Other (See Below) Other Dermatologic History: poor circulation in legs - Infectious Disease History Infectious Disease History: Reports: None - Past Surgical History Head Surgeries/Procedures: Reports: None HEENT Surgical History: Reports: Cataract Surgery, Eye Surgery, Laser Surgery Cardiovascular Surgical History: Reports: Coronary Artery Stent GI Surgical History: Reports: None Neurological Surgical History: Reports: None Musculoskeletal Surgical History: Reports: Other (See Below) Other Musculoskeletal Surgeries/Procedures:: Hip Fracture Social & Family History - Family History Family Medical History: Noncontributory HEENT: Reports: None Cardiac: Reports: None Respiratory: Reports: None GI: Reports: None OBGYN: Reports: None Musculoskeletal: Reports: Fibromyalgia Other Musculoskeletal Family History: cousin Neurological: Reports: None Psychiatric: Reports: None Oncologic: Reports: Breast Other Oncologic Family History: Aunt had breast cancer - Tobacco Use Smoking Status *Q: Current Every Day Smoker Years of Tobacco use: 40 Packs/Tins Daily: 1 Used Tobacco, but Quit: No Month Tobacco Last Used: mar Second Hand Smoke Exposure: Yes - Caffeine Use Caffeine Use: Reports: Coffee, Soda, Tea Caffeine Use Comment: 4 cups in morning and 1 in the evening - Alcohol Use Days Per Week of Alcohol Use: 0 - Recreational Drug Use Recreational Drug Use: No Recreational Drug Type: Reports: Marijuana/Hashish Recreational Drug Use Frequency: Socially - Living Situation & Occupation Living situation: Reports: Other (homeless) Occupation: Unemployed ED ROS GENERAL - Review of Systems Review Of Systems: ROS reveals no pertinent complaints other than HPI. ED EXAM, GENERAL - Physical Exam Exam: See Below Exam Limited By: No Limitations General Appearance: Alert, WD/WN, No Apparent Distress Eye Exam: Right Eye: Normal Inspection, Left Eye: Abnormal Pupil, Other ( Cataract) Ears: Normal External Exam, Hearing Grossly Normal Nose: Normal Inspection Throat/Mouth: Normal Inspection, Normal Voice, No Airway Compromise Head: Atraumatic, Normocephalic Neck: Normal Inspection, Supple, Non-Tender, Full Range of Motion Respiratory/Chest: No Respiratory Distress, Lungs Clear, Normal Breath Sounds, No Accessory Muscle Use, Chest Non-Tender Cardiovascular: Normal Peripheral Pulses, Regular Rate, Rhythm, No Edema, No Gallop, No JVD, No Murmur, No Rub Peripheral Pulses: 2+: Radial (L), Radial (R) GI/Abdominal: Normal Bowel Sounds, Soft, Non-Tender, No Organomegaly, No Distention, No Abnormal Bruit, No Mass (Female) Exam: Deferred Rectal (Female) Exam: Deferred Back Exam: Normal Inspection, Full Range of Motion Extremities: Normal Inspection, Normal Range of Motion, Non-Tender, No Pedal Edema, Normal Capillary Refill Neurological: Alert, Oriented, Normal Cognition, No Motor/Sensory Deficits Psychiatric: Normal Affect, Normal Mood Skin Exam: Warm, Dry, Intact, Normal Color, No Rash Lymphatic: No Adenopathy Course - Vital Signs Last Recorded V/S: Last Vital Signs Temp 98.2 F 01/10/17 15:11 Pulse 96 01/10/17 15:11 Resp 16 01/10/17 15:11 BP 187/81 H 01/10/17 15:11 Pulse Ox 96 01/10/17 15:11 - Orders/Labs/Meds Orders: Active Orders 24 hr Category Date Time Status POC Glucose [Blood Glucose Check, Bedside] [RC] ONETIME Care 01/10/17 15:24 Active Peripheral IV Care [RC] . DIRECTED Care 01/10/17 16:34 Active UA W/MICROSCOPIC [URIN] Stat Lab 01/10/17 15:40 Uncollected Sodium Chloride 0.9% [Saline Flush] Med 01/10/17 16:34 Active 10 ml FLUSH ASDIRECTED PRN Peripheral IV Insertion Adult [OM.PC] Stat Oth 01/10/17 16:34 Ordered Medication Orders Sodium Chloride (Saline Flush) 10 ml FLUSH ASDIRECTED PRN PRN Reason: Keep Vein Open Last Admin: 01/10/17 17:09 Dose: 10 ml Labs: Laboratory Tests 01/10/17 01/10/17 01/10/17 Range/Units 15:30 15:48 15:48 WBC 6.9 (5.0-10.0) 10^3/uL RBC 3.77 L (4.2-5.4) 10^6/uL Hgb 11.0 L (12.0-16.0) g/dL Hct 34.6 L (37.0-47.0) % MCV 91.8 (80-100) fL MCH 29.2 (27.0-34.0) pg MCHC 31.8 L (33.0-35.0) g/dL Plt Count 321 (150-450) 10^3/uL Neut % (Auto) 69.3 (42.2-75.2) % Lymph % (Auto) 23.1 (20.5-50.1) % [place] % (Auto) 5.5 (2-8) % Eos % (Auto) 1.5 (1.0-3.0) % Baso % (Auto) 0.6 (0.0-1.0) % Sodium 138 (135-145) mmol/L Potassium 2.7 L (3.6-5.0) mmol/L Chloride 99 L (101-111) mmol/L Carbon Dioxide 30.0 D (21.0-31.0) mmol/L Anion Gap 11.7 BUN 18 (7-18) mg/dL Creatinine 1.7 H (0.6-1.3) mg/dL Est Cr Clr Drug Dosing 34.65 mL/min Estimated GFR (MDRD) 31 BUN/Creatinine Ratio 10.58 Glucose 179 H (74-105) mg/dL POC Glucose 176 H (70-105) mg/dl Calcium 7.4 L (8.4-10.2) mg/dl Total Bilirubin 0.2 (0.2-1.0) mg/dL AST 23 (10-42) IU/L ALT 10 (10-60) IU/L Alkaline Phosphatase 118 (42-121) IU/L Total Protein 5.7 L (6.7-8.2) g/dl Albumin 1.9 L (3.2-5.5) g/dl Globulin 3.8 Albumin/Globulin Ratio 0.50 Meds: Medications Generic Name Dose Route Start Last Admin Trade Name Freq PRN Reason Stop Dose Admin Sodium Chloride 10 ml 01/10/17 16:34 01/10/17 17:09 Saline Flush FLUSH 10 ml ASDIRECTED PRN Administration Keep Vein Open Discontinued Medications Generic Name Dose Route Start Last Admin Trade Name Cathy PRN Reason Stop Dose Admin Potassium Chloride 10 meq/ 100 mls @ 100 mls/hr 01/10/17 16:33 01/10/17 17:05 Premix IV 01/10/17 17:32 100 mls/hr ONETIME ONE Administration Sodium Chloride 1,000 mls @ 999 mls/hr 01/10/17 16:34 01/10/17 17:10 Normal Saline IV 01/10/17 17:34 999 mls/hr .BOLUS ONE Administration Potassium Chloride 40 meq 01/10/17 16:33 01/10/17 17:01 Klor-Con 10 PO 01/10/17 16:34 40 meq ONETIME ONE Administration Departure - Departure Time of Disposition: 18:22 Disposition: Home, Self-Care 01 Condition: Fair Clinical Impression: Diabetes mellitus type 2, insulin dependent, Hyperglycemia, Hypokalemia Hypertensive heart disease Qualifiers: Heart failure presence: without heart failure Qualified Code(s): I11.9 - Hypertensive heart disease without heart failure Instructions: Type 2 Diabetes Mellitus, Adult, Hyperglycemia, [id number], Hypertension, [id number], Blood Glucose Monitoring, Adult, Potassium Content of Foods, Hypokalemia Forms: ED Department Discharge Additional Instructions: Follow up with your primary care provider to have medications refilled RX: Potassium - My Orders Last 24 Hours: My Active Orders 01/10/17 15:24 POC Glucose [Blood Glucose Check, Bedside] [RC] ONETIME 01/10/17 15:40 UA W/MICROSCOPIC [URIN] Stat 01/10/17 16:34 Peripheral IV Care [RC] . DIRECTED Sodium Chloride 0.9% [Saline Flush] 10 ml FLUSH ASDIRECTED PRN Peripheral IV Insertion Adult [OM.PC] Stat - Assessment/Plan Last 24 Hours: My Active Orders 01/10/17 15:24 POC Glucose [Blood Glucose Check, Bedside] [RC] ONETIME 01/10/17 15:40 UA W/MICROSCOPIC [URIN] Stat 01/10/17 16:34 Peripheral IV Care [RC] . DIRECTED Sodium Chloride 0.9% [Saline Flush] 10 ml FLUSH ASDIRECTED PRN Peripheral IV Insertion Adult [OM.PC] Stat
[2017-01-10] MEDS ORDERED: Potassium Chloride 10 MEQ in Premix Bag 1 BAG IV ONE (16:33)
[2017-01-10] MEDS ORDERED: Potassium Chloride 10 MEQ Tab.ER PO ONE (16:33)
[2017-01-10] MEDS ORDERED: Sodium Chloride 0.9% 10 ML Syringe FLUSH PRN (16:34)
[2017-01-10] MEDS ORDERED: Sodium Chloride 0.9% 1,000 ML IV ONE (16:34)
== END 2017-01-10 18:25 | disposition home or self-care (01) ==
LOC: DL.ED 14:54
DX: I11.9 Hypertensive heart disease without heart failure (principal); E11.65 Type 2 diabetes mellitus with hyperglycemia; E87.6 Hypokalemia; E78.00 Pure hypercholesterolemia, unspecified; Z79.4 Long term (current) use of insulin; J44.9 Chronic obstructive pulmonary disease, unspecified; K21.9 Gastro-esophageal reflux disease without esophagitis; F17.210 Nicotine dependence, cigarettes, uncomplicated; Z79.82 Long term (current) use of aspirin; Z79.899 Other long term (current) drug therapy; Z88.5 Allergy status to narcotic agent; Z88.6 Allergy status to analgesic agent; Z88.8 Allergy status to other drugs, medicaments and biological substances; Z91.018 Allergy to other foods
CPT/HCPCS: 36415; 80053; 82962; 85025; 96365; 99284; A9270; J3480; J7030; J7050

== ENCOUNTER 2017-04-06 16:07 | Inpatient (IN) | payer MEDICAID ==
--- NOTE | 2017-04-06 16:32 | CR ---
Clinical history: 62-year-old female shortness of breath. Interpretation: Markedly abnormal. Asymmetric dense new pneumonic like consolidation with volume loss right upper and right mid lung sin ce 01 August 2016. Clinical pneumonia? (Pulmonary embolism/infarct are differential consideration this patient who also appears to have smal l dependent pleural effusions) Normal cardiac silhouette without cephalization or alveolar fluid, on the left.
[2017-04-06] MEDS: Albuterol/Ipratropium 3.0-0.5 MG/3 ML Neb Soln NEB ONE ×2 (16:50→20:17)
--- NOTE | 2017-04-06 16:54 | EDM.PDOC ---
ED HPI GENERAL MEDICAL PROBLEM - General Chief Complaint: Respiratory Problem Stated Complaint: IN BY AMBULANCE Time Seen by Provider: 04/06/17 16:42 Source of Information: Reports: Patient History Limitations: Reports: Respiratory Distress - History of Present Illness INITIAL COMMENTS - FREE TEXT/NARRATIVE: This 62 yo female patient reports to the ED via [facility] due to increased shortness of breath. The patient reports she started to feel sick last week. The patient also stopped taking her medication last week because it made her sick. The patient has a history of COPD and CHF. Duration: Day(s):, Constant, Getting Worse Location: Reports: Chest Quality: Reports: Ache, Dull Severity: Moderate Improves with: Reports: None Worsens with: Reports: None Associated Symptoms: Reports: cough w sputum, Fever/Chills, Shortness of Breath , Weakness - Related Data Allergies Allergy/AdvReac Type Severity Reaction Status Date / Time capsaicin Allergy UNKNOWN Verified 08/01/16 14:34 codeine Allergy Nausea and Verified 08/01/16 14:34 Vomiting ibuprofen Allergy Itching Verified 08/01/16 14:34 pregabalin Allergy CONTACT Verified 08/01/16 14:34 DERMATITIS ALLERGY Home Meds: Home Meds ARIPiprazole [Aripiprazole] 10 mg PO BID 07/19/16 [History] Albuterol Sulfate [Ventolin Hfa] 1 puff IH Q6H PRN 07/19/16 [History] Aspirin 81 mg PO BRK 07/19/16 [History] Carvedilol 12.5 mg PO BID 07/19/16 [History] Ergocalciferol (Vitamin D2) [Vitamin D2] 50,000 units PO Q7D 07/19/16 [History] FLUoxetine HCl [Prozac] 20 mg PO DAILY 07/19/16 [History] Gabapentin [Neurontin] 300 mg PO TID 07/19/16 [History] Insulin Detemir [Levemir] 30 unit SUBCUT BEDTIME 07/19/16 [History] Lisinopril 2.5 mg PO DAILY 07/19/16 [History] Mometasone/Formoterol [Dulera 100-5 MCG] 1 puff IN BID 07/19/16 [History] Simvastatin [Zocor] 20 mg PO BEDTIME 07/19/16 [History] Ticagrelor [Brilinta] 90 mg PO BID 07/19/16 [History] Tiotropium [Spiriva HandiHaler] 18 mcg IN DAILY 07/19/16 [History] Tolterodine [Detrol] 2 mg PO BID 07/19/16 [History] Bumetanide [Bumex] 1 mg PO .QPM tablet 08/03/16 [Rx] Bumetanide [Bumex] 2 mg PO DAILY tablet 08/03/16 [Rx] Past Medical History HEENT History: Reports: Glaucoma, Impaired Vision Other HEENT History: 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 Cardiovascular History: Reports: High Cholesterol, Hypertension, [place], Stents Respiratory History: Reports: Asthma, COPD, SOB Gastrointestinal History: Reports: Gastritis, GERD, Hemorrhoids Genitourinary History: Reports: 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, Other (See Below) Other OB/BYN History: hysterectomy Musculoskeletal History: Reports: Arthritis, Back Pain, Chronic, Fibromyalgia Neurological History: Reports: Migraines Other Neuro History: hx of migraines; states she doesn't get them anymore Psychiatric History: Reports: None, Bipolar Endocrine/Metabolic History: Reports: Diabetes, Type II Hematologic History: Reports: None Immunologic History: Reports: None Oncologic (Cancer) History: Reports: None Dermatologic History: Reports: Cellulitis, Other (See Below) Other Dermatologic History: poor circulation in legs - Infectious Disease History Infectious Disease History: Reports: None - Past Surgical History Head Surgeries/Procedures: Reports: None HEENT Surgical History: Reports: Cataract Surgery, Eye Surgery, Laser Surgery Cardiovascular Surgical History: Reports: Coronary Artery Stent GI Surgical History: Reports: None Female Surgical History: Reports: Hysterectomy Neurological Surgical History: Reports: None Musculoskeletal Surgical History: Reports: Other (See Below) Other Musculoskeletal Surgeries/Procedures:: Hip Fracture Social & Family History - Family History Family Medical History: Noncontributory HEENT: Reports: None Cardiac: Reports: None Respiratory: Reports: None GI: Reports: None OBGYN: Reports: None Musculoskeletal: Reports: Fibromyalgia Other Musculoskeletal Family History: cousin Neurological: Reports: None Psychiatric: Reports: None Oncologic: Reports: Breast Other Oncologic Family History: Aunt had breast cancer - Tobacco Use Smoking Status *Q: Current Every Day Smoker Years of Tobacco use: 40 Packs/Tins Daily: 0.5 Used Tobacco, but Quit: No Month Tobacco Last Used: mar Second Hand Smoke Exposure: Yes - Caffeine Use Caffeine Use: Reports: Coffee, Soda, Tea Caffeine Use Comment: 4 cups in morning and 1 in the evening - Alcohol Use Days Per Week of Alcohol Use: 0 - Recreational Drug Use Recreational Drug Use: No Recreational Drug Type: Reports: Marijuana/Hashish Other Recreational Drug Type: Pt admits to having smoked pot 2 weeks ago Recreational Drug Use Frequency: Socially - Living Situation & Occupation Living situation: Reports: Other (homeless) Occupation: Unemployed ED ROS GENERAL - Review of Systems Review Of Systems: ROS reveals no pertinent complaints other than HPI. ED EXAM, GENERAL - Physical Exam Exam: See Below Exam Limited By: No Limitations General Appearance: Alert, WD/WN, Severe Distress, Thin Eye Exam: Right Eye: Normal Inspection, PERRL Ears: Normal External Exam, Normal Canal, Hearing Grossly Normal, Normal TMs Nose: Normal Inspection, Normal Mucosa, No Blood Throat/Mouth: Normal Inspection, Normal Lips, Normal Teeth, Normal Gums, Normal Oropharynx, Normal Voice, No Airway Compromise Head: Atraumatic, Normocephalic Neck: Normal Inspection, Supple, Non-Tender, Full Range of Motion Respiratory/Chest: Decreased Breath Sounds (right side), Rhonchi (right side) Cardiovascular: Normal Peripheral Pulses, Regular Rate, Rhythm, No Edema GI/Abdominal: Normal Bowel Sounds, Soft, Non-Tender, No Organomegaly, No Distention, No Abnormal Bruit, No Mass (Female) Exam: Deferred Rectal (Female) Exam: Deferred Back Exam: Normal Inspection, Full Range of Motion, NT Extremities: Normal Inspection, Normal Range of Motion, Non-Tender, Normal Capillary Refill, No Pedal Edema Neurological: Alert, Oriented, CN II-XII Intact, Normal Cognition, Normal Gait, Normal Reflexes, No Motor/Sensory Deficits Psychiatric: Normal Affect, Normal Mood Skin Exam: Warm, Dry, Intact, Normal Color, No Rash Lymphatic: No Adenopathy Course - Vital Signs Last Recorded V/S: Last Vital Signs Temp 36.8 C 04/06/17 16:25 Pulse 100 04/06/17 16:51 Resp 36 H 04/06/17 16:25 BP 154/92 H 04/06/17 16:25 Pulse Ox 94 L 04/06/17 16:25 - Orders/Labs/Meds Orders: Active Orders 24 hr Category Date Time Status RT Aerosol Therapy [RC] ASDIRECTED Care 04/06/17 16:40 Ordered CULTURE BLOOD [BC] Stat Lab 04/06/17 16:13 Ordered CULTURE BLOOD [BC] Stat Lab 04/06/17 16:13 Ordered Azithromycin [Zithromax] 500 mg Med 04/06/17 17:15 Ordered Sodium Chloride 0.9% [Normal Saline] 250 ml IV ONETIME Sodium Chloride 0.9% @ 125 MLS/HR (1000ml) Med 04/06/17 17:15 Ordered Sodium Chloride 0.9% [Normal Saline] 1,000 ml IV ASDIRECTED Blood Culture x2 Reflex Set [OM.PC] Stat Oth 04/06/17 16:13 Ordered Medication Orders Sodium Chloride (Normal Saline) 1,000 mls @ 125 mls/hr IV ASDIRECTED ELFEGO Azithromycin 500 mg/ Sodium (Chloride) 250 mls @ 250 mls/hr IV ONETIME ONE Stop: 04/06/17 18:14 Labs: Laboratory Tests 04/06/17 04/06/17 04/06/17 Range/Units 16:22 16:29 16:29 WBC 20.6 H (5.0-10.0) 10^3/uL RBC 3.55 L (4.2-5.4) 10^6/uL Hgb 10.7 L (12.0-16.0) g/dL Hct 31.5 L (37.0-47.0) % MCV 88.7 D (80-100) fL MCH 30.1 (27.0-34.0) pg MCHC 34.0 (33.0-35.0) g/dL Plt Count 522 H D (150-450) 10^3/uL Neut % (Auto) 90.7 H (42.2-75.2) % Lymph % (Auto) 5.4 L (20.5-50.1) % Lucas % (Auto) 3.8 (2-8) % Eos % (Auto) 0.1 L (1.0-3.0) % Baso % (Auto) 0.0 (0.0-1.0) % Add Manual Diff Yes Neutrophils % (Manual) 84 H (42-75) % Band Neutrophils % 8 % Lymphocytes % (Manual) 6 L (20-50) % Monocytes % (Manual) 2 (2-8) % Atypical Lymphocytes Few Vacuolated Monocytes 1+ slight Toxic Granulation 1+ slight Platelet Estimate Increased Sodium 128 L D (135-145) mmol/L Potassium 3.0 L (3.6-5.0) mmol/L Chloride 99 L (101-111) mmol/L Carbon Dioxide 18.0 L D (21.0-31.0) mmol/L Anion Gap 14.0 BUN 64 H D (7-18) mg/dL Creatinine 2.7 H (0.6-1.3) mg/dL Est Cr Clr Drug Dosing 18.33 mL/min Estimated GFR (MDRD) 18 BUN/Creatinine Ratio 23.70 Glucose 164 H (74-105) mg/dL Lactic Acid (0.5-2.2) mmol/L Calcium 7.4 L (8.4-10.2) mg/dl Total Bilirubin 0.3 (0.2-1.0) mg/dL AST 27 (10-42) IU/L ALT 12 (10-60) IU/L Alkaline Phosphatase 115 (42-121) IU/L B-Natriuretic Peptide (0-100) pg/ml Total Protein 6.4 L (6.7-8.2) g/dl Albumin 1.0 L (3.2-5.5) g/dl Globulin 5.4 Albumin/Globulin Ratio 0.19 Urine Color Yellow (YELLOW) Urine Appearance Slightly cloudy (CLEAR) Urine pH 5.5 (5.0-9.0) Ur Specific [place] 1.015 (1.005-1.030) Urine Protein >=300 H (NEGATIVE) Urine Glucose (UA) 100 H (NEGATIVE) Urine Ketones Negative (NEGATIVE) Urine Occult Blood Small H (NEGATIVE) Urine Nitrite Negative (NEGATIVE) Urine Bilirubin Negative (NEGATIVE) Urine Urobilinogen 0.2 (0.2-1.0) mg/dL Ur Leukocyte Esterase Negative (NEGATIVE) Urine RBC 10-20 H /HPF Urine WBC 5-10 H (0-5/HPF) /HPF Ur Epithelial Cells Moderate H /HPF Amorphous Sediment Moderate H (0/HPF) /HPF Urine Bacteria Many H (0-FEW/HPF) /HPF Hyaline Casts Few H /LPF Urine Opiates Screen (NEGATIVE) Ur Oxycodone Screen (NEGATIVE) Urine Methadone Screen (NEGATIVE) Ur Barbiturates Screen (NEGATIVE) U Tricyclic Antidepress (NEGATIVE) Ur Phencyclidine Scrn (NEGATIVE) Ur Amphetamine Screen (NEGATIVE) U Methamphetamines Scrn (NEGATIVE) Urine MDMA Screen (NEGATIVE) U Benzodiazepines Scrn (NEGATIVE) Urine Cocaine Screen (NEGATIVE) U Marijuana (THC) Screen (NEGATIVE) 04/06/17 04/06/17 04/06/17 Range/Units 16:29 16:29 16:31 WBC (5.0-10.0) 10^3/uL RBC (4.2-5.4) 10^6/uL Hgb (12.0-16.0) g/dL Hct (37.0-47.0) % MCV (80-100) fL MCH (27.0-34.0) pg MCHC (33.0-35.0) g/dL Plt Count (150-450) 10^3/uL Neut % (Auto) (42.2-75.2) % Lymph % (Auto) (20.5-50.1) % Lucas % (Auto) (2-8) % Eos % (Auto) (1.0-3.0) % Baso % (Auto) (0.0-1.0) % Add Manual Diff Neutrophils % (Manual) (42-75) % Band Neutrophils % % Lymphocytes % (Manual) (20-50) % Monocytes % (Manual) (2-8) % Atypical Lymphocytes Vacuolated Monocytes Toxic Granulation Platelet Estimate Sodium (135-145) mmol/L Potassium (3.6-5.0) mmol/L Chloride (101-111) mmol/L Carbon Dioxide (21.0-31.0) mmol/L Anion Gap BUN (7-18) mg/dL Creatinine (0.6-1.3) mg/dL Est Cr Clr Drug Dosing mL/min Estimated GFR (MDRD) BUN/Creatinine Ratio Glucose (74-105) mg/dL Lactic Acid 1.3 (0.5-2.2) mmol/L Calcium (8.4-10.2) mg/dl Total Bilirubin (0.2-1.0) mg/dL AST (10-42) IU/L ALT (10-60) IU/L Alkaline Phosphatase (42-121) IU/L B-Natriuretic Peptide 2090 H (0-100) pg/ml Total Protein (6.7-8.2) g/dl Albumin (3.2-5.5) g/dl Globulin Albumin/Globulin Ratio Urine Color (YELLOW) Urine Appearance (CLEAR) Urine pH (5.0-9.0) Ur Specific [place] (1.005-1.030) Urine Protein (NEGATIVE) Urine Glucose (UA) (NEGATIVE) Urine Ketones (NEGATIVE) Urine Occult Blood (NEGATIVE) Urine Nitrite (NEGATIVE) Urine Bilirubin (NEGATIVE) Urine Urobilinogen (0.2-1.0) mg/dL Ur Leukocyte Esterase (NEGATIVE) Urine RBC /HPF Urine WBC (0-5/HPF) /HPF Ur Epithelial Cells /HPF Amorphous Sediment (0/HPF) /HPF Urine Bacteria (0-FEW/HPF) /HPF Hyaline Casts /LPF Urine Opiates Screen Negative (NEGATIVE) Ur Oxycodone Screen Negative (NEGATIVE) Urine Methadone Screen Negative (NEGATIVE) Ur Barbiturates Screen Negative (NEGATIVE) U Tricyclic Antidepress Negative (NEGATIVE) Ur Phencyclidine Scrn Negative (NEGATIVE) Ur Amphetamine Screen Negative (NEGATIVE) U Methamphetamines Scrn Positive H (NEGATIVE) Urine MDMA Screen Negative (NEGATIVE) U Benzodiazepines Scrn Negative (NEGATIVE) Urine Cocaine Screen Negative (NEGATIVE) U Marijuana (THC) Screen Positive H (NEGATIVE) Meds: Medications Generic Name Dose Route Start Last Admin Trade Name Freq PRN Reason Stop Dose Admin Sodium Chloride 1,000 mls @ 125 mls/hr 04/06/17 17:15 Normal Saline IV ASDIRECTED ELFEGO Azithromycin 500 mg/ Sodium 250 mls @ 250 mls/hr 04/06/17 17:15 Chloride IV 04/06/17 18:14 ONETIME ONE Discontinued Medications Generic Name Dose Route Start Last Admin Trade Name Freq PRN Reason Stop Dose Admin Albuterol/Ipratropium 3 ml 04/06/17 16:40 04/06/17 16:50 Duoneb 3.0-0.5 Mg/3 Ml NEB 04/06/17 16:41 3 ml ONETIME ONE Administration Ceftriaxone Sodium 1 gm 04/06/17 17:15 Rocephin IVPUSH 04/06/17 17:16 ONETIME ONE Departure - Departure Time of Disposition: 17:17 Disposition: Admitted As Inpatient 68 Clinical Impression: Pneumonia Qualifiers: Pneumonia type: due to unspecified organism Laterality: right Lung location: unspecified part of lung Qualified Code(s): J18.9 - Pneumonia, unspecified organism - Discharge Information Forms: ED Department Discharge Care Plan Goals: Discussed the examination, lab and x-ray results with Dr. Garcia. Dr. Garcia accepted the patient for continued evaluation and management as an inpatient at [facility]. - My Orders Last 24 Hours: My Active Orders 04/06/17 16:13 CULTURE BLOOD [BC] Stat CULTURE BLOOD [BC] Stat Blood Culture x2 Reflex Set [OM.PC] Stat 04/06/17 16:40 RT Aerosol Therapy [RC] ASDIRECTED 04/06/17 17:15 Azithromycin [Zithromax] 500 mg Sodium Chloride 0.9% [Normal Saline] 250 ml IV ONETIME Sodium Chloride 0.9% @ 125 MLS/HR (1000ml) Sodium Chloride 0.9% [Normal Saline] 1,000 ml IV ASDIRECTED - Assessment/Plan Last 24 Hours: My Active Orders 04/06/17 16:13 CULTURE BLOOD [BC] Stat CULTURE BLOOD [BC] Stat Blood Culture x2 Reflex Set [OM.PC] Stat 04/06/17 16:40 RT Aerosol Therapy [RC] ASDIRECTED 04/06/17 17:15 Azithromycin [Zithromax] 500 mg Sodium Chloride 0.9% [Normal Saline] 250 ml IV ONETIME Sodium Chloride 0.9% @ 125 MLS/HR (1000ml) Sodium Chloride 0.9% [Normal Saline] 1,000 ml IV ASDIRECTED
[2017-04-06] MEDS: cefTRIAXone 1 GM Vial IVPUSH ONE (17:37)
[2017-04-06] MEDS: Sodium Chloride 0.9% 1,000 ML IV SCH (17:37)
[2017-04-06] MEDS: Azithromycin 500 MG in Sodium Chloride 0.9% 250 ML IV ONE (17:39)
[2017-04-06] MEDS ORDERED: Albuterol/Ipratropium 3.0-0.5 MG/3 ML Neb Soln ONE (20:10)
--- NOTE | 2017-04-06 20:26 | PCM.HP ---
H&P History of Present Illness - General Date of Service: 04/06/17 Admit Problem/Dx: Pneumonia, respiratory distress Source of Information: Patient History Limitations: Reports: No Limitations - History of Present Illness Initial Comments - Free Text/Narative: 62-year-old female with past medical history of congestive heart failure, COPD, asthma, substance abuse presented to the emergency room for having cough and shortness breaths, chills, sweats but no fever since last Monday. when I accepted the patient from the ER provider. It was not reported to me that patient in acute distress. However upon coming to the floor and evaluating the patient. She appeared in respiratory distress and she said she is feeling tired from breathing. Patient has not taking any pf her medications since last Monday. She is able to say short sentences and answer questions. She denies headache, nausea, vomiting, chest pain, abdominal pain, diarrhea, urinary symptoms,which is edema, unilateral weakness/numbness has only other symptoms or concerns. Upon arrival to the floor nurses reported to me that patient had respiratory rate of 60. When I examined the patient and her respiratory rate was 40. Blood pressure 154/92. Her sats continued to be above 90 on room air. She states she is getting tired. She has dementia and lung sounds bilaterally. Heart rate 100-105. Chest x-ray reported "asymmetric dense new pneumonic-like consolidation with volume loss right upper and right mid lung since 01 August 2016 " WBC 20.6 with left shift. Platelet 522. Sodium 128. Potassium is 3.0. Carbon dioxide is 18.0. B UN 64. Creatinine 2.7. Blood glucose 164. Lactic acid 1.3. Calcium 7.4. BNP 2090. Albumin 1.0. Urine drug screen tested positive for meth and marijuana. Patient stated that last time she is just was 2 weeks ago. In emergency room patient received DuoNeb once. Azithromycin 500 mg IV. Rocephin 1 g IV. And was started on normal saline at 1 25 mL per hour. Blood cultures were ordered. I ordered DuoNeb. I spoke to Dr. Francisco at [facility] who kindly accepted the patient to the ICU service. He recommended intubation before transferring. Patient was intubated and transferred by helicopter - Related Data Allergies/Adverse Reactions: Allergies Allergy/AdvReac Type Severity Reaction Status Date / Time capsaicin Allergy UNKNOWN Verified 04/06/17 19:27 codeine Allergy Nausea and Verified 04/06/17 19:27 Vomiting ibuprofen Allergy Itching Verified 04/06/17 19:27 pregabalin Allergy CONTACT Verified 04/06/17 19:27 DERMATITIS ALLERGY Home Medications: Home Meds Carvedilol 12.5 mg PO BID 07/19/16 [History] Ergocalciferol (Vitamin D2) [Vitamin D2] 50,000 units PO Q7D 07/19/16 [History] Insulin Detemir [Levemir] 32 unit SUBCUT BEDTIME 07/19/16 [History] Mometasone/Formoterol [Dulera 100-5 MCG] 2 puff IN DAILY 07/19/16 [History] Simvastatin [Zocor] 10 mg PO BEDTIME 07/19/16 [History] Ticagrelor [Brilinta] 90 mg PO BID 07/19/16 [History] Tiotropium [Spiriva HandiHaler] 18 mcg IN DAILY 07/19/16 [History] Bumetanide [Bumex] 1 mg PO .QPM tablet 08/03/16 [Rx] Bumetanide [Bumex] 2 mg PO DAILY tablet 08/03/16 [Rx] Acetaminophen [Pain Reliever] 500 mg PO Q8H PRN 04/06/17 [History] Albuterol [Proventil Neb Soln] 0.63 mg NEB Q4HRRT 04/06/17 [History] Aspirin 325 mg PO DAILY 04/06/17 [History] Fludrocortisone [Fludrocortisone Acetate] 0.1 mg PO .M,W,F 04/06/17 [History] Iron Polysaccharide Complex [Ferric X-150] 150 mg PO DAILY 04/06/17 [History] Ranitidine [Zantac] 150 mg PO DAILY 04/06/17 [History] Sertraline HCl [Sertraline HCl] 50 mg PO BEDTIME 04/06/17 [History] Past Medical History HEENT History: Reports: Glaucoma, Impaired Vision Other HEENT History: 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 Cardiovascular History: Reports: High Cholesterol, Hypertension, [place], Stents Respiratory History: Reports: Asthma, COPD, SOB Gastrointestinal History: Reports: Gastritis, GERD, Hemorrhoids Genitourinary History: Reports: 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, 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 (See Below) Other OB/BYN History: hysterectomy Musculoskeletal History: Reports: Arthritis, Back Pain, Chronic, Fibromyalgia Neurological History: Reports: Migraines Other Neuro History: hx of migraines; states she doesn't get them anymore Psychiatric History: Reports: None, Bipolar Endocrine/Metabolic History: Reports: Diabetes, Type II Hematologic History: Reports: None Immunologic History: Reports: None Oncologic (Cancer) History: Reports: None Dermatologic History: Reports: Cellulitis, Other (See Below) Other Dermatologic History: poor circulation in legs - Infectious Disease History Infectious Disease History: Reports: None - Past Surgical History Head Surgeries/Procedures: Reports: None HEENT Surgical History: Reports: Cataract Surgery, Eye Surgery, Laser Surgery Cardiovascular Surgical History: Reports: Coronary Artery Stent GI Surgical History: Reports: None Female Surgical History: Reports: Hysterectomy Neurological Surgical History: Reports: None Musculoskeletal Surgical History: Reports: Other (See Below) Other Musculoskeletal Surgeries/Procedures:: Hip Fracture Social & Family History - Family History Family Medical History: Noncontributory HEENT: Reports: None Cardiac: Reports: None Respiratory: Reports: None GI: Reports: None OBGYN: Reports: None Musculoskeletal: Reports: Fibromyalgia Other Musculoskeletal Family History: cousin Neurological: Reports: None Psychiatric: Reports: None Oncologic: Reports: Breast Other Oncologic Family History: Aunt had breast cancer - Tobacco Use Smoking Status *Q: Current Every Day Smoker Years of Tobacco use: 40 Packs/Tins Daily: 0.5 Used Tobacco, but Quit: No Month Tobacco Last Used: mar Second Hand Smoke Exposure: Yes - Caffeine Use Caffeine Use: Reports: Coffee, Soda, Tea Caffeine Use Comment: 4 cups in morning and 1 in the evening - Alcohol Use Days Per Week of Alcohol Use: 0 - Recreational Drug Use Recreational Drug Use: No Recreational Drug Type: Reports: Marijuana/Hashish Other Recreational Drug Type: Pt admits to having smoked pot 2 weeks ago Recreational Drug Use Frequency: Socially - Living Situation & Occupation Living situation: Reports: Other (homeless) Occupation: Unemployed H&P Review of Systems - Review of Systems: Review Of Systems: See Below Exam - Exam Exam: See Below - Vital Signs Vital Signs: Last Vital Signs Temp 36.8 C 04/06/17 16:25 Pulse 100 04/06/17 16:51 Resp 36 H 04/06/17 16:25 BP 154/92 H 04/06/17 16:25 Pulse Ox 94 L 04/06/17 16:25 Weight: 58.967 kg - Exam General: Alert, Oriented, Cooperative, Severe Distress (Due to difficulty breathing however she is able to answer questions with short sentences and able to sit up without assistance when I asked her to examine her lungs). No: Sedated, Lethargic, Obtunded HEENT: Conjunctiva Clear, EACs Clear, EOMI, Hearing Intact, Mucosa Moist & [place] , Nares Patent, Normal Nasal Septum, Posterior Pharynx Clear, Pupils Equal, Pupils Reactive, PERRLA Neck: Supple, Trachea Midline, +2 Carotid Pulse wo Bruit Lungs: Decreased Breath Sounds (but still fair air exchange), Crackles, Rhonchi. No: Rales, Rub, Stridor, Wheezing Cardiovascular: Regular Rate, Regular Rhythm GI/Abdominal Exam: Normal Bowel Sounds, Soft, Non-Tender, No Organomegaly, No Distention, No Abnormal Bruit, No Mass, Pelvis Stable (Female) Exam: Deferred Rectal (Female) Exam: Deferred Back Exam: Normal Inspection, Full Range of Motion. No: CVA Tenderness (L), CVA Tenderness (R) Extremities: Normal Inspection, Normal Range of Motion, Non-Tender, No Pedal Edema, Normal Capillary Refill Skin: Warm, Dry, Intact Neurological: Cranial Nerves Intact Neuro Extensive - Motor, Sensory, Reflexes: No: Tongue Deviation (L), Tongue Deviation (R), Dysarthria, Facial palsy (L), Facial Palsy (R) Psychiatric: Alert, Normal Affect - Patient Data Result Diagrams: 04/06/17 16:29 04/06/17 16:29 *Q Meaningful Use (ADM) - VTE *Q VTE Criteria *Q: - Stroke *Q Stroke Criteria *Q: - AMI *Q AMI Criteria *Q: - Problem List (1) Respiratory distress SNOMED Code(s): 104691559 ICD Code: R06.03 - ACUTE RESPIRATORY DISTRESS Status: Acute Priority: High Current Visit: Yes Problem List Initiated/Reviewed/Updated: Yes Orders Last 24hrs: Active Orders 24 hr Category Date Time Status RT Aerosol Therapy [RC] ASDIRECTED Care 04/06/17 20:01 Active Ready for Discharge [RC] PER UNIT ROUTINE Care 04/06/17 19:59 Active B-TYPE NATRIURETIC PEPTIDE,BNP [CHEM] AM Lab 04/07/17 05:11 Ordered Albuterol/Ipratropium [DuoNeb 3.0-0.5 MG/3 ML] Med 04/06/17 20:00 Once 3 ml NEB ONETIME ONE Azithromycin [Zithromax] 500 mg Med 04/07/17 19:00 Active Sodium Chloride 0.9% [Normal Saline] 250 ml IV Q24H cefTRIAXone [Rocephin] Med 04/07/17 18:00 Active 1 gm IVPUSH Q24H Medication Orders Albuterol/Ipratropium (Duoneb 3.0-0.5 Mg/3 Ml) 3 ml NEB ONETIME ONE Stop: 04/06/17 20:01 Ceftriaxone Sodium (Rocephin) 1 gm IVPUSH Q24H ELFEGO Sodium Chloride (Normal Saline) 1,000 mls @ 125 mls/hr IV ASDIRECTED ELFEGO Last Admin: 04/06/17 17:37 Dose: 125 mls/hr Azithromycin 500 mg/ Sodium (Chloride) 250 mls @ 250 mls/hr IV Q24H ELFEGO Assessment/Plan Comment:: 68-year-old the female was best medical history of congestive heart failure, COPD, asthma, substance abuse presented with pneumonia, sepsis, respiratory distress. She received DuoNeb, Rocephin and azithromycin and 400 mL of normal saline from the ER. She had Monroe catheter placed in ER. We'll give her DuoNeb upon admission and 1600 mL of normal saline as a bolus. She was intubated and transferred to ICU at [facility]. Diagnoses: Pneumonia Sepsis Respiratory distress Acute on chronic kidney failure Congestive heart failure Hypokalemia Hyponatremia
[2017-04-06 21:46] VITALS: BP 144/56
[2017-04-07] MEDS ORDERED: cefTRIAXone 1 GM Vial IVPUSH SCH (18:00)
[2017-04-07] MEDS ORDERED: Azithromycin 500 MG in Sodium Chloride 0.9% 250 ML IV SCH (19:00)
[2017-04-07] MEDS ORDERED: cefTRIAXone 1,000 MG in Sodium Chloride 0.9% 50 ML IV SCH (19:45)
== END 2017-04-06 21:36 | DRG 871 ==
LOC: DL.ED 16:07 → DL.MS 18:11 → UNDOADMIN 18:11 → DL.MS 19:45
PROVIDERS: ADMIT Family Medicine; ATTEND Family Medicine
PROC: 0BH17EZ Insertion of Endotracheal Airway into Trachea, Via Natural or Artificial Opening (ICD-10-PCS; principal; 2017-04-06)
DX: A41.9 Sepsis, unspecified organism (principal); J18.9 Pneumonia, unspecified organism; I13.0 Hypertensive heart and chronic kidney disease with heart failure and stage 1 through stage 4 chronic kidney disease, or unspecified chronic kidney disease; N17.9 Acute kidney failure, unspecified; E87.1 Hypo-osmolality and hyponatremia; R06.03 Acute respiratory distress; I50.9 Heart failure, unspecified; N18.9 Chronic kidney disease, unspecified; E11.22 Type 2 diabetes mellitus with diabetic chronic kidney disease; Z79.4 Long term (current) use of insulin; F17.200 Nicotine dependence, unspecified, uncomplicated; E87.6 Hypokalemia; J44.9 Chronic obstructive pulmonary disease, unspecified; I25.2 Old myocardial infarction; Z95.5 Presence of coronary angioplasty implant and graft; E78.00 Pure hypercholesterolemia, unspecified; K21.9 Gastro-esophageal reflux disease without esophagitis; G89.29 Other chronic pain; M19.90 Unspecified osteoarthritis, unspecified site; M54.9 Dorsalgia, unspecified; M79.7 Fibromyalgia; H40.9 Unspecified glaucoma; Z88.8 Allergy status to other drugs, medicaments and biological substances; Z79.82 Long term (current) use of aspirin; Z79.899 Other long term (current) drug therapy
CPT/HCPCS: 36415; 71045; 80053; 80305; 81001; 83605; 83880; 85025; 87040; 94640; 96374; 96375; 99285; J0456; J0696; J7030; J7050

== ENCOUNTER 2017-04-29 16:56 | Emergency (ER) | payer MEDICAID ==
[2017-04-29 17:10] VITALS: BP 131/58
[2017-04-29] MEDS ORDERED: Aluminum Hydroxide/Magnesium Hydroxide/Simethicone Susp 30 ML Cup PO ONE (18:45)
[2017-04-29] MEDS ORDERED: Magnesium Citrate Solution 296 ML Bottle PO ONE (18:45)
--- NOTE | 2017-04-29 18:51 | EDM.PDOC ---
Scribed by Tiera Clifton 04/29/17 [id number] for Munir Montero MD ED HPI GENERAL MEDICAL PROBLEM - General Chief Complaint: General Stated Complaint: kidney pain [id number] Time Seen by Provider: 04/29/17 17:15 Source of Information: Reports: Patient, Family, Old Records, RN, RN Notes Reviewed History Limitations: Reports: No Limitations - History of Present Illness INITIAL COMMENTS - FREE TEXT/NARRATIVE: Arrives from home by POV having been discharged home from [facility] ( admitted 04/06/17 to 04/27/17 per pt) with c/o being worried about her kidney function, and no BM x5+ days. Pt was seen here at in ER on 04/06/17 and admitted to the hospitalist for Dx of pneumonia. Pt had rapid decline upon admission with resp. failure and was intubated and transferred to [facility] on the day of admission (04/06/17). Pt reports that during her admission at [facility] she had a "heart attack", congestive heart failure, and kidney failure. She states that she had dialysis while there, but was discharged home and told "not to worry about her kidneys", but to f/u in clinic with Dr. Flower during the week of May 01 (she has an appt. but isn't sure what day) to discuss future dialysis needs. Pt states that she has not smoked since 04/06/17, and that she is very worried about her kidney because she only urinated once today. Onset: Unknown/Unsure Duration: Chronic, Constant Location: Reports: Generalized Severity: Moderate Improves with: Reports: None Worsens with: Reports: None Associated Symptoms: Reports: No Other Symptoms - Related Data Allergies Allergy/AdvReac Type Severity Reaction Status Date / Time capsaicin Allergy UNKNOWN Verified 04/29/17 17:14 codeine Allergy Nausea and Verified 04/29/17 17:14 Vomiting ibuprofen Allergy Itching Verified 04/29/17 17:14 pregabalin Allergy CONTACT Verified 04/29/17 17:14 DERMATITIS ALLERGY Home Meds: Home Meds Carvedilol 12.5 mg PO BID 07/19/16 [History] Ergocalciferol (Vitamin D2) [Vitamin D2] 50,000 units PO Q7D 07/19/16 [History] Insulin Detemir [Levemir] 32 unit SUBCUT BEDTIME 07/19/16 [History] Mometasone/Formoterol [Dulera 100-5 MCG] 2 puff IN DAILY 07/19/16 [History] Simvastatin [Zocor] 10 mg PO BEDTIME 07/19/16 [History] Ticagrelor [Brilinta] 90 mg PO BID 07/19/16 [History] Tiotropium [Spiriva HandiHaler] 18 mcg IN DAILY 07/19/16 [History] Bumetanide [Bumex] 1 mg PO .QPM tablet 08/03/16 [Rx] Bumetanide [Bumex] 2 mg PO DAILY tablet 08/03/16 [Rx] Acetaminophen [Pain Reliever] 500 mg PO Q8H PRN 04/06/17 [History] Albuterol [Proventil Neb Soln] 0.63 mg NEB Q4HRRT 04/06/17 [History] Aspirin 325 mg PO DAILY 04/06/17 [History] Fludrocortisone [Fludrocortisone Acetate] 0.1 mg PO .M,W,F 04/06/17 [History] Iron Polysaccharide Complex [Ferric X-150] 150 mg PO DAILY 04/06/17 [History] Ranitidine [Zantac] 150 mg PO DAILY 04/06/17 [History] Sertraline HCl [Sertraline HCl] 50 mg PO BEDTIME 04/06/17 [History] Past Medical History HEENT History: Reports: Glaucoma, Impaired Vision Other HEENT History: 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: Reports: 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, Other (See Below) Other OB/BYN History: hysterectomy Musculoskeletal History: Reports: Arthritis, Back Pain, Chronic, Fibromyalgia Neurological History: Reports: Migraines Other Neuro History: hx of migraines; states she doesn't get them anymore Psychiatric History: Reports: None, Bipolar Endocrine/Metabolic History: Reports: Diabetes, Type II Hematologic History: Reports: None Immunologic History: Reports: None Oncologic (Cancer) History: Reports: None Dermatologic History: Reports: Cellulitis, Other (See Below) Other Dermatologic History: poor circulation in legs - Infectious Disease History Infectious Disease History: Reports: None - Past Surgical History Head Surgeries/Procedures: Reports: None HEENT Surgical History: Reports: Cataract Surgery, Eye Surgery, Laser Surgery Cardiovascular Surgical History: Reports: Coronary Artery Stent GI Surgical History: Reports: None Female Surgical History: Reports: Hysterectomy Neurological Surgical History: Reports: None Musculoskeletal Surgical History: Reports: Other (See Below) Other Musculoskeletal Surgeries/Procedures:: Hip Fracture Social & Family History - Family History Family Medical History: Noncontributory HEENT: Reports: None Cardiac: Reports: None Respiratory: Reports: None GI: Reports: None OBGYN: Reports: None Musculoskeletal: Reports: Fibromyalgia Other Musculoskeletal Family History: cousin Neurological: Reports: None Psychiatric: Reports: None Oncologic: Reports: Breast Other Oncologic Family History: Aunt had breast cancer - Tobacco Use Smoking Status *Q: Former Smoker Years of Tobacco use: 40 Packs/Tins Daily: 0.5 Used Tobacco, but Quit: Yes Month Tobacco Last Used: 1 Second Hand Smoke Exposure: Yes - Caffeine Use Caffeine Use: Reports: Coffee Caffeine Use Comment: 4 cups in morning and 1 in the evening - Alcohol Use Days Per Week of Alcohol Use: 0 - Recreational Drug Use Recreational Drug Use: Yes Drug Use in Last 12 Months: Yes Recreational Drug Type: Reports: Marijuana/Hashish Other Recreational Drug Type: Pt admits to having smoked pot 2 weeks ago Recreational Drug Use Frequency: Socially - Living Situation & Occupation Living situation: Reports: Other (homeless) Occupation: Unemployed ED ROS GENERAL - Review of Systems Review Of Systems: ROS reveals no pertinent complaints other than HPI. ED EXAM, GENERAL - Physical Exam Exam: See Below Exam Limited By: No Limitations General Appearance: Alert, No Apparent Distress, Other (chronically ill appearing) Eye Exam: Right Eye: Normal Inspection (blind left eye, chronic) Nose: Normal Inspection Throat/Mouth: Normal Oropharynx, Normal Voice, No Airway Compromise. No: Normal Teeth Head: Atraumatic, Normocephalic Neck: Normal Inspection, Supple, Non-Tender, Full Range of Motion Respiratory/Chest: No Respiratory Distress, No Accessory Muscle Use, Chest Non- Tender, Decreased Breath Sounds, Wheezing, Other (course breath sounds) Cardiovascular: Regular Rate, Rhythm, No JVD, Tachycardia, Other (B/L lower extremity edema, left > Rt) GI/Abdominal: Soft, No Distention, Tender (mild tenderness at LUQ and LLQ). No : Guarding, Rigid, Rebound (Female) Exam: Deferred Rectal (Female) Exam: Deferred Back Exam: Normal Inspection. No: CVA Tenderness (L), CVA Tenderness (R) Extremities: Normal Range of Motion. No: Annika's Sign, Increased Warmth, Redness Neurological: Alert, Oriented, No Motor/Sensory Deficits Psychiatric: Anxious Skin Exam: Warm, Dry, Intact, Normal Color, No Rash EKG INTERPRETATION EKG Date: 04/29/17 Time: 17:04 Rhythm: Other (sinus tachycardia) Rate (Beats/Min): 109 Snyder: Normal P-Wave: Present QRS: Other (LVH with secondary repolarization abnormality.) ST-T: Normal QT: Normal Course - Vital Signs Last Recorded V/S: Last Vital Signs Temp 37.2 C 04/29/17 17:09 Pulse 109 H 04/29/17 17:09 Resp 21 H 04/29/17 17:09 BP 131/58 L 04/29/17 17:09 Pulse Ox 99 04/29/17 17:09 - Orders/Labs/Meds Orders: Active Orders 24 hr Category Date Time Status EKG 12 Lead [EKG Documentation Completion] [RC] STAT Care 04/29/17 17:32 Active Enema [RC] ASDIRECTED Care 04/29/17 18:46 Active Labs: Laboratory Tests 04/29/17 04/29/17 Range/Units 17:40 17:40 WBC 8.6 (5.0-10.0) 10^3/uL RBC 2.88 L (4.2-5.4) 10^6/uL Hgb 8.7 L D (12.0-16.0) g/dL Hct 26.6 L (37.0-47.0) % MCV 92.4 D (80-100) fL MCH 30.2 (27.0-34.0) pg MCHC 32.7 L (33.0-35.0) g/dL Plt Count 234 D (150-450) 10^3/uL Neut % (Auto) 54.0 (42.2-75.2) % Lymph % (Auto) 25.6 (20.5-50.1) % [place] % (Auto) 14.1 H (2-8) % Eos % (Auto) 4.0 H (1.0-3.0) % Baso % (Auto) 2.3 H (0.0-1.0) % Sodium 138 D (135-145) mmol/L Potassium 4.3 (3.6-5.0) mmol/L Chloride 106 (101-111) mmol/L Carbon Dioxide 23.0 (21.0-31.0) mmol/L Anion Gap 13.3 BUN 59 H (7-18) mg/dL Creatinine 2.8 H (0.6-1.3) mg/dL Est Cr Clr Drug Dosing 17.67 mL/min Estimated GFR (MDRD) 17 BUN/Creatinine Ratio 21.07 Glucose 178 H (74-105) mg/dL Calcium 6.7 L (8.4-10.2) mg/dl Total Bilirubin 0.4 (0.2-1.0) mg/dL AST 47 H (10-42) IU/L ALT 33 (10-60) IU/L Alkaline Phosphatase 79 (42-121) IU/L B-Natriuretic Peptide 710 H (0-100) pg/ml Total Protein 6.4 L (6.7-8.2) g/dl Albumin 2.5 L (3.2-5.5) g/dl Globulin 3.9 Albumin/Globulin Ratio 0.64 Amylase 93 (28-100) U/L Lipase 39 (22-51) U/L Meds: Medications Discontinued Medications Generic Name Dose Route Start Last Admin Trade Name Freq PRN Reason Stop Dose Admin Al Hydroxide/Mg Hydroxide 30 ml 04/29/17 18:45 Mag-Al Plus PO 04/29/17 18:46 ONETIME ONE Magnesium Citrate 150 ml 04/29/17 18:45 Citrate Of Magnesia PO 04/29/17 18:46 ONETIME ONE - Radiology Interpretation Free Text/Narrative:: Xray Abdomen IMPRESSION: Constipation. No obstruction. Suspect wall thickening of the stomach. Thank you for allowing us to participate in the care of your patient. ROSEMARY TALAMANTES | Final Radiology Report CONFIDENTIALITY STATEMENT This report is intended only for use by the referring physician, and only in accordance with law. If you received this in error, call [phone]. Page 2 of 2 Dictated and Authenticated by: Pam Bourgeois MD 04/29/2017 7:11 PM Central Time ([place] & [place]) - Re-Assessments/Exams Free Text/Narrative Re-Assessment/Exam: 04-29-17 Pt reports feeling much improved following tx with soap suds enemas and wishes to be D/C'd to home. Departure - Departure Time of Disposition: 20:40 Disposition: Home, Self-Care 01 Condition: Fair Clinical Impression: Constipation Qualifiers: Constipation type: unspecified constipation type Qualified Code(s): K59.00 - Constipation, unspecified Chronic kidney disease Qualifiers: Chronic kidney disease stage: unspecified stage Qualified Code(s): N18.9 - Chronic kidney disease, unspecified - Discharge Information Instructions: Food Basics for Chronic Kidney Disease, Constipation, Adult, Easy -to-Read Referrals: PCP,None [Primary Care Provider] - Forms: ED Department Discharge Additional Instructions: Follow up in clinic this week with Dr. Flower as scheduled. - My Orders Last 24 Hours: My Active Orders 04/29/17 17:32 EKG 12 Lead [EKG Documentation Completion] [RC] STAT 04/29/17 18:46 Enema [RC] ASDIRECTED - Assessment/Plan Last 24 Hours: My Active Orders 04/29/17 17:32 EKG 12 Lead [EKG Documentation Completion] [RC] STAT 04/29/17 18:46 Enema [RC] ASDIRECTED I have read and agree with the documentation that has been completed regarding this visit. By signing this record, I attest that the documentation was completed in my physical presence and is an accurate record of the encounter.
--- NOTE | 2017-05-03 10:27 | EKG ---
04/29/2017- ROSEMARY TALAMANTES - FINDINGS: EKG per my reading shows sinus tachycardia with lateral T-wave inversions and ST depression. [facility] /[id number]
== END 2017-04-29 21:00 | disposition home or self-care (01) ==
LOC: DL.ED 16:56
DX: I13.0 Hypertensive heart and chronic kidney disease with heart failure and stage 1 through stage 4 chronic kidney disease, or unspecified chronic kidney disease (principal); E11.22 Type 2 diabetes mellitus with diabetic chronic kidney disease; N18.9 Chronic kidney disease, unspecified; I50.9 Heart failure, unspecified; K59.00 Constipation, unspecified; E78.00 Pure hypercholesterolemia, unspecified; J44.9 Chronic obstructive pulmonary disease, unspecified; F31.9 Bipolar disorder, unspecified; Z99.2 Dependence on renal dialysis; Z95.5 Presence of coronary angioplasty implant and graft; Z87.891 Personal history of nicotine dependence; Z79.4 Long term (current) use of insulin; Z79.82 Long term (current) use of aspirin; Z79.899 Other long term (current) drug therapy; Z88.5 Allergy status to narcotic agent; Z88.6 Allergy status to analgesic agent; Z91.018 Allergy to other foods; Z88.8 Allergy status to other drugs, medicaments and biological substances
CPT/HCPCS: 36415; 74021; 80053; 82150; 83690; 83880; 85025; 93005; 99284

== ENCOUNTER 2017-05-02 20:43 | Emergency (ER) | payer MEDICAID ==
[2017-05-02] MEDS ORDERED: Bumetanide 1 MG/4 ML MDV IVPUSH ONE (20:49)
[2017-05-02] MEDS ORDERED: Albuterol 0.083% 2.5 MG/3 ML Neb Soln NEB ONE ×2 (20:51→22:12)
[2017-05-02 20:55] VITALS: BP 139/78
[2017-05-02 21:06] LABS: BASE EXCESS ARTERIAL -7 mmol/L ((-2)-(+3)); O2 DELIVERY DEVICE CPAP; O2 SATURATION ARTERIAL 94 % (95-100); PCO2 ARTERIAL 31 mmHg (35-45); PO2 ARTERIAL 69 mmHg (70-100)
--- NOTE | 2017-05-02 21:23 | EDM.PDOC ---
ED HPI GENERAL MEDICAL PROBLEM - General Chief Complaint: Respiratory Problem Stated Complaint: BY AMBULANCE Time Seen by Provider: 05/02/17 20:55 Source of Information: Reports: Patient, EMS History Limitations: Reports: Respiratory Distress - History of Present Illness INITIAL COMMENTS - FREE TEXT/NARRATIVE: ED via [facility] with respiratory distress. Reported sats 85% room air, neb given, placed on CPAP. Reported breathing difficulty starting this am. Recent hospitalization for pneumonia 04/06-04/27. Seen in ED on 04/29 for abdominal pain and constipation. Onset: Today Treatments BILINGUAL MEDICAL ASSISTANT: Reports: Oxygen - Related Data Allergies Allergy/AdvReac Type Severity Reaction Status Date / Time capsaicin Allergy UNKNOWN Verified 05/02/17 21:20 codeine Allergy Nausea and Verified 05/02/17 21:20 Vomiting ibuprofen Allergy Itching Verified 05/02/17 21:20 pregabalin Allergy CONTACT Verified 05/02/17 21:20 DERMATITIS ALLERGY Home Meds: Home Meds Carvedilol 12.5 mg PO BID 07/19/16 [History] Ergocalciferol (Vitamin D2) [Vitamin D2] 50,000 units PO Q7D 07/19/16 [History] Insulin Detemir [Levemir] 32 unit SUBCUT BEDTIME 07/19/16 [History] Mometasone/Formoterol [Dulera 100-5 MCG] 2 puff IN DAILY 07/19/16 [History] Simvastatin [Zocor] 10 mg PO BEDTIME 07/19/16 [History] Ticagrelor [Brilinta] 90 mg PO BID 07/19/16 [History] Tiotropium [Spiriva HandiHaler] 18 mcg IN DAILY 07/19/16 [History] Bumetanide [Bumex] 1 mg PO .QPM tablet 08/03/16 [Rx] Bumetanide [Bumex] 2 mg PO DAILY tablet 08/03/16 [Rx] Acetaminophen [Pain Reliever] 500 mg PO Q8H PRN 04/06/17 [History] Albuterol [Proventil Neb Soln] 0.63 mg NEB Q4HRRT 04/06/17 [History] Aspirin 325 mg PO DAILY 04/06/17 [History] Fludrocortisone [Fludrocortisone Acetate] 0.1 mg PO .M,W,F 04/06/17 [History] Iron Polysaccharide Complex [Ferric X-150] 150 mg PO DAILY 04/06/17 [History] Ranitidine [Zantac] 150 mg PO DAILY 04/06/17 [History] Sertraline HCl [Sertraline HCl] 50 mg PO BEDTIME 04/06/17 [History] Past Medical History HEENT History: Reports: Glaucoma, Impaired Vision Other HEENT History: 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 Cardiovascular History: Reports: Heart Failure, High Cholesterol, Hypertension, MD, Stents Respiratory History: Reports: Asthma, COPD, Intubation, Previous, SOB Gastrointestinal History: Reports: Chronic Constipation, Gastritis, GERD, Hemorrhoids Genitourinary History: Reports: Acute Renal Failure, Chronic Renal Insuffiency, Dialysis 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 MANAGER History: Reports: 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, Other (See Below) Other OB/BYN History: hysterectomy Musculoskeletal History: Reports: Arthritis, Back Pain, Chronic, Fibromyalgia Neurological History: Reports: Migraines Other Neuro History: hx of migraines; states she doesn't get them anymore Psychiatric History: Reports: None, Bipolar Endocrine/Metabolic History: Reports: Diabetes, Type II Hematologic History: Reports: None Immunologic History: Reports: None Oncologic (Cancer) History: Reports: None Dermatologic History: Reports: Cellulitis, Other (See Below) Other Dermatologic History: poor circulation in legs - Infectious Disease History Infectious Disease History: Reports: None - Past Surgical History Head Surgeries/Procedures: Reports: None HEENT Surgical History: Reports: Cataract Surgery, Eye Surgery, Laser Surgery Cardiovascular Surgical History: Reports: Coronary Artery Stent GI Surgical History: Reports: None Female Surgical History: Reports: Hysterectomy Neurological Surgical History: Reports: None Musculoskeletal Surgical History: Reports: Other (See Below) Other Musculoskeletal Surgeries/Procedures:: Hip Fracture Social & Family History - Family History Family Medical History: Noncontributory HEENT: Reports: None Cardiac: Reports: None Respiratory: Reports: None GI: Reports: None OBGYN: Reports: None Musculoskeletal: Reports: Fibromyalgia Other Musculoskeletal Family History: cousin Neurological: Reports: None Psychiatric: Reports: None Oncologic: Reports: Breast Other Oncologic Family History: Aunt had breast cancer - Tobacco Use Smoking Status *Q: Current Status Unknown Years of Tobacco use: 40 Packs/Tins Daily: 0.5 Used Tobacco, but Quit: Yes Month/Year Tobacco Last Used: 1 Second Hand Smoke Exposure: Yes - Caffeine Use Caffeine Use: Reports: Coffee Caffeine Use Comment: 4 cups in morning and 1 in the evening - Alcohol Use Days Per Week of Alcohol Use: 0 - Recreational Drug Use Recreational Drug Use: Yes Drug Use in Last 12 Months: Yes Recreational Drug Type: Reports: Marijuana/Hashish Other Recreational Drug Type: Pt admits to having smoked pot 2 weeks ago Recreational Drug Use Frequency: Socially - Living Situation & Occupation Living situation: Reports: Other (homeless) Occupation: Unemployed ED ROS GENERAL - Review of Systems Review Of Systems: Unable To Obtain ED EXAM, GENERAL - Physical Exam Exam: See Below Exam Limited By: Respiratory Distress General Appearance: Alert, Anxious, Moderate Distress Eye Exam: Bilateral Eye: EOMI, PERRL Ears: Normal External Exam, Normal TMs Nose: Normal Inspection Throat/Mouth: Other (mucus membranes dry, multiple teeth absent) Head: Atraumatic, Normocephalic Neck: Normal Inspection Respiratory/Chest: Respiratory Distress, Decreased Breath Sounds, Rhonchi, Wheezing Cardiovascular: Regular Rate, Rhythm, Tachycardia, Other (3+ edema to left leg above knee, tight 2+ pedal on right, redness inner thigh left, ). No: No Edema GI/Abdominal: Normal Bowel Sounds, Soft Rectal (Female) Exam: Heme - Stool Back Exam: Other (kyphotic) Extremities: Pedal Edema, Increased Warmth Neurological: Alert, Oriented, Normal Cognition, Slow to Respond Psychiatric: Anxious Skin Exam: Warm, Dry, Ecchymosis (abdomen), Rash (below left breast) Course - Vital Signs Last Recorded V/S: Last Vital Signs Temp 99.6 F 05/02/17 20:52 Pulse 107 H 05/02/17 21:34 Resp 25 H 05/02/17 20:52 BP 139/78 05/02/17 20:52 Pulse Ox - Orders/Labs/Meds Orders: Active Orders 24 hr Category Date Time Status EKG 12 Lead [EKG Documentation Completion] [RC] URGENT Care 05/02/17 20:42 Active RT Aerosol Therapy [RC] ASDIRECTED Care 05/02/17 20:52 Active RT Aerosol Therapy [RC] ASDIRECTED Care 05/02/17 22:12 Active CULTURE BLOOD [BC] Stat Lab 05/02/17 21:00 Received CULTURE BLOOD [BC] Stat Lab 05/02/17 21:05 Received Blood Culture x2 Reflex Set [OM.PC] Stat Oth 05/02/17 20:41 Ordered Labs: Laboratory Tests 05/02/17 05/02/17 05/02/17 Range/Units 21:00 21:05 21:05 WBC 18.8 H (5.0-10.0) 10^3/uL RBC 2.64 L (4.2-5.4) 10^6/uL Hgb 8.1 L (12.0-16.0) g/dL Hct 24.2 L (37.0-47.0) % MCV 91.7 (80-100) fL MCH 30.7 (27.0-34.0) pg MCHC 33.5 (33.0-35.0) g/dL Plt Count 417 D (150-450) 10^3/uL Neut % (Auto) 78.3 H (42.2-75.2) % Lymph % (Auto) 10.0 L (20.5-50.1) % [place] % (Auto) 9.2 H (2-8) % Eos % (Auto) 1.9 (1.0-3.0) % Baso % (Auto) 0.6 (0.0-1.0) % Add Manual Diff Yes Neutrophils % (Manual) 76 H (42-75) % Band Neutrophils % 5 % Lymphocytes % (Manual) 11 L (20-50) % Monocytes % (Manual) 7 (2-8) % Eosinophils % (Manual) 1 (1-3) % D-Dimer, Quantitative 1850 H (0-400) ng/mL ABG pH 7.35 (7.35-7.45) ABG pCO2 31 L (35-45) mmHg ABG pO2 69 L (70-100) mmHg ABG HCO3 17.0 L (22-26) mmol/L ABG O2 Saturation 94 L (95-100) % ABG Base Excess -7 L ((-2)-(+3)) mmol/L O2 Delivery Device Cpap Sodium (135-145) mmol/L Potassium (3.6-5.0) mmol/L Chloride (101-111) mmol/L Carbon Dioxide (21.0-31.0) mmol/L Anion Gap BUN (7-18) mg/dL Creatinine (0.6-1.3) mg/dL Est Cr Clr Drug Dosing Estimated GFR (MDRD) BUN/Creatinine Ratio Glucose (74-105) mg/dL Lactic Acid (0.5-2.2) mmol/L Calcium (8.4-10.2) mg/dl Total Bilirubin (0.2-1.0) mg/dL AST (10-42) IU/L ALT (10-60) IU/L Alkaline Phosphatase (42-121) IU/L CK-MB (CK-2) (0.4-4.7) ng/mL Troponin I (0.00-0.02) ng/ml B-Natriuretic Peptide (0-100) pg/ml Total Protein (6.7-8.2) g/dl Albumin (3.2-5.5) g/dl Globulin Albumin/Globulin Ratio Urine Color (YELLOW) Urine Appearance (CLEAR) Urine pH (5.0-9.0) Ur Specific [place] (1.005-1.030) Urine Protein (NEGATIVE) Urine Glucose (UA) (NEGATIVE) Urine Ketones (NEGATIVE) Urine Occult Blood (NEGATIVE) Urine Nitrite (NEGATIVE) Urine Bilirubin (NEGATIVE) Urine Urobilinogen (0.2-1.0) mg/dL Ur Leukocyte Esterase (NEGATIVE) Urine RBC /HPF Urine WBC (0-5/HPF) /HPF Ur Epithelial Cells /HPF Amorphous Sediment (0/HPF) /HPF Urine Bacteria (0-FEW/HPF) /HPF Urine Opiates Screen (NEGATIVE) Ur Oxycodone Screen (NEGATIVE) Urine Methadone Screen (NEGATIVE) Ur Barbiturates Screen (NEGATIVE) U Tricyclic Antidepress (NEGATIVE) Ur Phencyclidine Scrn (NEGATIVE) Ur Amphetamine Screen (NEGATIVE) U Methamphetamines Scrn (NEGATIVE) Urine MDMA Screen (NEGATIVE) U Benzodiazepines Scrn (NEGATIVE) Urine Cocaine Screen (NEGATIVE) U Marijuana (THC) Screen (NEGATIVE) 05/02/17 05/02/17 05/02/17 Range/Units 21:05 21:05 21:05 WBC (5.0-10.0) 10^3/uL RBC (4.2-5.4) 10^6/uL Hgb (12.0-16.0) g/dL Hct (37.0-47.0) % MCV (80-100) fL MCH (27.0-34.0) pg MCHC (33.0-35.0) g/dL Plt Count (150-450) 10^3/uL Neut % (Auto) (42.2-75.2) % Lymph % (Auto) (20.5-50.1) % [place] % (Auto) (2-8) % Eos % (Auto) (1.0-3.0) % Baso % (Auto) (0.0-1.0) % Add Manual Diff Neutrophils % (Manual) (42-75) % Band Neutrophils % % Lymphocytes % (Manual) (20-50) % Monocytes % (Manual) (2-8) % Eosinophils % (Manual) (1-3) % D-Dimer, Quantitative (0-400) ng/mL ABG pH (7.35-7.45) ABG pCO2 (35-45) mmHg ABG pO2 (70-100) mmHg ABG HCO3 (22-26) mmol/L ABG O2 Saturation (95-100) % ABG Base Excess ((-2)-(+3)) mmol/L O2 Delivery Device Sodium 133 L (135-145) mmol/L Potassium 4.7 (3.6-5.0) mmol/L Chloride 101 (101-111) mmol/L Carbon Dioxide 20.0 L (21.0-31.0) mmol/L Anion Gap 16.7 BUN 60 H (7-18) mg/dL Creatinine 3.2 H (0.6-1.3) mg/dL Est Cr Clr Drug Dosing TNP Estimated GFR (MDRD) 15 BUN/Creatinine Ratio 18.75 Glucose 120 H (74-105) mg/dL Lactic Acid 0.6 (0.5-2.2) mmol/L Calcium 5.9 L (8.4-10.2) mg/dl Total Bilirubin 0.7 (0.2-1.0) mg/dL AST 38 (10-42) IU/L ALT 39 (10-60) IU/L Alkaline Phosphatase 83 (42-121) IU/L CK-MB (CK-2) 2.60 (0.4-4.7) ng/mL Troponin I 0.15 H* (0.00-0.02) ng/ml B-Natriuretic Peptide 1530 H (0-100) pg/ml Total Protein 7.0 (6.7-8.2) g/dl Albumin 2.6 L (3.2-5.5) g/dl Globulin 4.4 Albumin/Globulin Ratio 0.59 Urine Color (YELLOW) Urine Appearance (CLEAR) Urine pH (5.0-9.0) Ur Specific [place] (1.005-1.030) Urine Protein (NEGATIVE) Urine Glucose (UA) (NEGATIVE) Urine Ketones (NEGATIVE) Urine Occult Blood (NEGATIVE) Urine Nitrite (NEGATIVE) Urine Bilirubin (NEGATIVE) Urine Urobilinogen (0.2-1.0) mg/dL Ur Leukocyte Esterase (NEGATIVE) Urine RBC /HPF Urine WBC (0-5/HPF) /HPF Ur Epithelial Cells /HPF Amorphous Sediment (0/HPF) /HPF Urine Bacteria (0-FEW/HPF) /HPF Urine Opiates Screen (NEGATIVE) Ur Oxycodone Screen (NEGATIVE) Urine Methadone Screen (NEGATIVE) Ur Barbiturates Screen (NEGATIVE) U Tricyclic Antidepress (NEGATIVE) Ur Phencyclidine Scrn (NEGATIVE) Ur Amphetamine Screen (NEGATIVE) U Methamphetamines Scrn (NEGATIVE) Urine MDMA Screen (NEGATIVE) U Benzodiazepines Scrn (NEGATIVE) Urine Cocaine Screen (NEGATIVE) U Marijuana (THC) Screen (NEGATIVE) 05/02/17 05/02/17 Range/Units 21:35 21:35 WBC (5.0-10.0) 10^3/uL RBC (4.2-5.4) 10^6/uL Hgb (12.0-16.0) g/dL Hct (37.0-47.0) % MCV (80-100) fL MCH (27.0-34.0) pg MCHC (33.0-35.0) g/dL Plt Count (150-450) 10^3/uL Neut % (Auto) (42.2-75.2) % Lymph % (Auto) (20.5-50.1) % [place] % (Auto) (2-8) % Eos % (Auto) (1.0-3.0) % Baso % (Auto) (0.0-1.0) % Add Manual Diff Neutrophils % (Manual) (42-75) % Band Neutrophils % % Lymphocytes % (Manual) (20-50) % Monocytes % (Manual) (2-8) % Eosinophils % (Manual) (1-3) % D-Dimer, Quantitative (0-400) ng/mL ABG pH (7.35-7.45) ABG pCO2 (35-45) mmHg ABG pO2 (70-100) mmHg ABG HCO3 (22-26) mmol/L ABG O2 Saturation (95-100) % ABG Base Excess ((-2)-(+3)) mmol/L O2 Delivery Device Sodium (135-145) mmol/L Potassium (3.6-5.0) mmol/L Chloride (101-111) mmol/L Carbon Dioxide (21.0-31.0) mmol/L Anion Gap BUN (7-18) mg/dL Creatinine (0.6-1.3) mg/dL Est Cr Clr Drug Dosing Estimated GFR (MDRD) BUN/Creatinine Ratio Glucose (74-105) mg/dL Lactic Acid (0.5-2.2) mmol/L Calcium (8.4-10.2) mg/dl Total Bilirubin (0.2-1.0) mg/dL AST (10-42) IU/L ALT (10-60) IU/L Alkaline Phosphatase (42-121) IU/L CK-MB (CK-2) (0.4-4.7) ng/mL Troponin I (0.00-0.02) ng/ml B-Natriuretic Peptide (0-100) pg/ml Total Protein (6.7-8.2) g/dl Albumin (3.2-5.5) g/dl Globulin Albumin/Globulin Ratio Urine Color Yellow (YELLOW) Urine Appearance Slightly cloudy (CLEAR) Urine pH 7.0 (5.0-9.0) Ur Specific [place] 1.020 (1.005-1.030) Urine Protein >=300 H (NEGATIVE) Urine Glucose (UA) 100 H (NEGATIVE) Urine Ketones Negative (NEGATIVE) Urine Occult Blood Negative (NEGATIVE) Urine Nitrite Negative (NEGATIVE) Urine Bilirubin Negative (NEGATIVE) Urine Urobilinogen 0.2 (0.2-1.0) mg/dL Ur Leukocyte Esterase Negative (NEGATIVE) Urine RBC 0-5 /HPF Urine WBC 0-5 (0-5/HPF) /HPF Ur Epithelial Cells Rare /HPF Amorphous Sediment Moderate H (0/HPF) /HPF Urine Bacteria Rare (0-FEW/HPF) /HPF Urine Opiates Screen Negative (NEGATIVE) Ur Oxycodone Screen Negative (NEGATIVE) Urine Methadone Screen Negative (NEGATIVE) Ur Barbiturates Screen Negative (NEGATIVE) U Tricyclic Antidepress Negative (NEGATIVE) Ur Phencyclidine Scrn Negative (NEGATIVE) Ur Amphetamine Screen Negative (NEGATIVE) U Methamphetamines Scrn Negative (NEGATIVE) Urine MDMA Screen Negative (NEGATIVE) U Benzodiazepines Scrn Negative (NEGATIVE) Urine Cocaine Screen Negative (NEGATIVE) U Marijuana (THC) Screen Positive H (NEGATIVE) Meds: Medications Discontinued Medications Generic Name Dose Route Start Last Admin Trade Name Freq PRN Reason Stop Dose Admin Albuterol 2.5 mg 05/02/17 20:51 05/02/17 21:16 Proventil Neb Soln NEB 05/02/17 20:52 2.5 mg ONETIME ONE Administration Albuterol 2.5 mg 05/02/17 22:12 05/02/17 22:17 Proventil Neb Soln NEB 05/02/17 22:13 2.5 mg ONETIME ONE Administration Bumetanide 1 mg 05/02/17 20:49 05/02/17 21:15 Bumex IVPUSH 05/02/17 20:50 1 mg ONETIME ONE Administration Enoxaparin Sodium 60 mg 05/02/17 21:50 05/02/17 22:04 Lovenox SUBCUT 05/02/17 21:51 60 mg ONETIME ONE Administration - Radiology Interpretation Free Text/Narrative:: CXR: question of interstitial edema, interstitial infiltrates could be considered alternatively new left pleural effusion improvement in prior right lung infiltrate - Re-Assessments/Exams Free Text/Narrative Re-Assessment/Exam: 05/03/17 03:20 On arrival RT here, temporary Ventimask while BiPAP being set up. ABG's done. On BiPap, tolerating well able to answer with 1-2 word responses. Patient responded yes when questioned if she wanted to be intubated if breathing worsened. TC consult Dr. yenifer Escalante ED, accepting of patient in transfer for respiratory distress, pulmonary edema and elevated D dimer. Staus improving at time of discharge, more alert. VSS. Tx via [facility]. Departure - Departure Time of Disposition: 22:15 Disposition: DC/Tfer to Acute Hospital 02 Condition: Poor, Undetermined Clinical Impression: Elevated troponin, Congestive heart failure with left ventricular systolic dysfunction Congestive heart failure Qualifiers: Heart failure type: unspecified Heart failure chronicity: acute on chronic Qualified Code(s): I50.9 - Heart failure, unspecified COPD (chronic obstructive pulmonary disease) Qualifiers: COPD type: unspecified COPD Qualified Code(s): J44.9 - Chronic obstructive pulmonary disease, unspecified - Discharge Information Forms: ED Department Discharge - My Orders Last 24 Hours: My Active Orders 05/02/17 20:41 Blood Culture x2 Reflex Set [OM.PC] Stat 05/02/17 20:42 EKG 12 Lead [EKG Documentation Completion] [RC] URGENT 05/02/17 20:52 RT Aerosol Therapy [RC] ASDIRECTED 05/02/17 21:00 CULTURE BLOOD [BC] Stat 05/02/17 21:05 CULTURE BLOOD [BC] Stat 05/02/17 22:12 RT Aerosol Therapy [RC] ASDIRECTED - Assessment/Plan Last 24 Hours: My Active Orders 05/02/17 20:41 Blood Culture x2 Reflex Set [OM.PC] Stat 05/02/17 20:42 EKG 12 Lead [EKG Documentation Completion] [RC] URGENT 05/02/17 20:52 RT Aerosol Therapy [RC] ASDIRECTED 05/02/17 21:00 CULTURE BLOOD [BC] Stat 05/02/17 21:05 CULTURE BLOOD [BC] Stat 05/02/17 22:12 RT Aerosol Therapy [RC] ASDIRECTED
[2017-05-02 21:33] LABS: CHLORIDE,CL 101 mmol/L (101-111); SODIUM,NA 133 mmol/L (135-145)
[2017-05-02] MEDS ORDERED: Enoxaparin 60 MG/0.6 ML Syringe SUBCUT ONE (21:50)
--- NOTE | 2017-05-03 16:30 | EKG ---
05/02/2017 - ROSEMARY TALAMANTES - EKG per my reading, shows sinus tachycardia at the rate of 116. [facility] /[id number]
== END 2017-05-02 22:18 ==
LOC: DL.ED 20:43
DX: I13.0 Hypertensive heart and chronic kidney disease with heart failure and stage 1 through stage 4 chronic kidney disease, or unspecified chronic kidney disease (principal); I50.20 Unspecified systolic (congestive) heart failure; J44.9 Chronic obstructive pulmonary disease, unspecified; E11.22 Type 2 diabetes mellitus with diabetic chronic kidney disease; N18.9 Chronic kidney disease, unspecified; R79.89 Other specified abnormal findings of blood chemistry; J45.909 Unspecified asthma, uncomplicated; Z88.5 Allergy status to narcotic agent; Z88.8 Allergy status to other drugs, medicaments and biological substances; Z88.6 Allergy status to analgesic agent; Z79.899 Other long term (current) drug therapy; Z79.82 Long term (current) use of aspirin; Z87.891 Personal history of nicotine dependence
CPT/HCPCS: 36415; 36600; 71045; 80053; 80305; 81001; 82272; 82553; 82803; 83605; 83880; 84484; 85025; 85379; 87040; 93005; 96372; 96374; 99285; J1650; J7620-GY; S0171

== ENCOUNTER 2017-05-12 12:28 | Emergency (ER) | payer MEDICAID ==
[2017-05-12 12:40] VITALS: BP 96/62
--- NOTE | 2017-05-12 13:08 | EDM.PDOC ---
ED HPI GENERAL MEDICAL PROBLEM - General Chief Complaint: Upper Extremity Injury/Pain Stated Complaint: BY AMBULANCE Time Seen by Provider: 05/12/17 13:00 Source of Information: Reports: Patient, RN, RN Notes Reviewed History Limitations: Reports: No Limitations - History of Present Illness INITIAL COMMENTS - FREE TEXT/NARRATIVE: Patient presents to ER per [facility] with complaint of fall today at 11:30. Patient states she fell on left shoulder, rates pain 10/10. Patient states she got dizzy prior to falling. Patient had been to dialysis today. Onset: Today Location: Reports: Upper Extremity, Left Quality: Reports: Ache Severity: Moderate Improves with: Reports: None Worsens with: Reports: None Associated Symptoms: Reports: No Other Symptoms Left Arm Pain Score (Numeric/FACES): 8 - Related Data Allergies Allergy/AdvReac Type Severity Reaction Status Date / Time capsaicin Allergy UNKNOWN Verified 05/12/17 12:41 codeine Allergy Nausea and Verified 05/12/17 12:41 Vomiting ibuprofen Allergy Itching Verified 05/12/17 12:41 pregabalin Allergy CONTACT Verified 05/12/17 12:41 DERMATITIS ALLERGY Home Meds: Home Meds Carvedilol 12.5 mg PO BID 07/19/16 [History] Insulin Detemir [Levemir] 5 unit SUBCUT BEDTIME 07/19/16 [History] Mometasone/Formoterol [Dulera 100-5 MCG] 2 puff IN DAILY 07/19/16 [History] Simvastatin [Zocor] 10 mg PO BEDTIME 07/19/16 [History] Ticagrelor [Brilinta] 90 mg PO BID 07/19/16 [History] Tiotropium [Spiriva HandiHaler] 18 mcg IN DAILY 07/19/16 [History] Bumetanide [Bumex] 1 mg PO .QPM tablet 08/03/16 [Rx] Bumetanide [Bumex] 2 mg PO DAILY tablet 08/03/16 [Rx] Acetaminophen [Pain Reliever] 500 mg PO Q8H PRN 04/06/17 [History] Albuterol [Proventil Neb Soln] 0.63 mg NEB Q4HRRT 04/06/17 [History] Aspirin 325 mg PO DAILY 04/06/17 [History] Iron Polysaccharide Complex [Ferric X-150] 150 mg PO DAILY 04/06/17 [History] Ranitidine [Zantac] 150 mg PO DAILY 04/06/17 [History] Sertraline HCl [Sertraline HCl] 50 mg PO BEDTIME 04/06/17 [History] Past Medical History HEENT History: Reports: Glaucoma, Impaired Vision Other HEENT History: 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 Cardiovascular History: Reports: High Cholesterol, Hypertension, [place], Stents Respiratory History: Reports: Asthma, COPD, SOB Gastrointestinal History: Reports: Gastritis, GERD, Hemorrhoids Genitourinary History: Reports: Chronic Renal Insuffiency, Dialysis [employer] History: Reports: 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, Other (See Below) Other OB/BYN History: hysterectomy Musculoskeletal History: Reports: Arthritis, Back Pain, Chronic, Fibromyalgia Neurological History: Reports: Migraines Other Neuro History: hx of migraines; states she doesn't get them anymore Psychiatric History: Reports: None, Bipolar Endocrine/Metabolic History: Reports: Diabetes, Type II Hematologic History: Reports: None Immunologic History: Reports: None Oncologic (Cancer) History: Reports: None Dermatologic History: Reports: Cellulitis, Other (See Below) Other Dermatologic History: poor circulation in legs - Infectious Disease History Infectious Disease History: Reports: None - Past Surgical History Head Surgeries/Procedures: Reports: None HEENT Surgical History: Reports: Cataract Surgery, Eye Surgery, Laser Surgery Neurological Surgical History: Reports: None Musculoskeletal Surgical History: Reports: Other (See Below) Other Musculoskeletal Surgeries/Procedures:: Hip Fracture Social & Family History - Family History Family Medical History: Noncontributory HEENT: Reports: None Cardiac: Reports: None Respiratory: Reports: None GI: Reports: None OBGYN: Reports: None Musculoskeletal: Reports: Fibromyalgia Other Musculoskeletal Family History: cousin Neurological: Reports: None Psychiatric: Reports: None Oncologic: Reports: Breast Other Oncologic Family History: Aunt had breast cancer - Tobacco Use Smoking Status *Q: Former Smoker Years of Tobacco use: 43 Packs/Tins Daily: 0.5 Used Tobacco, but Quit: Yes Month/Year Tobacco Last Used: March Second Hand Smoke Exposure: No - Caffeine Use Caffeine Use: Reports: Coffee, Soda, Tea Caffeine Use Comment: 4 cups in morning and 1 in the evening - Alcohol Use Days Per Week of Alcohol Use: 0 - Recreational Drug Use Recreational Drug Use: Yes Drug Use in Last 12 Months: Yes Recreational Drug Type: Reports: Marijuana/Hashish Other Recreational Drug Type: Pt admits to having smoked pot 2 weeks ago Recreational Drug Use Frequency: Socially - Living Situation & Occupation Living situation: Reports: Other (homeless) Occupation: Unemployed Review of Systems - Review of Systems Review Of Systems: ROS reveals no pertinent complaints other than HPI. ED EXAM, GENERAL - Physical Exam Exam: See Below Exam Limited By: No Limitations General Appearance: Alert, WD/WN, No Apparent Distress Eye Exam: Bilateral Eye: Other (left eye cloudy) Ears: Normal External Exam, Normal Canal, Hearing Grossly Normal, Normal TMs Nose: Normal Inspection, Normal Mucosa, No Blood Throat/Mouth: Normal Inspection, Normal Lips, Normal Teeth, Normal Gums, Normal Oropharynx, Normal Voice, No Airway Compromise Head: Atraumatic, Normocephalic Neck: Normal Inspection, Supple, Non-Tender, Full Range of Motion Respiratory/Chest: Crackles (bases bilateral) Cardiovascular: Normal Peripheral Pulses, Regular Rate, Rhythm, No Edema, No Gallop, No JVD, No Murmur, No Rub GI/Abdominal: Other (tender hematomas from heparin shots.) (Female) Exam: Deferred Rectal (Female) Exam: Deferred Back Exam: Normal Inspection, Full Range of Motion, NT Neurological: Alert, Oriented, CN II-XII Intact, Normal Cognition, Normal Gait, Normal Reflexes, No Motor/Sensory Deficits Psychiatric: Normal Affect, Normal Mood Skin Exam: Ecchymosis Lymphatic: No Adenopathy ED TRAUMA EXTREMITY PROCEDURES - Splinting Left Upper Extremity Splint Site: Left upper arm Pre-Procedure NV Status: Normal Post-Procedure NV Status: Normal Splint Material: Fiberglass, Sling Splint Design: Volar, Posterior, Sling Applied & Form Fitted By: Provider, Nurse Provider Post-Splint Application NV Check: NV Status Normal, Good Position Complications: No Course - Vital Signs Last Recorded V/S: Last Vital Signs Temp 97.2 F 05/12/17 12:32 Pulse 84 05/12/17 12:32 Resp 16 05/12/17 12:32 BP 96/62 05/12/17 12:32 Pulse Ox 93 L 05/12/17 12:32 - Orders/Labs/Meds Labs: Laboratory Tests 05/12/17 05/12/17 Range/Units 15:04 15:04 WBC 16.1 H (5.0-10.0) 10^3/uL RBC 3.76 L (4.2-5.4) 10^6/uL Hgb 11.4 L D (12.0-16.0) g/dL Hct 35.3 L (37.0-47.0) % MCV 93.9 (80-100) fL MCH 30.3 (27.0-34.0) pg MCHC 32.3 L (33.0-35.0) g/dL Plt Count 409 (150-450) 10^3/uL Neut % (Auto) 86.5 H (42.2-75.2) % Lymph % (Auto) 7.5 L (20.5-50.1) % [place] % (Auto) 4.4 (2-8) % Eos % (Auto) 0.9 L (1.0-3.0) % Baso % (Auto) 0.7 (0.0-1.0) % Add Manual Diff Yes Neutrophils % (Manual) 73 (42-75) % Band Neutrophils % 7 % Lymphocytes % (Manual) 9 L (20-50) % Monocytes % (Manual) 7 (2-8) % Eosinophils % (Manual) 2 (1-3) % Basophils % (Manual) 2 Toxic Granulation 1+ slight Platelet Estimate Adequate Sodium 134 L (135-145) mmol/L Potassium 4.8 (3.6-5.0) mmol/L Chloride 98 L (101-111) mmol/L Carbon Dioxide 26.0 (21.0-31.0) mmol/L Anion Gap 14.8 BUN 13 D (7-18) mg/dL Creatinine 1.9 H D (0.6-1.3) mg/dL Est Cr Clr Drug Dosing 26.05 mL/min Estimated GFR (MDRD) 27 BUN/Creatinine Ratio 6.84 Glucose 175 H (74-105) mg/dL Calcium 8.5 D (8.4-10.2) mg/dl Total Bilirubin 0.4 (0.2-1.0) mg/dL AST 34 (10-42) IU/L ALT 16 (10-60) IU/L Alkaline Phosphatase 111 (42-121) IU/L Total Protein 7.4 (6.7-8.2) g/dl Albumin 3.0 L (3.2-5.5) g/dl Globulin 4.4 Albumin/Globulin Ratio 0.68 Ethyl Alcohol < 5 mg/dL Meds: Medications Discontinued Medications Generic Name Dose Route Start Last Admin Trade Name Cathy PRN Reason Stop Dose Admin Hydromorphone HCl Confirm 05/12/17 16:07 05/12/17 16:24 Dilaudid Administered 05/12/17 16:08 Not Given Dose 0.5 mg .ROUTE .STK-MED ONE Hydromorphone HCl 0.5 mg 05/12/17 16:10 05/12/17 16:10 Dilaudid IVPUSH 05/12/17 16:11 0.5 mg ONETIME ONE Administration - Re-Assessments/Exams Free Text/Narrative Re-Assessment/Exam: 05/12/17 [id number] Villagomez as well as Dr. Flower. There was concern of the patient going home, pain control, and the patient being able to be compliant with her hemodialysis. The decision was made to transfer the patient to [facility]. 05/12/[id number] Galindo, Orthopedic surgeon, was called and informed of the patient case as well. He was informed of the splint and sling applied. He states he will follow up with the patient in the hospital. Departure - Departure Time of Disposition: 16:00 Disposition: DC/Tfer to Acute Hospital 02 Clinical Impression: Fracture of humerus Qualifiers: Encounter type: initial encounter Humerus Location: proximal Fracture type: closed Fracture morphology: unspecified fracture morphology Laterality: left Qualified Code(s): S42.202A - Unspecified fracture of upper end of left humerus , initial encounter for closed fracture - Discharge Information Referrals: PCP,None [Primary Care Provider] - Forms: ED Department Discharge, Interfacility Transfer [facility]
[2017-05-12 15:52] LABS: CHLORIDE,CL 98 mmol/L (101-111); SODIUM,NA 134 mmol/L (135-145)
[2017-05-12] MEDS ORDERED: HYDROmorphone 0.5 MG/0.5 ML Syringe ONE (16:07)
[2017-05-12] MEDS ORDERED: HYDROmorphone 0.5 MG/0.5 ML Syringe IVPUSH ONE (16:10)
== END 2017-05-12 16:26 ==
LOC: DL.ED 12:28
DX: S42.202A Unspecified fracture of upper end of left humerus, initial encounter for closed fracture (principal); E78.00 Pure hypercholesterolemia, unspecified; I25.2 Old myocardial infarction; J44.9 Chronic obstructive pulmonary disease, unspecified; I12.9 Hypertensive chronic kidney disease with stage 1 through stage 4 chronic kidney disease, or unspecified chronic kidney disease; N18.9 Chronic kidney disease, unspecified; E11.22 Type 2 diabetes mellitus with diabetic chronic kidney disease; W19.XXXA Unspecified fall, initial encounter; Z88.6 Allergy status to analgesic agent; Z87.891 Personal history of nicotine dependence; Z95.5 Presence of coronary angioplasty implant and graft; Z88.5 Allergy status to narcotic agent; Z88.8 Allergy status to other drugs, medicaments and biological substances; Z79.4 Long term (current) use of insulin; Z79.82 Long term (current) use of aspirin; Z79.899 Other long term (current) drug therapy
CPT/HCPCS: 29105; 36415; 73030; 80053; 85025; 96374; 99285; G0480; J1170

== ENCOUNTER 2017-05-25 15:58 | Emergency (ER) | payer MEDICAID, OTHER ==
[2017-05-25 17:47] VITALS: BP 166/67
[2017-05-25] MEDS ORDERED: traMADol 50 MG Tab PO ONE (18:23)
--- NOTE | 2017-05-25 18:36 | EDM.PDOC ---
Scribed by Tiera Clifton 05/25/17 [id number] for Munir Montero MD ED HPI GENERAL MEDICAL PROBLEM - General Chief Complaint: Upper Extremity Injury/Pain Stated Complaint: BP HIGH. PAIN IN L ARM NO PHONE Time Seen by Provider: 05/25/17 17:18 Source of Information: Reports: Patient, RN, RN Notes Reviewed History Limitations: Reports: No Limitations - History of Present Illness INITIAL COMMENTS - FREE TEXT/NARRATIVE: Patient presents from [facility] with complaint of left upper extremity pain and hypertension. Patient states that she was sent from clinic, clinic records were faxed, but no one called to give report or inform us that the patient was coming to the ER. Patient states that she doesn't know why her arm hurts, however, the review of ER visit from 05/12/17 reveals that the patient had a ground level and sustained a proximal left humerus fracture and was in need of dialysis and was transferred to [facility] for evaluation and treatment. Patient is unable to provide any further history. Later in the course of the ER stay the patient asked if anything was going to be done about her cough and fever. Patient has been seen cough while in the ER and has been afebrile. Location: Reports: Upper Extremity, Left Quality: Reports: Ache Severity: Mild Improves with: Reports: None Worsens with: Reports: None Associated Symptoms: Reports: No Other Symptoms Left Upper Arm Pain Score (Numeric/FACES): 8 - Related Data Allergies Allergy/AdvReac Type Severity Reaction Status Date / Time capsaicin Allergy UNKNOWN Verified 05/25/17 17:47 codeine Allergy Nausea and Verified 05/25/17 17:47 Vomiting ibuprofen Allergy Itching Verified 05/25/17 17:47 pregabalin Allergy CONTACT Verified 05/25/17 17:47 DERMATITIS ALLERGY Home Meds: Home Meds Carvedilol 12.5 mg PO BID 07/19/16 [History] Insulin Detemir [Levemir] 5 unit SUBCUT BEDTIME 07/19/16 [History] Mometasone/Formoterol [Dulera 100-5 MCG] 2 puff IN DAILY 07/19/16 [History] Simvastatin [Zocor] 10 mg PO BEDTIME 07/19/16 [History] Ticagrelor [Brilinta] 90 mg PO BID 07/19/16 [History] Tiotropium [Spiriva HandiHaler] 18 mcg IN DAILY 07/19/16 [History] Bumetanide [Bumex] 1 mg PO .QPM tablet 08/03/16 [Rx] Bumetanide [Bumex] 2 mg PO DAILY tablet 08/03/16 [Rx] Acetaminophen [Pain Reliever] 500 mg PO Q8H PRN 04/06/17 [History] Albuterol [Proventil Neb Soln] 0.63 mg NEB Q4HRRT 04/06/17 [History] Aspirin 325 mg PO DAILY 04/06/17 [History] Iron Polysaccharide Complex [Ferric X-150] 150 mg PO DAILY 04/06/17 [History] Ranitidine [Zantac] 150 mg PO DAILY 04/06/17 [History] Sertraline HCl 50 mg PO BEDTIME 04/06/17 [History] Past Medical History HEENT History: Reports: Glaucoma, Impaired Vision Other HEENT History: 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 Cardiovascular History: Reports: High Cholesterol, Hypertension, [place], Stents Respiratory History: Reports: Asthma, COPD, SOB Gastrointestinal History: Reports: Gastritis, GERD, Hemorrhoids Genitourinary History: Reports: Chronic Renal Insuffiency, Dialysis [employer] History: Reports: 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, Other (See Below) Other OB/BYN History: hysterectomy Musculoskeletal History: Reports: Arthritis, Back Pain, Chronic, Fibromyalgia Neurological History: Reports: Migraines Other Neuro History: hx of migraines; states she doesn't get them anymore Psychiatric History: Reports: None, Bipolar Endocrine/Metabolic History: Reports: Diabetes, Type II Hematologic History: Reports: None Immunologic History: Reports: None Oncologic (Cancer) History: Reports: None Dermatologic History: Reports: Cellulitis, Other (See Below) Other Dermatologic History: poor circulation in legs - Infectious Disease History Infectious Disease History: Reports: None - Past Surgical History Head Surgeries/Procedures: Reports: None HEENT Surgical History: Reports: Cataract Surgery, Eye Surgery, Laser Surgery Neurological Surgical History: Reports: None Musculoskeletal Surgical History: Reports: Other (See Below) Other Musculoskeletal Surgeries/Procedures:: Hip Fracture Social & Family History - Family History Family Medical History: Noncontributory HEENT: Reports: None Cardiac: Reports: None Respiratory: Reports: None GI: Reports: None OBGYN: Reports: None Musculoskeletal: Reports: Fibromyalgia Other Musculoskeletal Family History: cousin Neurological: Reports: None Psychiatric: Reports: None Oncologic: Reports: Breast Other Oncologic Family History: Aunt had breast cancer - Tobacco Use Smoking Status *Q: Former Smoker Years of Tobacco use: 43 Packs/Tins Daily: 0.5 Used Tobacco, but Quit: Yes Month/Year Tobacco Last Used: March Second Hand Smoke Exposure: No - Caffeine Use Caffeine Use: Reports: Coffee, Soda, Tea Caffeine Use Comment: 4 cups in morning and 1 in the evening - Alcohol Use Days Per Week of Alcohol Use: 0 - Recreational Drug Use Recreational Drug Use: Yes Drug Use in Last 12 Months: Yes Recreational Drug Type: Reports: Marijuana/Hashish Other Recreational Drug Type: Pt admits to having smoked pot 2 weeks ago Recreational Drug Use Frequency: Socially - Living Situation & Occupation Living situation: Reports: Other (homeless) Occupation: Unemployed Review of Systems - Review of Systems Review Of Systems: ROS reveals no pertinent complaints other than HPI. ED EXAM, GENERAL - Physical Exam Exam: See Below Exam Limited By: No Limitations General Appearance: Other (chronically ill appearing. ) Nose: Normal Inspection Throat/Mouth: Normal Voice, No Airway Compromise Head: Atraumatic, Normocephalic Neck: Normal Inspection, Supple, Non-Tender, Full Range of Motion Respiratory/Chest: No Respiratory Distress, No Accessory Muscle Use, Decreased Breath Sounds, Rales. No: Rhonchi, Wheezing Cardiovascular: Regular Rate, Rhythm Peripheral Pulses: 3+: Radial (L), Radial (R) GI/Abdominal: Normal Bowel Sounds, Soft, Non-Tender, No Distention, Pelvis Stable Back Exam: Normal Inspection Extremities: No Pedal Edema, Normal Capillary Refill, Arm Pain (left shoulder and upper arm pain with mild generalized swelling. No erythema. Skin intact.), Limited Range of Motion (left shoulder). No: Joint Swelling Neurological: Alert, Oriented, CN II-XII Intact, Normal Cognition, Normal Gait, Normal Reflexes, No Motor/Sensory Deficits Skin Exam: Warm, Dry, Intact, Normal Color, No Rash Course - Vital Signs Last Recorded V/S: Last Vital Signs Temp 36.4 C 05/25/17 16:50 Pulse 78 05/25/17 16:50 Resp 18 05/25/17 16:50 BP 166/67 H 05/25/17 16:50 Pulse Ox 98 04/05/18 16:50 - Orders/Labs/Meds Orders: Active Orders 24 hr Category Date Time Status Chest 1V Frontal [CR] Stat Exams 05/25/17 18:09 Taken Elbow Min 3V Lt [CR] Urgent Exams 05/25/17 17:44 Ordered Shoulder Comp Lt [CR] Urgent Exams 05/25/17 17:44 Taken Labs: Laboratory Tests 05/25/17 05/25/17 Range/Units 17:55 17:55 WBC 9.5 (5.0-10.0) 10^3/uL RBC 3.30 L (4.2-5.4) 10^6/uL Hgb 10.4 L (12.0-16.0) g/dL Hct 31.6 L (37.0-47.0) % MCV 95.8 (80-100) fL MCH 31.5 (27.0-34.0) pg MCHC 32.9 L (33.0-35.0) g/dL Plt Count 397 (150-450) 10^3/uL Neut % (Auto) 66.0 (42.2-75.2) % Lymph % (Auto) 20.6 (20.5-50.1) % [place] % (Auto) 8.4 H (2-8) % Eos % (Auto) 3.7 H (1.0-3.0) % Baso % (Auto) 1.3 H (0.0-1.0) % Sodium 137 (135-145) mmol/L Potassium 3.8 (3.6-5.0) mmol/L Chloride 99 L (101-111) mmol/L Carbon Dioxide 29.0 (21.0-31.0) mmol/L Anion Gap 12.8 BUN 43 H D (7-18) mg/dL Creatinine 2.4 H (0.6-1.3) mg/dL Est Cr Clr Drug Dosing 20.17 mL/min Estimated GFR (MDRD) 21 BUN/Creatinine Ratio 17.91 Glucose 216 H (74-105) mg/dL Calcium 7.9 L (8.4-10.2) mg/dl Total Bilirubin 0.6 (0.2-1.0) mg/dL AST 22 (10-42) IU/L ALT 14 (10-60) IU/L Alkaline Phosphatase 82 (42-121) IU/L B-Natriuretic Peptide 2950 H (0-100) pg/ml Total Protein 6.6 L (6.7-8.2) g/dl Albumin 2.7 L (3.2-5.5) g/dl Globulin 3.9 Albumin/Globulin Ratio 0.69 Meds: Medications Discontinued Medications Generic Name Dose Route Start Last Admin Trade Name Cathy PRN Reason Stop Dose Admin Tramadol HCl 50 mg 05/25/17 18:23 Ultram PO 05/25/17 18:24 ONETIME ONE - Radiology Interpretation Free Text/Narrative:: X-ray chest: Chronic changes. No acute consolidations. See rad report. X-ray left shoulder: Stable left proximal humerus impaction fracture without significant change from 05/12/17. See rad report. Departure - Departure Time of Disposition: 18:29 Disposition: Home, Self-Care 01 Condition: Fair Clinical Impression: Chronic hypertension, End stage renal disease on dialysis Left humeral fracture Qualifiers: Encounter type: subsequent encounter Humerus Location: proximal Fracture type: closed Fracture morphology: other fracture Fracture alignment: nondisplaced Fracture healing: with routine healing Qualified Code(s): S42.295D - Other nondisplaced fracture of upper end of left humerus, subsequent encounter for fracture with routine healing - Discharge Information Instructions: Humerus Fracture Treated With Immobilization Forms: ED Department Discharge Additional Instructions: RX: Tramadol 50mg. Wear the sling on the left arm until instruction by orthopedic surgeon to remove it. Follow up for your regular scheduled dialysis as planned. Follow up with orthopedic surgeon as instructed at the time of discharge from [facility]. - My Orders Last 24 Hours: My Active Orders 05/25/17 17:44 Elbow Min 3V Lt [CR] Urgent Shoulder Comp Lt [CR] Urgent 05/25/17 18:09 Chest 1V Frontal [CR] Stat - Assessment/Plan Last 24 Hours: My Active Orders 05/25/17 17:44 Elbow Min 3V Lt [CR] Urgent Shoulder Comp Lt [CR] Urgent 05/25/17 18:09 Chest 1V Frontal [CR] Stat I have read and agree with the documentation that has been completed regarding this visit. By signing this record, I attest that the documentation was completed in my physical presence and is an accurate record of the encounter.
== END 2017-05-25 19:03 | disposition home or self-care (01) ==
LOC: DL.ED 15:58
DX: I12.0 Hypertensive chronic kidney disease with stage 5 chronic kidney disease or end stage renal disease (principal); N18.6 End stage renal disease; S42.295D Other nondisplaced fracture of upper end of left humerus, subsequent encounter for fracture with routine healing; K21.9 Gastro-esophageal reflux disease without esophagitis; J44.9 Chronic obstructive pulmonary disease, unspecified; I25.2 Old myocardial infarction; E11.22 Type 2 diabetes mellitus with diabetic chronic kidney disease; E78.00 Pure hypercholesterolemia, unspecified; F17.210 Nicotine dependence, cigarettes, uncomplicated; Z99.2 Dependence on renal dialysis; Z88.8 Allergy status to other drugs, medicaments and biological substances; Z88.5 Allergy status to narcotic agent; Z79.899 Other long term (current) drug therapy; Z79.4 Long term (current) use of insulin
CPT/HCPCS: 36415; 71045; 73030; 80053; 83880; 85025; 99283; A9270

== ENCOUNTER 2017-05-28 18:49 | Emergency (ER) | payer MEDICAID, OTHER ==
[2017-05-28 18:56] VITALS: BP 136/81
[2017-05-28] MEDS ORDERED: Albuterol/Ipratropium 3.0-0.5 MG/3 ML Neb Soln NEB ONE (19:37)
[2017-05-28 20:02] LABS: ANION GAP 16.1
[2017-05-28] MEDS ORDERED: cefTRIAXone 1 GM Vial IVPUSH ONE (20:45)
--- NOTE | 2017-05-28 21:49 | EDM.PDOC ---
ED HPI GENERAL MEDICAL PROBLEM - General Chief Complaint: Respiratory Problem Stated Complaint: BY AMBULANCE SOB POSSIBLE BROKEN ARM Time Seen by Provider: 05/28/17 19:42 Source of Information: Reports: Patient, EMS, Family, RN, RN Notes Reviewed History Limitations: Reports: No Limitations - History of Present Illness INITIAL COMMENTS - FREE TEXT/NARRATIVE: Pt presents to the ER with c/o left arm pain and increased SOB. EMS states the patient O2 saturation was 77% en route, was given a nebulizer and sats improved to mid 80's. Patient states she has a broken left arm and is having pain and swelling in the arm. She states she feels as if she is getting sick and is having a tough time breathing. Pt denies N/V/D. She states she may have had some fever and chills, and states her chest feels heavy when she breathes. Onset: Gradual Left Upper Arm Pain Score (Numeric/FACES): 9 - Related Data Allergies Allergy/AdvReac Type Severity Reaction Status Date / Time capsaicin Allergy UNKNOWN Verified 05/28/17 18:54 codeine Allergy Nausea and Verified 05/28/17 18:54 Vomiting ibuprofen Allergy Itching Verified 05/28/17 18:54 pregabalin Allergy CONTACT Verified 05/28/17 18:54 DERMATITIS ALLERGY Home Meds: Home Meds Carvedilol 12.5 mg PO BID 07/19/16 [History] Insulin Detemir [Levemir] 5 unit SUBCUT BEDTIME 07/19/16 [History] Mometasone/Formoterol [Dulera 100-5 MCG] 2 puff IN DAILY 07/19/16 [History] Simvastatin [Zocor] 10 mg PO BEDTIME 07/19/16 [History] Ticagrelor [Brilinta] 90 mg PO BID 07/19/16 [History] Tiotropium [Spiriva HandiHaler] 18 mcg IN DAILY 07/19/16 [History] Bumetanide [Bumex] 1 mg PO .QPM tablet 08/03/16 [Rx] Bumetanide [Bumex] 2 mg PO DAILY tablet 08/03/16 [Rx] Acetaminophen [Pain Reliever] 500 mg PO Q8H PRN 04/06/17 [History] Albuterol [Proventil Neb Soln] 0.63 mg NEB Q4HRRT 04/06/17 [History] Aspirin 325 mg PO DAILY 04/06/17 [History] Iron Polysaccharide Complex [Ferric X-150] 150 mg PO DAILY 04/06/17 [History] Ranitidine [Zantac] 150 mg PO DAILY 04/06/17 [History] Sertraline HCl 50 mg PO BEDTIME 04/06/17 [History] Past Medical History HEENT History: Reports: Glaucoma, Impaired Vision Other HEENT History: 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 Cardiovascular History: Reports: High Cholesterol, Hypertension, [place], Stents Respiratory History: Reports: Asthma, COPD, SOB Gastrointestinal History: Reports: Gastritis, GERD, Hemorrhoids Genitourinary History: Reports: Chronic Renal Insuffiency, Dialysis 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: 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, Other (See Below) Other OB/BYN History: hysterectomy Musculoskeletal History: Reports: Arthritis, Back Pain, Chronic, Fibromyalgia Neurological History: Reports: Migraines Other Neuro History: hx of migraines; states she doesn't get them anymore Psychiatric History: Reports: Bipolar Endocrine/Metabolic History: Reports: Diabetes, Type II Hematologic History: Reports: None Immunologic History: Reports: None Oncologic (Cancer) History: Reports: None Dermatologic History: Reports: Cellulitis, Other (See Below) Other Dermatologic History: poor circulation in legs - Infectious Disease History Infectious Disease History: Reports: None - Past Surgical History Head Surgeries/Procedures: Reports: None HEENT Surgical History: Reports: Cataract Surgery, Eye Surgery, Laser Surgery Neurological Surgical History: Reports: None Musculoskeletal Surgical History: Reports: Other (See Below) Other Musculoskeletal Surgeries/Procedures:: Hip Fracture Social & Family History - Family History Family Medical History: Noncontributory HEENT: Reports: None Cardiac: Reports: None Respiratory: Reports: None GI: Reports: None OBGYN: Reports: None Musculoskeletal: Reports: Fibromyalgia Other Musculoskeletal Family History: cousin Neurological: Reports: None Psychiatric: Reports: None Oncologic: Reports: Breast Other Oncologic Family History: Aunt had breast cancer - Tobacco Use Smoking Status *Q: Former Smoker Years of Tobacco use: 43 Packs/Tins Daily: 0.5 Used Tobacco, but Quit: Yes Month/Year Tobacco Last Used: quit 6 weeks ago Second Hand Smoke Exposure: No - Caffeine Use Caffeine Use: Reports: Coffee, Soda, Tea Caffeine Use Comment: 4 cups in morning and 1 in the evening - Alcohol Use Days Per Week of Alcohol Use: 0 - Recreational Drug Use Recreational Drug Use: No Drug Use in Last 12 Months: Yes Recreational Drug Type: Reports: Marijuana/Hashish Other Recreational Drug Type: Pt admits to having smoked pot 2 weeks ago Recreational Drug Use Frequency: Socially - Living Situation & Occupation Living situation: Reports: Other (homeless) Occupation: Unemployed ED ROS GENERAL - Review of Systems Review Of Systems: ROS reveals no pertinent complaints other than HPI. ED EXAM, GENERAL - Physical Exam Exam: See Below Exam Limited By: Respiratory Distress General Appearance: Alert, WD/WN, Moderate Distress Eye Exam: Bilateral Eye: EOMI, Vision Changes, Other (cataracts) Ears: Normal External Exam, Hearing Grossly Normal Nose: Normal Inspection Throat/Mouth: Normal Inspection, Normal Voice, No Airway Compromise Head: Atraumatic, Normocephalic Neck: Normal Inspection, Supple, Non-Tender, Full Range of Motion Respiratory/Chest: Respiratory Distress (mild to moderate), Crackles (throughout ) Cardiovascular: Normal Peripheral Pulses, Regular Rate, Rhythm, No Gallop, No JVD, No Murmur, No Rub Peripheral Pulses: 1+: Radial (L), 2+: Radial (R), Dorsalis Pedis (L), Dorsalis Pedis (R) GI/Abdominal: Normal Bowel Sounds, Soft, Non-Tender, No Distention (Female) Exam: Deferred Rectal (Female) Exam: Deferred Back Exam: Normal Inspection, Decreased Range of Motion Extremities: Normal Capillary Refill, Joint Swelling (left elbow and wrist), Arm Pain (left), Limited Range of Motion (left arm), Other (moderate edema to the left arm and hand) Neurological: Alert, Oriented, Normal Cognition, No Motor/Sensory Deficits Psychiatric: Normal Affect, Normal Mood Skin Exam: Warm, Dry, Intact, Normal Color, No Rash Lymphatic: No Adenopathy EKG INTERPRETATION EKG Date: 05/28/17 Time: 20:26 Rhythm: Other (sinus tachycardia) Rate (Beats/Min): 101 Comparison: Change From Previous EKG Course - Vital Signs Last Recorded V/S: Last Vital Signs Temp 99 F 05/28/17 18:50 Pulse 103 H 05/28/17 19:42 Resp 22 H 05/28/17 18:50 BP 136/81 05/28/17 18:50 Pulse Ox 94 L 05/28/17 19:42 - Orders/Labs/Meds Orders: Active Orders 24 hr Category Date Time Status RT Aerosol Therapy [RC] ASDIRECTED Care 05/28/17 19:37 Active CULTURE BLOOD [BC] Stat Lab 05/28/17 19:30 Received CULTURE BLOOD [BC] Stat Lab 05/28/17 21:55 Results Labs: Laboratory Tests 05/28/17 05/28/17 05/28/17 Range/Units 19:30 19:30 19:30 WBC 18.5 H (5.0-10.0) 10^3/uL RBC 3.02 L (4.2-5.4) 10^6/uL Hgb 9.6 L (12.0-16.0) g/dL Hct 29.1 L (37.0-47.0) % MCV 96.4 (80-100) fL MCH 31.8 (27.0-34.0) pg MCHC 33.0 (33.0-35.0) g/dL Plt Count 400 (150-450) 10^3/uL Neut % (Auto) 87.9 H (42.2-75.2) % Lymph % (Auto) 3.9 L (20.5-50.1) % [place] % (Auto) 5.1 (2-8) % Eos % (Auto) 2.6 (1.0-3.0) % Baso % (Auto) 0.5 (0.0-1.0) % D-Dimer, Quantitative (0-400) ng/mL Sodium 130 L (135-145) mmol/L Potassium 4.1 (3.6-5.0) mmol/L Chloride 93 L (101-111) mmol/L Carbon Dioxide 25.0 (21.0-31.0) mmol/L Anion Gap 16.1 BUN 50 H (7-18) mg/dL Creatinine 3.1 H (0.6-1.3) mg/dL Est Cr Clr Drug Dosing 15.96 mL/min Estimated GFR (MDRD) 15 BUN/Creatinine Ratio 16.12 Glucose 165 H (74-105) mg/dL Lactic Acid 0.9 (0.5-2.2) mmol/L Calcium 8.0 L (8.4-10.2) mg/dl Total Bilirubin 0.9 (0.2-1.0) mg/dL AST 15 (10-42) IU/L ALT 11 (10-60) IU/L Alkaline Phosphatase 84 (42-121) IU/L Troponin I 0.13 H* (0.00-0.02) ng/ml B-Natriuretic Peptide 1340 H (0-100) pg/ml Total Protein 7.0 (6.7-8.2) g/dl Albumin 2.7 L (3.2-5.5) g/dl Globulin 4.3 Albumin/Globulin Ratio 0.63 /10/07 Range/Units 19:30 WBC (5.0-10.0) 10^3/uL RBC (4.2-5.4) 10^6/uL Hgb (12.0-16.0) g/dL Hct (37.0-47.0) % MCV (80-100) fL MCH (27.0-34.0) pg MCHC (33.0-35.0) g/dL Plt Count (150-450) 10^3/uL Neut % (Auto) (42.2-75.2) % Lymph % (Auto) (20.5-50.1) % [place] % (Auto) (2-8) % Eos % (Auto) (1.0-3.0) % Baso % (Auto) (0.0-1.0) % D-Dimer, Quantitative 2200 H (0-400) ng/mL Sodium (135-145) mmol/L Potassium (3.6-5.0) mmol/L Chloride (101-111) mmol/L Carbon Dioxide (21.0-31.0) mmol/L Anion Gap BUN (7-18) mg/dL Creatinine (0.6-1.3) mg/dL Est Cr Clr Drug Dosing mL/min Estimated GFR (MDRD) BUN/Creatinine Ratio Glucose (74-105) mg/dL Lactic Acid (0.5-2.2) mmol/L Calcium (8.4-10.2) mg/dl Total Bilirubin (0.2-1.0) mg/dL AST (10-42) IU/L ALT (10-60) IU/L Alkaline Phosphatase (42-121) IU/L Troponin I (0.00-0.02) ng/ml B-Natriuretic Peptide (0-100) pg/ml Total Protein (6.7-8.2) g/dl Albumin (3.2-5.5) g/dl Globulin Albumin/Globulin Ratio Meds: Medications Discontinued Medications Generic Name Dose Route Start Last Admin Trade Name Cathy PRN Reason Stop Dose Admin Albuterol/Ipratropium 3 ml 05/28/17 19:37 05/28/17 19:42 Duoneb 3.0-0.5 Mg/3 Ml NEB 05/28/17 19:38 3 ml ONETIME ONE Administration Ceftriaxone Sodium 1 gm 05/28/17 20:45 05/28/17 20:49 Rocephin IVPUSH 05/28/17 20:46 1 gm ONETIME ONE Administration - Radiology Interpretation Free Text/Narrative:: Chest xray: IMPRESSION: - Interval development of mild interstitial pulmonary edema. - Interval development of a small RIGHT pleural effusion. - There is a mildly comminuted and displaced fracture of the proximal left humerus, unchanged compared with 05/25/2017 when differences in technique between the 2 studies are taken into account. - Incidental/non-acute findings are described above. THANK YOU FOR THIS CONSULTATION. Dictated and Authenticated by: Yas Valero MD 05/28/2017 9:15 PM Central Time ([place] & [place]) See rad report: Departure - Departure Time of Disposition: 21:47 Disposition: DC/Tfer to Acute Hospital 02 Condition: Poor, Serious Clinical Impression: Hypoxemia, Respiratory distress, Elevated troponin - Discharge Information Referrals: PCP,None [Primary Care Provider] - Forms: ED Department Discharge, Interfacility Transfer EMTALA - My Orders Last 24 Hours: My Active Orders 05/28/17 19:30 CULTURE BLOOD [BC] Stat 05/28/17 19:37 RT Aerosol Therapy [RC] ASDIRECTED 05/28/17 21:55 CULTURE BLOOD [BC] Stat - Assessment/Plan Last 24 Hours: My Active Orders 05/28/17 19:30 CULTURE BLOOD [BC] Stat 05/28/17 19:37 RT Aerosol Therapy [RC] ASDIRECTED 05/28/17 21:55 CULTURE BLOOD [BC] Stat
--- NOTE | 2017-05-30 13:39 | EKG ---
05/28/2017 - ROSEMARY TALAMANTES - TIME: 8:30 p.m. After my reading, EKG shows sinus tachycardia at 101. [facility] /[id number]
== END 2017-05-28 22:25 ==
LOC: DL.ED 18:49
DX: R09.02 Hypoxemia (principal); R06.03 Acute respiratory distress; R79.89 Other specified abnormal findings of blood chemistry; I12.9 Hypertensive chronic kidney disease with stage 1 through stage 4 chronic kidney disease, or unspecified chronic kidney disease; N18.9 Chronic kidney disease, unspecified; E11.22 Type 2 diabetes mellitus with diabetic chronic kidney disease; E78.00 Pure hypercholesterolemia, unspecified; I25.2 Old myocardial infarction; Z88.5 Allergy status to narcotic agent; Z88.6 Allergy status to analgesic agent; Z88.8 Allergy status to other drugs, medicaments and biological substances; Z79.899 Other long term (current) drug therapy; Z79.4 Long term (current) use of insulin; Z79.82 Long term (current) use of aspirin; Z87.891 Personal history of nicotine dependence
CPT/HCPCS: 36415; 71045; 80053; 83605; 83880; 84484; 85025; 85379; 87040; 87804; 96374; 99285; J0696

== ENCOUNTER 2017-06-13 00:56 | Emergency (ER) | payer MEDICAID ==
[2017-06-13] MEDS ORDERED: LORazepam 2 MG/ML Syringe IVPUSH ONE (01:02)
[2017-06-13] MEDS ORDERED: Albuterol 0.083% 2.5 MG/3 ML Neb Soln NEB ONE (01:09)
[2017-06-13] MEDS ORDERED: Bumetanide 1 MG/4 ML MDV IVPUSH ONE (01:21)
[2017-06-13] MEDS ORDERED: Metoprolol Tartrate 5 MG/5 ML SDV IVPUSH ONE (01:36)
--- NOTE | 2017-06-13 01:40 | EDM.PDOC ---
ED HPI GENERAL MEDICAL PROBLEM - General Chief Complaint: Respiratory Problem Stated Complaint: AMBULANCE Time Seen by Provider: 06/13/17 01:00 Source of Information: Reports: Patient, EMS History Limitations: Reports: No Limitations - History of Present Illness INITIAL COMMENTS - FREE TEXT/NARRATIVE: ED via [facility] with respiratory distress. EMS report onset approximately 20minutes prior to their arrival. Initial on scene O2 sat 72%, Albuterol and Duoneb given enroute. Patient notes not feeling well today, tired. Admits no dialysis since last week, Was due on Monday. - Related Data Allergies Allergy/AdvReac Type Severity Reaction Status Date / Time capsaicin Allergy UNKNOWN Verified 05/28/17 18:54 codeine Allergy Nausea and Verified 05/28/17 18:54 Vomiting ibuprofen Allergy Itching Verified 05/28/17 18:54 pregabalin Allergy CONTACT Verified 05/28/17 18:54 DERMATITIS ALLERGY Home Meds: Home Meds Carvedilol 12.5 mg PO BID 07/19/16 [History] Insulin Detemir [Levemir] 5 unit SUBCUT BEDTIME 07/19/16 [History] Mometasone/Formoterol [Dulera 100-5 MCG] 2 puff IN DAILY 07/19/16 [History] Simvastatin [Zocor] 10 mg PO BEDTIME 07/19/16 [History] Ticagrelor [Brilinta] 90 mg PO BID 07/19/16 [History] Tiotropium [Spiriva HandiHaler] 18 mcg IN DAILY 07/19/16 [History] Bumetanide [Bumex] 1 mg PO .QPM tablet 08/03/16 [Rx] Bumetanide [Bumex] 2 mg PO DAILY tablet 08/03/16 [Rx] Acetaminophen [Pain Reliever] 500 mg PO Q8H PRN 04/06/17 [History] Albuterol [Proventil Neb Soln] 0.63 mg NEB Q4HRRT 04/06/17 [History] Aspirin 325 mg PO DAILY 04/06/17 [History] Iron Polysaccharide Complex [Ferric X-150] 150 mg PO DAILY 04/06/17 [History] Ranitidine [Zantac] 150 mg PO DAILY 04/06/17 [History] Sertraline HCl 50 mg PO BEDTIME 04/06/17 [History] Past Medical History HEENT History: Reports: Glaucoma, Impaired Vision Other HEENT History: 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 Cardiovascular History: Reports: High Cholesterol, Hypertension, [place], Stents Respiratory History: Reports: Asthma, COPD, SOB Gastrointestinal History: Reports: Gastritis, GERD, Hemorrhoids Genitourinary History: Reports: Chronic Renal Insuffiency, Dialysis 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: 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, 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 (See Below) Other OB/BYN History: hysterectomy Musculoskeletal History: Reports: Arthritis, Back Pain, Chronic, Fibromyalgia Neurological History: Reports: Migraines Other Neuro History: hx of migraines; states she doesn't get them anymore Psychiatric History: Reports: Bipolar Endocrine/Metabolic History: Reports: Diabetes, Type II Hematologic History: Reports: None Immunologic History: Reports: None Oncologic (Cancer) History: Reports: None Dermatologic History: Reports: Cellulitis, Other (See Below) Other Dermatologic History: poor circulation in legs - Infectious Disease History Infectious Disease History: Reports: None - Past Surgical History Head Surgeries/Procedures: Reports: None HEENT Surgical History: Reports: Cataract Surgery, Eye Surgery, Laser Surgery Neurological Surgical History: Reports: None Musculoskeletal Surgical History: Reports: Other (See Below) Other Musculoskeletal Surgeries/Procedures:: Hip Fracture Social & Family History - Family History Family Medical History: Noncontributory HEENT: Reports: None Cardiac: Reports: None Respiratory: Reports: None GI: Reports: None OBGYN: Reports: None Musculoskeletal: Reports: Fibromyalgia Other Musculoskeletal Family History: cousin Neurological: Reports: None Psychiatric: Reports: None Oncologic: Reports: Breast Other Oncologic Family History: Aunt had breast cancer - Tobacco Use Smoking Status *Q: Former Smoker Years of Tobacco use: 43 Packs/Tins Daily: 0.5 Used Tobacco, but Quit: Yes Month/Year Tobacco Last Used: feburary Second Hand Smoke Exposure: No - Caffeine Use Caffeine Use: Reports: Coffee, Soda, Tea Caffeine Use Comment: 4 cups in morning and 1 in the evening - Alcohol Use Days Per Week of Alcohol Use: 0 - Recreational Drug Use Recreational Drug Use: Yes Drug Use in Last 12 Months: Yes Recreational Drug Type: Reports: Marijuana/Hashish Other Recreational Drug Type: Pt admits to having smoked pot 2 weeks ago Recreational Drug Use Frequency: Socially - Living Situation & Occupation Living situation: Reports: Other (homeless) Occupation: Unemployed ED ROS GENERAL - Review of Systems Review Of Systems: See Below Constitutional: Reports: Malaise HEENT: Reports: No Symptoms Respiratory: Reports: Shortness of Breath, Wheezing. Denies: Pleuritic Chest Pain, Cough Cardiovascular: Reports: No Symptoms Endocrine: Reports: No Symptoms GI/Abdominal: Reports: No Symptoms Musculoskeletal: Reports: No Symptoms Neurological: Reports: No Symptoms ED EXAM, GENERAL - Physical Exam Exam: See Below Exam Limited By: Respiratory Distress General Appearance: Alert, Moderate Distress Eye Exam: Bilateral Eye: EOMI Ears: Normal External Exam Nose: Normal Inspection Throat/Mouth: Normal Inspection Head: Atraumatic, Normocephalic Neck: Normal Inspection Respiratory/Chest: Respiratory Distress, Rales, Wheezing Cardiovascular: Regular Rate, Rhythm, Tachycardia. No: No Edema GI/Abdominal: Normal Bowel Sounds, Soft Extremities: Pedal Edema (left lower leg) Neurological: Alert, Oriented, Normal Cognition Psychiatric: Normal Affect, Anxious Skin Exam: Warm, Dry EKG INTERPRETATION Rhythm: NSR Course - Vital Signs Last Recorded V/S: Last Vital Signs Temp 97.2 F 06/13/17 00:59 Pulse 115 H 06/13/17 01:45 Resp 48 H 06/13/17 01:20 BP 187/90 H 06/13/17 01:45 Pulse Ox 99 06/13/17 01:20 - Orders/Labs/Meds Orders: Active Orders 24 hr Category Date Time Status EKG Documentation Completion [RC] URGENT Care 06/13/17 01:02 Active Glucose [Blood Glucose Check, Bedside] [RC] ONETIME Care 06/13/17 02:21 Active RT Aerosol Therapy [RC] ASDIRECTED Care 06/13/17 01:10 Active Chest 1V Frontal [CR] Urgent Exams 06/13/17 01:00 Taken CULTURE BLOOD [BC] Stat Lab 06/13/17 01:10 Received DD [D-DIMER QUANTITATIVE] [COAG] Stat Lab 06/13/17 01:10 Received Labs: Laboratory Tests 06/13/17 06/13/17 06/13/17 Range/Units 01:10 01:10 01:10 WBC 12.3 H (5.0-10.0) 10^3/uL RBC 3.72 L (4.2-5.4) 10^6/uL Hgb 11.5 L D (12.0-16.0) g/dL Hct 35.2 L (37.0-47.0) % MCV 94.6 (80-100) fL MCH 30.9 (27.0-34.0) pg MCHC 32.7 L (33.0-35.0) g/dL Plt Count 430 (150-450) 10^3/uL Neut % (Auto) 72.9 (42.2-75.2) % Lymph % (Auto) 19.4 L (20.5-50.1) % [place] % (Auto) 3.7 (2-8) % Eos % (Auto) 3.2 H (1.0-3.0) % Baso % (Auto) 0.8 (0.0-1.0) % ABG pH (7.35-7.45) ABG pCO2 (35-45) mmHg ABG pO2 (70-100) mmHg ABG HCO3 (22-26) mmol/L ABG O2 Saturation (95-100) % ABG Base Excess ((-2)-(+3)) mmol/L Cory Test O2 Delivery Device Oxygen Flow Rate Sodium 132 L (135-145) mmol/L Potassium 5.5 H (3.6-5.0) mmol/L Chloride 106 D (101-111) mmol/L Carbon Dioxide 17.0 L (21.0-31.0) mmol/L Anion Gap 14.5 BUN 91 H D (7-18) mg/dL Creatinine 4.4 H D (0.6-1.3) mg/dL Est Cr Clr Drug Dosing 10.75 mL/min Estimated GFR (MDRD) 10 BUN/Creatinine Ratio 20.68 Glucose 314 H (74-105) mg/dL POC Glucose (70-105) mg/dl Lactic Acid 0.9 (0.5-2.2) mmol/L Calcium 8.3 L (8.4-10.2) mg/dl Total Bilirubin 0.5 (0.2-1.0) mg/dL AST 15 (10-42) IU/L ALT 10 (10-60) IU/L Alkaline Phosphatase 94 (42-121) IU/L Troponin I 0.03 H* (0.00-0.02) ng/ml B-Natriuretic Peptide 1720 H (0-100) pg/ml Total Protein 7.8 (6.7-8.2) g/dl Albumin 3.0 L (3.2-5.5) g/dl Globulin 4.8 Albumin/Globulin Ratio 0.63 06/13/17 06/13/17 Range/Units 01:55 02:51 WBC (5.0-10.0) 10^3/uL RBC (4.2-5.4) 10^6/uL Hgb (12.0-16.0) g/dL Hct (37.0-47.0) % MCV (80-100) fL MCH (27.0-34.0) pg MCHC (33.0-35.0) g/dL Plt Count (150-450) 10^3/uL Neut % (Auto) (42.2-75.2) % Lymph % (Auto) (20.5-50.1) % [place] % (Auto) (2-8) % Eos % (Auto) (1.0-3.0) % Baso % (Auto) (0.0-1.0) % ABG pH 7.23 L (7.35-7.45) ABG pCO2 36 (35-45) mmHg ABG pO2 78 (70-100) mmHg ABG HCO3 14.5 L (22-26) mmol/L ABG O2 Saturation 94 L (95-100) % ABG Base Excess -13 L ((-2)-(+3)) mmol/L Cory Test Rb O2 Delivery Device Non rebr mask Oxygen Flow Rate 10 Sodium (135-145) mmol/L Potassium (3.6-5.0) mmol/L Chloride (101-111) mmol/L Carbon Dioxide (21.0-31.0) mmol/L Anion Gap BUN (7-18) mg/dL Creatinine (0.6-1.3) mg/dL Est Cr Clr Drug Dosing mL/min Estimated GFR (MDRD) BUN/Creatinine Ratio Glucose (74-105) mg/dL POC Glucose 187 H (70-105) mg/dl Lactic Acid (0.5-2.2) mmol/L Calcium (8.4-10.2) mg/dl Total Bilirubin (0.2-1.0) mg/dL AST (10-42) IU/L ALT (10-60) IU/L Alkaline Phosphatase (42-121) IU/L Troponin I (0.00-0.02) ng/ml B-Natriuretic Peptide (0-100) pg/ml Total Protein (6.7-8.2) g/dl Albumin (3.2-5.5) g/dl Globulin Albumin/Globulin Ratio Meds: Medications Discontinued Medications Generic Name Dose Route Start Last Admin Trade Name Freq PRN Reason Stop Dose Admin Albuterol 2.5 mg 06/13/17 01:09 06/13/17 01:14 Proventil Neb Soln NEB 06/13/17 01:10 2.5 mg ONETIME ONE Administration Bumetanide 1 mg 06/13/17 01:21 06/13/17 01:28 Bumex IVPUSH 06/13/17 01:22 1 mg ONETIME ONE Administration Insulin Human Regular 5 unit 06/13/17 01:51 06/13/17 02:08 Humulin R IV 06/13/17 01:52 5 units ONETIME ONE Administration Lorazepam 0.5 mg 06/13/17 01:02 06/13/17 01:13 Ativan IVPUSH 06/13/17 01:03 0.5 mg ONETIME ONE Administration Metoprolol Tartrate 2.5 mg 06/13/17 01:36 06/13/17 01:45 Lopressor IVPUSH 06/13/17 01:37 2.5 mg ONETIME ONE Administration - Radiology Interpretation Free Text/Narrative:: CXR: mild to moderate interstitial pulmonary edemea, small bilateral pleural effusions - Re-Assessments/Exams Free Text/Narrative Re-Assessment/Exam: 06/13/17 02:42 Resting, decreased respiratory effort with Ativan and Bumex. Sats maintained greater than 96%. HR 90's. BP improved with lopressor 2.5mg. TC consult Ava Pleitez accepting of patient for further eval and management. 06/13/17 02:43 Departure - Departure Time of Disposition: 03:05 Disposition: DC/Tfer to Acute Hospital 02 Condition: Serious Clinical Impression: Respiratory distress, End stage renal disease on dialysis, Hypoxemia, Diabetes mellitus type 2, insulin dependent, Hyperglycemia, Noncompliance of patient with renal dialysis Pulmonary edema Qualifiers: Chronicity: acute Qualified Code(s): J81.0 - Acute pulmonary edema - Discharge Information Forms: ED Department Discharge - My Orders Last 24 Hours: My Active Orders 06/13/17 01:00 Chest 1V Frontal [CR] Urgent 06/13/17 01:02 EKG Documentation Completion [RC] URGENT 06/13/17 01:10 RT Aerosol Therapy [RC] ASDIRECTED CULTURE BLOOD [BC] Stat DD [D-DIMER QUANTITATIVE] [COAG] Stat 06/13/17 02:21 Glucose [Blood Glucose Check, Bedside] [RC] ONETIME - Assessment/Plan Last 24 Hours: My Active Orders 06/13/17 01:00 Chest 1V Frontal [CR] Urgent 06/13/17 01:02 EKG Documentation Completion [RC] URGENT 06/13/17 01:10 RT Aerosol Therapy [RC] ASDIRECTED CULTURE BLOOD [BC] Stat DD [D-DIMER QUANTITATIVE] [COAG] Stat 06/13/17 02:21 Glucose [Blood Glucose Check, Bedside] [RC] ONETIME
[2017-06-13] MEDS ORDERED: Insulin Regular, Human 100 Units/ML 3 ML Vial IV ONE (01:51)
[2017-06-13 01:56] LABS: BICARBONATE,ARTERIAL 14.5 mmol/L (22-26); PCO2 ARTERIAL 36 mmHg (35-45); PO2 ARTERIAL 78 mmHg (70-100)
[2017-06-13 02:00] LABS: O2 DELIVERY DEVICE NON REBR MASK
[2017-06-13 02:06] VITALS: BP 187/90
[2017-06-13 02:07] LABS: O2 SATURATION ARTERIAL 94 % (95-100)
[2017-06-13 02:08] LABS: ALLEN TEST RB; BASE EXCESS ARTERIAL -13 mmol/L ((-2)-(+3)); O2 FLOW RATE 10
--- NOTE | 2017-06-13 13:36 | EKG ---
06/13/2017- ROSEMARY TALAMANTES - FINDINGS: EKG, per my reading, shows sinus tachycardia at the rate of 123 with a left bundle-branch block. [facility] /[id number]
== END 2017-06-13 03:17 ==
LOC: DL.ED 00:56
DX: J81.0 Acute pulmonary edema (principal); R09.02 Hypoxemia; I12.0 Hypertensive chronic kidney disease with stage 5 chronic kidney disease or end stage renal disease; E11.22 Type 2 diabetes mellitus with diabetic chronic kidney disease; N18.6 End stage renal disease; E11.65 Type 2 diabetes mellitus with hyperglycemia; E78.00 Pure hypercholesterolemia, unspecified; I25.2 Old myocardial infarction; Z79.4 Long term (current) use of insulin; Z79.899 Other long term (current) drug therapy; Z79.82 Long term (current) use of aspirin; Z87.891 Personal history of nicotine dependence
CPT/HCPCS: 36415; 36600; 71045; 80053; 82803; 82962; 83605; 83880; 84484; 85025; 85379; 87040; 93005; 94640; 96374; 96375; 99285; J1815; J2060; J7620; J3490; S0171

== ENCOUNTER 2017-07-06 12:35 | Emergency (ER) | payer MEDICAID ==
--- NOTE | 2017-07-06 14:19 | EDM.PDOC ---
ED HPI GENERAL MEDICAL PROBLEM - General Chief Complaint: General Stated Complaint: SENT BY [facility] NO PHONE Time Seen by Provider: 07/06/17 14:05 Source of Information: Reports: Patient History Limitations: Reports: No Limitations - History of Present Illness INITIAL COMMENTS - FREE TEXT/NARRATIVE: This 62 yo female patient was brought to the ED due to missing her dialysis appointments for the past 2 weeks. The patient reports that she missed her appointments due to having the flu. The patient reports that she started to feel better 2 days ago. The patient reports that her ride did not show up yesterday to take her to dialysis. The patient reports that she does want treatment and would like to continue with dialysis. The patient reports she currently has no pain or complaints. Onset: Other Duration: Week(s):, Constant Location: Reports: Other Severity: Mild Improves with: Reports: None Worsens with: Reports: None Context: Reports: Other Associated Symptoms: Reports: No Other Symptoms - Related Data Allergies Allergy/AdvReac Type Severity Reaction Status Date / Time capsaicin Allergy UNKNOWN Verified 07/06/17 13:33 codeine Allergy Nausea and Verified 07/06/17 13:33 Vomiting ibuprofen Allergy Itching Verified 07/06/17 13:33 pregabalin Allergy CONTACT Verified 07/06/17 13:33 DERMATITIS ALLERGY Home Meds: Home Meds Carvedilol 12.5 mg PO BID 07/19/16 [History] Insulin Detemir [Levemir] 5 unit SUBCUT BEDTIME 07/19/16 [History] Mometasone/Formoterol [Dulera 100-5 MCG] 2 puff IN DAILY 07/19/16 [History] Simvastatin [Zocor] 10 mg PO BEDTIME 07/19/16 [History] Ticagrelor [Brilinta] 90 mg PO BID 07/19/16 [History] Tiotropium [Spiriva HandiHaler] 18 mcg IN DAILY 07/19/16 [History] Bumetanide [Bumex] 1 mg PO .QPM tablet 08/03/16 [Rx] Bumetanide [Bumex] 2 mg PO DAILY tablet 08/03/16 [Rx] Acetaminophen [Pain Reliever] 500 mg PO Q8H PRN 04/06/17 [History] Albuterol [Proventil Neb Soln] 0.63 mg NEB Q4HRRT 04/06/17 [History] Aspirin 325 mg PO DAILY 04/06/17 [History] Iron Polysaccharide Complex [Ferric X-150] 150 mg PO DAILY 04/06/17 [History] Ranitidine [Zantac] 150 mg PO DAILY 04/06/17 [History] Sertraline HCl 50 mg PO BEDTIME 04/06/17 [History] Past Medical History HEENT History: Reports: Glaucoma, Impaired Vision Other HEENT History: 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 Cardiovascular History: Reports: High Cholesterol, Hypertension, IN, Stents Respiratory History: Reports: Asthma, COPD, SOB Gastrointestinal History: Reports: Gastritis, GERD, Hemorrhoids Genitourinary History: Reports: Chronic Renal Insuffiency, Dialysis GIFTS OFFICER History: Reports: 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, Other (See Below) Other OB/BYN History: hysterectomy Musculoskeletal History: Reports: Arthritis, Back Pain, Chronic, Fibromyalgia Neurological History: Reports: Migraines Other Neuro History: hx of migraines; states she doesn't get them anymore Psychiatric History: Reports: Bipolar Endocrine/Metabolic History: Reports: Diabetes, Type II Hematologic History: Reports: None Immunologic History: Reports: None Oncologic (Cancer) History: Reports: None Dermatologic History: Reports: Cellulitis, Other (See Below) Other Dermatologic History: poor circulation in legs - Infectious Disease History Infectious Disease History: Reports: None - Past Surgical History Head Surgeries/Procedures: Reports: None HEENT Surgical History: Reports: Cataract Surgery, Eye Surgery, Laser Surgery Neurological Surgical History: Reports: None Musculoskeletal Surgical History: Reports: Other (See Below) Other Musculoskeletal Surgeries/Procedures:: Hip Fracture Social & Family History - Family History Family Medical History: Noncontributory HEENT: Reports: None Cardiac: Reports: None Respiratory: Reports: None GI: Reports: None OBGYN: Reports: None Musculoskeletal: Reports: Fibromyalgia Other Musculoskeletal Family History: cousin Neurological: Reports: None Psychiatric: Reports: None Oncologic: Reports: Breast Other Oncologic Family History: Aunt had breast cancer - Tobacco Use Smoking Status *Q: Current Every Day Smoker Years of Tobacco use: 42 Packs/Tins Daily: 1 - Caffeine Use Caffeine Use: Reports: Coffee Caffeine Use Comment: 4 cups in morning and 1 in the evening - Recreational Drug Use Recreational Drug Use: No - Living Situation & Occupation Living situation: Reports: Other (homeless) Occupation: Unemployed ED ROS GENERAL - Review of Systems Review Of Systems: ROS reveals no pertinent complaints other than HPI. ED EXAM, GENERAL - Physical Exam Exam: See Below Exam Limited By: No Limitations General Appearance: Alert, WD/WN, No Apparent Distress Eye Exam: Right Eye: EOMI, Normal Inspection, PERRL, Left Eye: Other (patient can not see) Ears: Normal External Exam, Normal Canal, Hearing Grossly Normal, Normal TMs Nose: Normal Inspection, Normal Mucosa, No Blood Throat/Mouth: Normal Inspection, Normal Lips, Normal Teeth, Normal Gums, Normal Oropharynx, Normal Voice, No Airway Compromise Head: Atraumatic, Normocephalic Neck: Normal Inspection, Supple, Non-Tender, Full Range of Motion Respiratory/Chest: No Respiratory Distress, Lungs Clear, Normal Breath Sounds, No Accessory Muscle Use, Chest Non-Tender Cardiovascular: Normal Peripheral Pulses, Regular Rate, Rhythm, No Edema, No Gallop, No JVD, No Murmur, No Rub GI/Abdominal: Normal Bowel Sounds, Soft, Non-Tender, No Organomegaly, No Distention, No Abnormal Bruit, No Mass (Female) Exam: Deferred Rectal (Female) Exam: Deferred Back Exam: Normal Inspection, Full Range of Motion, NT Extremities: Normal Inspection, Normal Range of Motion, Non-Tender, Normal Capillary Refill, No Pedal Edema Neurological: Alert, Oriented, CN II-XII Intact, Normal Cognition, Normal Gait, Normal Reflexes, No Motor/Sensory Deficits Psychiatric: Normal Affect, Normal Mood Skin Exam: Warm, Dry, Intact, Normal Color, No Rash Lymphatic: No Adenopathy Course - Vital Signs Last Recorded V/S: Last Vital Signs Temp 36.6 C 07/06/17 13:45 Pulse 91 07/06/17 13:45 Resp 12 07/06/17 13:45 BP 196/95 H 07/06/17 13:45 Pulse Ox 96 07/06/17 13:45 - Orders/Labs/Meds Orders: Active Orders 24 hr Category Date Time Status Blood Glucose Check, Bedside [RC] ONETIME Care 07/06/17 14:33 Active DRUG SCREEN URINE BIORAD [URCHEM] Stat Lab 07/06/17 14:08 Ordered UA W/MICROSCOPIC [URIN] Stat Lab 07/06/17 14:08 Ordered Labs: Laboratory Tests 07/06/17 07/06/17 07/06/17 Range/Units 13:41 14:15 14:15 WBC 11.0 H (5.0-10.0) 10^3/uL RBC 3.68 L (4.2-5.4) 10^6/uL Hgb 11.5 L (12.0-16.0) g/dL Hct 35.2 L (37.0-47.0) % MCV 95.7 (80-100) fL MCH 31.3 (27.0-34.0) pg MCHC 32.7 L (33.0-35.0) g/dL Plt Count 282 D (150-450) 10^3/uL Neut % (Auto) 81.9 H (42.2-75.2) % Lymph % (Auto) 11.2 L (20.5-50.1) % [place] % (Auto) 4.0 (2-8) % Eos % (Auto) 2.0 (1.0-3.0) % Baso % (Auto) 0.9 (0.0-1.0) % Sodium (135-145) mmol/L Potassium (3.6-5.0) mmol/L Chloride (101-111) mmol/L Carbon Dioxide (21.0-31.0) mmol/L Anion Gap BUN (7-18) mg/dL Creatinine (0.6-1.3) mg/dL Est Cr Clr Drug Dosing mL/min Estimated GFR (MDRD) BUN/Creatinine Ratio Glucose (74-105) mg/dL POC Glucose 140 H (70-105) mg/dl Calcium (8.4-10.2) mg/dl Total Bilirubin (0.2-1.0) mg/dL AST (10-42) IU/L ALT (10-60) IU/L Alkaline Phosphatase (42-121) IU/L B-Natriuretic Peptide 2070 H (0-100) pg/ml Total Protein (6.7-8.2) g/dl Albumin (3.2-5.5) g/dl Globulin Albumin/Globulin Ratio 07/06/17 Range/Units 14:15 WBC (5.0-10.0) 10^3/uL RBC (4.2-5.4) 10^6/uL Hgb (12.0-16.0) g/dL Hct (37.0-47.0) % MCV (80-100) fL MCH (27.0-34.0) pg MCHC (33.0-35.0) g/dL Plt Count (150-450) 10^3/uL Neut % (Auto) (42.2-75.2) % Lymph % (Auto) (20.5-50.1) % [place] % (Auto) (2-8) % Eos % (Auto) (1.0-3.0) % Baso % (Auto) (0.0-1.0) % Sodium 137 (135-145) mmol/L Potassium 6.2 H (3.6-5.0) mmol/L Chloride 114 H (101-111) mmol/L Carbon Dioxide 15.0 L (21.0-31.0) mmol/L Anion Gap 14.2 BUN 93 H (7-18) mg/dL Creatinine 4.4 H (0.6-1.3) mg/dL Est Cr Clr Drug Dosing 9.77 mL/min Estimated GFR (MDRD) 10 BUN/Creatinine Ratio 21.13 Glucose 112 H (74-105) mg/dL POC Glucose (70-105) mg/dl Calcium 8.2 L (8.4-10.2) mg/dl Total Bilirubin 0.3 (0.2-1.0) mg/dL AST 13 (10-42) IU/L ALT 10 (10-60) IU/L Alkaline Phosphatase 75 (42-121) IU/L B-Natriuretic Peptide (0-100) pg/ml Total Protein 6.7 (6.7-8.2) g/dl Albumin 2.7 L (3.2-5.5) g/dl Globulin 4.0 Albumin/Globulin Ratio 0.68 Meds: Medications Discontinued Medications Generic Name Dose Route Start Last Admin Trade Name Freq PRN Reason Stop Dose Admin Calcium Chloride 1 gm 07/06/17 15:04 Calcium Chloride 10% IVPUSH 07/06/17 15:05 ONETIME ONE Furosemide 100 mg 07/06/17 14:57 Lasix IVPUSH 07/06/17 14:58 NOW ONE Sodium Polystyrene Sulfonate 30 gm 07/06/17 14:57 Kayexalate PO 07/06/17 14:58 ONETIME ONE Departure - Departure Time of Disposition: 15:11 Disposition: DC/Tfer to [facility] 02 Condition: Poor Clinical Impression: Hyperkalemia, End stage renal disease on dialysis - Discharge Information Forms: Interfacility Transfer EMTALA Care Plan Goals: Discussed the patient's history and lab results with Dr. Guzman (Hospitalist with [facility] in [place]). Dr. Guzman accepted the patient for continued evaluation and further management. The patient will be transported by [facility]. - My Orders Last 24 Hours: My Active Orders 07/06/17 14:08 DRUG SCREEN URINE BIORAD [URCHEM] Stat UA W/MICROSCOPIC [URIN] Stat 07/06/17 14:33 Blood Glucose Check, Bedside [RC] ONETIME - Assessment/Plan Last 24 Hours: My Active Orders 07/06/17 14:08 DRUG SCREEN URINE BIORAD [URCHEM] Stat UA W/MICROSCOPIC [URIN] Stat 07/06/17 14:33 Blood Glucose Check, Bedside [RC] ONETIME
[2017-07-06] MEDS ORDERED: Sodium Polystyrene Sulfonate 15 GM/60 ML Susp 60 ML Bot PO ONE (14:57)
[2017-07-06] MEDS ORDERED: Furosemide 100 MG/10 ML SDV IVPUSH ONE (14:57)
[2017-07-06] MEDS ORDERED: Calcium Chloride 10% 1 GM/10 ML Syringe IVPUSH ONE (15:04)
[2017-07-06] MEDS ORDERED: Metoprolol Tartrate 5 MG/5 ML SDV IVPUSH ONE (15:43)
[2017-07-06 16:05] VITALS: BP 228/99
== END 2017-07-06 16:05 ==
LOC: DL.ED 12:35
DX: I12.0 Hypertensive chronic kidney disease with stage 5 chronic kidney disease or end stage renal disease (principal); E11.22 Type 2 diabetes mellitus with diabetic chronic kidney disease; N18.6 End stage renal disease; E87.6 Hypokalemia; J44.9 Chronic obstructive pulmonary disease, unspecified; Z99.2 Dependence on renal dialysis; Z79.4 Long term (current) use of insulin; Z79.899 Other long term (current) drug therapy; Z79.82 Long term (current) use of aspirin; Z88.8 Allergy status to other drugs, medicaments and biological substances; Z88.5 Allergy status to narcotic agent; Z88.6 Allergy status to analgesic agent
CPT/HCPCS: 36415; 80053; 82962; 83880; 85025; 96374; 96375; 99285; A9270; J1940; J3490

== ENCOUNTER 2017-10-31 11:06 | Emergency (ER) | payer MEDICAID ==
--- NOTE | 2017-10-31 11:06 | EDM.PDOC ---
ED HPI GENERAL MEDICAL PROBLEM - General Chief Complaint: Chest Pain Stated Complaint: CHEST PAIN . IN BY SL AMB Time Seen by Provider: 10/31/17 11:06 Source of Information: Reports: Patient, EMS, Old Records, RN, RN Notes Reviewed History Limitations: Reports: No Limitations - History of Present Illness INITIAL COMMENTS - FREE TEXT/NARRATIVE: Pt arrives from home by [facility] with c/o recurrent chest pain associated with shortness of breath. Pt states that she has been having chest pain on and off x1 week, but was worse last night and today. Pt has a Rt upper chest CV port for dialysis, but states that she has just laid at home and has not gone to dialysis or to the doctor for 2 months. Pt received Aspirin 325mg and Nitroglycerin 0.4mg SL x4 doses by paramedics prior to arrival to the ER. Pt reports relief of her chest pain with the NTG, but now in the ER the chest pain is returning. Duration: Recurring, Waxing/Waning Location: Reports: Chest Chest Pain Score (Numeric/FACES): 8 - Related Data Allergies Allergy/AdvReac Type Severity Reaction Status Date / Time capsaicin Allergy UNKNOWN Verified 07/06/17 13:33 codeine Allergy Nausea and Verified 07/06/17 13:33 Vomiting ibuprofen Allergy Itching Verified 07/06/17 13:33 pregabalin Allergy CONTACT Verified 07/06/17 13:33 DERMATITIS ALLERGY Home Meds: Home Meds Carvedilol 12.5 mg PO BID 07/19/16 [History] Insulin Detemir [Levemir] 5 unit SUBCUT BEDTIME 07/19/16 [History] Mometasone/Formoterol [Dulera 100-5 MCG] 2 puff IN DAILY 07/19/16 [History] Simvastatin [Zocor] 10 mg PO BEDTIME 07/19/16 [History] Ticagrelor [Brilinta] 90 mg PO BID 07/19/16 [History] Tiotropium [Spiriva HandiHaler] 18 mcg IN DAILY 07/19/16 [History] Bumetanide [Bumex] 1 mg PO .QPM tablet 08/03/16 [Rx] Bumetanide [Bumex] 2 mg PO DAILY tablet 08/03/16 [Rx] Acetaminophen [Pain Reliever] 500 mg PO Q8H PRN 04/06/17 [History] Albuterol [Proventil Neb Soln] 0.63 mg NEB Q4HRRT 04/06/17 [History] Aspirin 325 mg PO DAILY 04/06/17 [History] Iron Polysaccharide Complex [Ferric X-150] 150 mg PO DAILY 04/06/17 [History] Ranitidine [Zantac] 150 mg PO DAILY 04/06/17 [History] Sertraline HCl 50 mg PO BEDTIME 04/06/17 [History] Past Medical History HEENT History: Reports: Glaucoma, Impaired Vision Other HEENT History: 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 Cardiovascular History: Reports: High Cholesterol, Hypertension, NH, Stents Respiratory History: Reports: Asthma, COPD, SOB Gastrointestinal History: Reports: Gastritis, GERD, Hemorrhoids Genitourinary History: Reports: Chronic Renal Insuffiency, Dialysis [employer] [address] [employer] History: Reports: 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, Other (See Below) Other [employer] [address] [employer] History: hysterectomy Musculoskeletal History: Reports: Arthritis, Back Pain, Chronic, Fibromyalgia Neurological History: Reports: Migraines Other Neuro History: hx of migraines; states she doesn't get them anymore Psychiatric History: Reports: Bipolar Endocrine/Metabolic History: Reports: Diabetes, Type II Hematologic History: Reports: None Immunologic History: Reports: None Oncologic (Cancer) History: Reports: None Dermatologic History: Reports: Cellulitis, Other (See Below) Other Dermatologic History: poor circulation in legs - Infectious Disease History Infectious Disease History: Reports: None - Past Surgical History Head Surgeries/Procedures: Reports: None HEENT Surgical History: Reports: Cataract Surgery, Eye Surgery, Laser Surgery Neurological Surgical History: Reports: None Musculoskeletal Surgical History: Reports: Other (See Below) Other Musculoskeletal Surgeries/Procedures:: Hip Fracture - History Comment History Comment: Voluntary medical noncompliance Social & Family History - Family History Family Medical History: Noncontributory HEENT: Reports: None Cardiac: Reports: None Respiratory: Reports: None GI: Reports: None OBGYN: Reports: None Musculoskeletal: Reports: Fibromyalgia Other Musculoskeletal Family History: cousin Neurological: Reports: None Psychiatric: Reports: None Oncologic: Reports: Breast Other Oncologic Family History: Aunt had breast cancer - Tobacco Use Smoking Status *Q: Current Every Day Smoker Tobacco Use Within Last Twelve Months: Cigarettes - Caffeine Use Caffeine Use: Reports: Coffee Caffeine Use Comment: 4 cups in morning and 1 in the evening - Alcohol Use Alcohol Use History: No - Recreational Drug Use Recreational Drug Type: Reports: Marijuana/Hashish Recreational Drug Use Frequency: Patient Refuses To Answer - Living Situation & Occupation Living situation: Reports: Other (homeless) Occupation: Unemployed ED ROS GENERAL - Review of Systems Review Of Systems: ROS reveals no pertinent complaints other than HPI. ED EXAM, GENERAL - Physical Exam Exam: See Below Exam Limited By: No Limitations General Appearance: Alert, No Apparent Distress, Other (chronically ill, frail, very unkept with severe self neglect and poor hygiene) Eye Exam: Right Eye: Conjunctival Injection (with mild lid erythema and crusting of yellowish discharge), Bilateral Eye: Other (legally blind) Ears: Hearing Grossly Normal Nose: Normal Inspection Throat/Mouth: Normal Voice, No Airway Compromise Head: Atraumatic, Normocephalic Neck: Normal Inspection, Supple, Non-Tender, Full Range of Motion Respiratory/Chest: No Respiratory Distress, Lungs Clear, No Accessory Muscle Use , Chest Non-Tender, Decreased Breath Sounds, Other (Rt upper chest wall with dialysis port with soiled dressing and localized erythema, no purulent drainage) Cardiovascular: Regular Rate, Rhythm, No Edema, Tachycardia GI/Abdominal: Normal Bowel Sounds, Soft, Non-Tender, No Distention (Female) Exam: Deferred Rectal (Female) Exam: Deferred Extremities: Normal Range of Motion, Non-Tender, No Pedal Edema Neurological: Alert, Oriented, No Motor/Sensory Deficits Psychiatric: Depressed Mood, Flat Affect Skin Exam: Warm, Dry, Other (multiple patches of skin erythema and crusting at inferior left breast, Rt hannah-ocular skin, upper lip, middle upper back, left shoulder, and skin around Rt chest dialysis port) EKG INTERPRETATION EKG Date: 10/31/17 Time: 11:10 Rhythm: Other (SR) Rate (Beats/Min): 102 [place]: Normal P-Wave: Present QRS: Other (probable LVH) ST-T: Depressed (ant. and lateral leads) QT: Prolonged (borderline) Comparison: Change From Previous EKG EKG Interpretation Comments: Acute ant/lateral ischemia likely. Course - Vital Signs Last Recorded V/S: Last Vital Signs Temp 36.7 C 10/31/17 11:09 Pulse 101 H 10/31/17 11:09 Resp 15 10/31/17 11:09 BP 161/83 H 10/31/17 11:09 Pulse Ox 100 10/31/17 11:09 - Orders/Labs/Meds Orders: Active Orders 24 hr Category Date Time Status EKG 12 Lead [EKG Documentation Completion] [] STAT Care 10/31/17 11:07 Active Peripheral IV Care [] . DIRECTED Care 10/31/17 11:08 Active Peripheral IV Care [] . DIRECTED Care 10/31/17 11:43 Active CULTURE BLOOD [] Stat Lab 10/31/17 11:22 Received CULTURE BLOOD [BC] Stat Lab 10/31/17 11:28 Received Heparin Sodium/0.45% NaCl [Heparin 25,000 Units in 1/2 Med 10/31/17 12:00 Active NS 500 ML] 25,000 units in 500 ml IV TITRATE Nitroglycerin/D5W [Nitroglycerin 25 MG/D5W 250 ML] Med 10/31/17 11:45 Active 25 mg in 250 ml IV TITRATE Sodium Chloride 0.9% [Saline Flush] Med 10/31/17 11:07 Active 10 ml FLUSH ASDIRECTED PRN Sodium Chloride 0.9% [Saline Flush] Med 10/31/17 11:43 Active 10 ml FLUSH ASDIRECTED PRN Blood Culture x2 Reflex Set [OM.PC] Stat Oth 10/31/17 11:07 Ordered Peripheral IV Insertion Adult [OM.PC] Stat Oth 10/31/17 11:07 Ordered Peripheral IV Insertion Adult [OM.PC] Stat Ot 10/31/17 11:43 Ordered Medication Orders Nitroglycerin/Dextrose (Nitroglycerin 25 Mg/D5w 250 Ml) 25 mg in 250 mls @ 3 mls/hr IV TITRATE ELFEGO; Protocol Last Admin: 10/31/17 11:52 Dose: 5 mcg/min, 3 mls/hr Heparin Sodium/Sodium Chloride (Heparin 25,000 Units In 1/2 Ns 500 Ml) 25,000 units in 500 mls @ 15.241 mls/hr IV TITRATE ELFEGO; Protocol Last Admin: 10/31/17 12:04 Dose: 12 units/kg/hr, 15.241 mls/hr Sodium Chloride (Saline Flush) 10 ml FLUSH ASDIRECTED PRN PRN Reason: Keep Vein Open Last Admin: 10/31/17 11:24 Dose: 10 ml Sodium Chloride (Saline Flush) 10 ml FLUSH ASDIRECTED PRN PRN Reason: Keep Vein Open Last Admin: 10/31/17 12:09 Dose: 10 ml Labs: Laboratory Tests 10/31/17 10/31/17 10/31/17 Range/Units 11:22 11:22 11:22 WBC 16.3 H (5.0-10.0) 10^3/uL RBC 3.01 L (4.2-5.4) 10^6/uL Hgb 9.3 L D (12.0-16.0) g/dL Hct 28.7 L (37.0-47.0) % MCV 95.3 (80-100) fL MCH 30.9 (27.0-34.0) pg MCHC 32.4 L (33.0-35.0) g/dL Plt Count 450 D (150-450) 10^3/uL Neut % (Auto) 88.3 H (42.2-75.2) % Lymph % (Auto) 6.5 L (20.5-50.1) % [place] % (Auto) 3.5 (2-8) % Eos % (Auto) 1.0 (1.0-3.0) % Baso % (Auto) 0.7 (0.0-1.0) % PT 9.5 (9.0-12.0) SEC INR 1.0 (0.9-1.2) APTT 26.7 (22.0-34.0) SEC Sodium 135 (135-145) mmol/L Potassium 4.1 D (3.6-5.0) mmol/L Chloride 113 H (101-111) mmol/L Carbon Dioxide 11.0 L (21.0-31.0) mmol/L Anion Gap 15.1 BUN 85 H (7-18) mg/dL Creatinine 5.2 H (0.6-1.3) mg/dL Est Cr Clr Drug Dosing 9.52 mL/min Estimated GFR (MDRD) 8 BUN/Creatinine Ratio 16.34 Glucose 119 H (74-105) mg/dL Lactic Acid (0.5-2.2) mmol/L Calcium 7.3 L (8.4-10.2) mg/dl Total Bilirubin 0.4 (0.2-1.0) mg/dL AST 13 (10-42) IU/L ALT 10 (10-60) IU/L Alkaline Phosphatase 77 (42-121) IU/L Troponin I 0.59 H* (0.00-0.02) ng/ml B-Natriuretic Peptide 3280 H (0-100) pg/ml Total Protein 6.2 L (6.7-8.2) g/dl Albumin 2.4 L (3.2-5.5) g/dl Globulin 3.8 Albumin/Globulin Ratio 0.63 Lipase 28 (22-51) U/L Urine Color (YELLOW) Urine Appearance (CLEAR) Urine pH (5.0-9.0) Ur Specific [place] (1.005-1.030) Urine Protein (NEGATIVE) Urine Glucose (UA) (NEGATIVE) Urine Ketones (NEGATIVE) Urine Occult Blood (NEGATIVE) Urine Nitrite (NEGATIVE) Urine Bilirubin (NEGATIVE) Urine Urobilinogen (0.2-1.0) mg/dL Ur Leukocyte Esterase (NEGATIVE) Urine RBC /HPF Urine WBC (0-5/HPF) /HPF Ur Epithelial Cells /HPF Amorphous Sediment (0/HPF) /HPF Urine Bacteria (0-FEW/HPF) /HPF Urine Mucus /LPF Urine Opiates Screen (NEGATIVE) Ur Oxycodone Screen (NEGATIVE) Urine Methadone Screen (NEGATIVE) Ur Barbiturates Screen (NEGATIVE) U Tricyclic Antidepress (NEGATIVE) Ur Phencyclidine Scrn (NEGATIVE) Ur Amphetamine Screen (NEGATIVE) U Methamphetamines Scrn (NEGATIVE) Urine MDMA Screen (NEGATIVE) U Benzodiazepines Scrn (NEGATIVE) Urine Cocaine Screen (NEGATIVE) U Marijuana (THC) Screen (NEGATIVE) Ethyl Alcohol < 5 mg/dL 10/31/17 10/31/17 10/31/17 Range/Units 11:22 11:46 11:46 WBC (5.0-10.0) 10^3/uL RBC (4.2-5.4) 10^6/uL Hgb (12.0-16.0) g/dL Hct (37.0-47.0) % MCV (80-100) fL MCH (27.0-34.0) pg MCHC (33.0-35.0) g/dL Plt Count (150-450) 10^3/uL Neut % (Auto) (42.2-75.2) % Lymph % (Auto) (20.5-50.1) % [place] % (Auto) (2-8) % Eos % (Auto) (1.0-3.0) % Baso % (Auto) (0.0-1.0) % PT (9.0-12.0) SEC INR (0.9-1.2) APTT (22.0-34.0) SEC Sodium (135-145) mmol/L Potassium (3.6-5.0) mmol/L Chloride (101-111) mmol/L Carbon Dioxide (21.0-31.0) mmol/L Anion Gap BUN (7-18) mg/dL Creatinine (0.6-1.3) mg/dL Est Cr Clr Drug Dosing mL/min Estimated GFR (MDRD) BUN/Creatinine Ratio Glucose (74-105) mg/dL Lactic Acid 0.5 (0.5-2.2) mmol/L Calcium (8.4-10.2) mg/dl Total Bilirubin (0.2-1.0) mg/dL AST (10-42) IU/L ALT (10-60) IU/L Alkaline Phosphatase (42-121) IU/L Troponin I (0.00-0.02) ng/ml B-Natriuretic Peptide (0-100) pg/ml Total Protein (6.7-8.2) g/dl Albumin (3.2-5.5) g/dl Globulin Albumin/Globulin Ratio Lipase (22-51) U/L Urine Color Yellow (YELLOW) Urine Appearance Clear (CLEAR) Urine pH 6.0 (5.0-9.0) Ur Specific [place] 1.020 (1.005-1.030) Urine Protein >=300 H (NEGATIVE) Urine Glucose (UA) 100 H (NEGATIVE) Urine Ketones Negative (NEGATIVE) Urine Occult Blood Small H (NEGATIVE) Urine Nitrite Negative (NEGATIVE) Urine Bilirubin Negative (NEGATIVE) Urine Urobilinogen 0.2 (0.2-1.0) mg/dL Ur Leukocyte Esterase Negative (NEGATIVE) Urine RBC 0-5 /HPF Urine WBC Not seen (0-5/HPF) /HPF Ur Epithelial Cells Moderate H /HPF Amorphous Sediment Few (0/HPF) /HPF Urine Bacteria Rare (0-FEW/HPF) /HPF Urine Mucus Few H /LPF Urine Opiates Screen Negative (NEGATIVE) Ur Oxycodone Screen Negative (NEGATIVE) Urine Methadone Screen Negative (NEGATIVE) Ur Barbiturates Screen Negative (NEGATIVE) U Tricyclic Antidepress Negative (NEGATIVE) Ur Phencyclidine Scrn Negative (NEGATIVE) Ur Amphetamine Screen Negative (NEGATIVE) U Methamphetamines Scrn Negative (NEGATIVE) Urine MDMA Screen Negative (NEGATIVE) U Benzodiazepines Scrn Negative (NEGATIVE) Urine Cocaine Screen Negative (NEGATIVE) U Marijuana (THC) Screen Positive H (NEGATIVE) Ethyl Alcohol mg/dL Meds: Medications Generic Name Dose Route Start Last Admin Trade Name Freq PRN Reason Stop Dose Admin Nitroglycerin/Dextrose 25 mg in 250 mls @ 3 mls/hr 10/31/17 11:45 10/31/17 11 :52 Nitroglycerin 25 Mg/D5w 250 Ml IV 5 mcg/min TITRATE ELFEGO 3 mls/hr Administration Protocol 5 MCG/MIN Heparin Sodium/Sodium Chloride 25,000 units in 500 mls @ 15.241 mls/hr 12:00 10/31/17 12:04 Heparin 25,000 Units In 1/2 Ns 500 Ml IV 12 units/kg/hr TITRATE ELFEGO 15.241 mls/hr Administration Protocol 12 UNITS/KG/HR Sodium Chloride 10 ml 10/31/17 11:07 10/31/17 11:24 Saline Flush FLUSH 10 ml ASDIRECTED PRN Administration Keep Vein Open Sodium Chloride 10 ml 10/31/17 11:43 10/31/17 12:09 Saline Flush FLUSH 10 ml ASDIRECTED PRN Administration Keep Vein Open Discontinued Medications Generic Name Dose Route Start Last Admin Trade Name Freq PRN Reason Stop Dose Admin Heparin Sodium (Porcine) 3,800 units 10/31/17 11:50 10/31/17 12:04 Heparin Sodium IVPUSH 10/31/17 11:51 3,800 units .BOLUS ONE Administration - Radiology Interpretation Free Text/Narrative:: [facility] [place] - [facility] Final Radiology Report Call: [phone] assistance Online chat: [email or web address] Name: ROSEMARY TALAMANTES Age: 62Years F Date: 10/31/2017 SSN: -- : 1955 Study: XR CHEST 1 VIEW Requesting Physician: SHAYLA SARAH Images: 1 Addl Studies: Provided Clinical History: Contrast: Contrast Medium: Contrast Amount: Contrast Method: CONFIDENTIALITY STATEMENT This report is intended only for use by the referring physician, and only in accordance with law. If you received this in error, call [phone]. Page 1 of 1 EXAM: XR Chest, 1 View CLINICAL HISTORY: 62 years old, female; Signs and symptoms; Other: Chest pain TECHNIQUE: Frontal view of the chest. COMPARISON: No relevant prior studies available. FINDINGS: Lungs: Mass versus infiltrate at the right medial base. Pleural space: Unremarkable. No pneumothorax. Heart: Unremarkable. No cardiomegaly. Mediastinum: Unremarkable. Bones/joints: Unremarkable. Tubes, lines and devices: Right central line ends in the cavoatrial junction. IMPRESSION: Mass versus infiltrate at the right medial base. Consider CT for further evaluation. Right central line ends in the cavoatrial junction. Thank you for allowing us to participate in the care of your patient. Dictated and Authenticated by: Berta Chakraborty MD 10/31/2017 12:04 PM Central Time ([place] & [place]) Departure - Departure Time of Disposition: 12:37 Disposition: DC/Tfer to [facility] 02 Reason for Transfer *Q: Primary PCI Indicated Condition: Critical Clinical Impression: Non-ST elevated myocardial infarction (non-STEMI), Medical non-compliance, Legally blind, Tobacco use disorder, Noncompliance of patient with renal dialysis Chronic kidney disease Qualifiers: Chronic kidney disease stage: on chronic dialysis Qualified Code(s): N18.6 - End stage renal disease; Z99.2 - Dependence on renal dialysis Infected venous access port Qualifiers: Encounter type: initial encounter Qualified Code(s): T80.219A - Unspecified infection due to central venous catheter, initial encounter COPD (chronic obstructive pulmonary disease) Qualifiers: COPD type: unspecified COPD Qualified Code(s): J44.9 - Chronic obstructive pulmonary disease, unspecified Congestive heart failure Qualifiers: Heart failure type: unspecified Heart failure chronicity: acute on chronic Qualified Code(s): I50.9 - Heart failure, unspecified Forms: ED Department Discharge, Interfacility Transfer EMTALA - My Orders Last 24 Hours: My Active Orders 10/31/17 11:07 EKG 12 Lead [EKG Documentation Completion] [RC] STAT Sodium Chloride 0.9% [Saline Flush] 10 ml FLUSH ASDIRECTED PRN Blood Culture x2 Reflex Set [OM.PC] Stat Peripheral IV Insertion Adult [OM.PC] Stat 10/31/17 11:08 Peripheral IV Care [RC] . DIRECTED 10/31/17 11:22 CULTURE BLOOD [BC] Stat 10/31/17 11:28 CULTURE BLOOD [BC] Stat 10/31/17 11:43 Peripheral IV Care [RC] . DIRECTED Sodium Chloride 0.9% [Saline Flush] 10 ml FLUSH ASDIRECTED PRN Peripheral IV Insertion Adult [OM.PC] Stat 10/31/17 11:45 Nitroglycerin/D5W [Nitroglycerin 25 MG/D5W 250 ML] 25 mg in 250 ml IV TITRATE 10/31/17 12:00 Heparin Sodium/0.45% NaCl [Heparin 25,000 Units in 1/2 NS 500 ML] 25,000 units in 500 ml IV TITRATE - Assessment/Plan Last 24 Hours: My Active Orders 10/31/17 11:07 EKG 12 Lead [EKG Documentation Completion] [RC] STAT Sodium Chloride 0.9% [Saline Flush] 10 ml FLUSH ASDIRECTED PRN Blood Culture x2 Reflex Set [OM.PC] Stat Peripheral IV Insertion Adult [OM.PC] Stat 10/31/17 11:08 Peripheral IV Care [RC] . DIRECTED 10/31/17 11:22 CULTURE BLOOD [BC] Stat 10/31/17 11:28 CULTURE BLOOD [BC] Stat 10/31/17 11:43 Peripheral IV Care [RC] . DIRECTED Sodium Chloride 0.9% [Saline Flush] 10 ml FLUSH ASDIRECTED PRN Peripheral IV Insertion Adult [OM.PC] Stat 10/31/17 11:45 Nitroglycerin/D5W [Nitroglycerin 25 MG/D5W 250 ML] 25 mg in 250 ml IV TITRATE 10/31/17 12:00 Heparin Sodium/0.45% NaCl [Heparin 25,000 Units in 1/2 NS 500 ML] 25,000 units in 500 ml IV TITRATE
[2017-10-31] MEDS ORDERED: Sodium Chloride 0.9% 10 ML Syringe FLUSH PRN ×2 (11:07→11:43)
[2017-10-31 11:10] VITALS: BP 161/83
[2017-10-31] MEDS ORDERED: Nitroglycerin/D5W 25 MG/250 ML BOTTLE IV SCH (11:45)
[2017-10-31] MEDS ORDERED: Heparin Sodium 5,000 Units/ML Vial IVPUSH ONE (11:50)
[2017-10-31 11:55] LABS: ANION GAP 15.1; CHLORIDE,CL 113 mmol/L (101-111); SODIUM,NA 135 mmol/L (135-145)
[2017-10-31] MEDS ORDERED: Heparin Sodium/0.45% NaCl 25,000 UNITS/500 ML BAG IV SCH (12:00)
[2017-10-31] MEDS ORDERED: Furosemide 40 MG/4 ML VIAL IVPUSH ONE (12:43)
--- NOTE | 2017-11-01 19:47 | EKG ---
10/31/2017 - ROSEMARY TALAMANTES - EKG shows a heart rate of 102 beats per minute, sinus tachycardia with left ventricular hypertrophy. [facility] /[id number]
== END 2017-10-31 13:10 ==
LOC: DL.ED 11:06
DX: I21.4 Non-ST elevation (NSTEMI) myocardial infarction (principal); T80.219A Unspecified infection due to central venous catheter, initial encounter; I13.2 Hypertensive heart and chronic kidney disease with heart failure and with stage 5 chronic kidney disease, or end stage renal disease; E11.22 Type 2 diabetes mellitus with diabetic chronic kidney disease; I50.9 Heart failure, unspecified; N18.6 End stage renal disease; Z99.2 Dependence on renal dialysis; J44.9 Chronic obstructive pulmonary disease, unspecified; H54.8 Legal blindness, as defined in USA; Z91.14 Patient's other noncompliance with medication regimen; E78.00 Pure hypercholesterolemia, unspecified; Z79.4 Long term (current) use of insulin; Z79.82 Long term (current) use of aspirin; Z79.899 Other long term (current) drug therapy; Z88.5 Allergy status to narcotic agent; Z88.6 Allergy status to analgesic agent; Z88.8 Allergy status to other drugs, medicaments and biological substances
CPT/HCPCS: 36415; 71045; 80053; 80305; 81001; 83605; 83690; 83880; 84484; 85025; 85610; 85730; 87040; 93005; 96365; 96375; 96376; 99285; G0480; J1644; J1940; J3490; J7050

== ENCOUNTER 2017-11-11 02:30 | Emergency (ER) | payer MEDICAID ==
[2017-11-11 02:45] VITALS: BP 155/73
--- NOTE | 2017-11-11 02:45 | EDM.PDOC ---
ED HPI GENERAL MEDICAL PROBLEM - General Chief Complaint: Respiratory Problem Stated Complaint: AMBULANCE-RESPIRATORY ISSUES Time Seen by Provider: 11/11/17 02:41 Source of Information: Reports: Patient, EMS History Limitations: Reports: No Limitations - History of Present Illness INITIAL COMMENTS - FREE TEXT/NARRATIVE: pt c/o SOB came home from for heart problems was there for a week. tonight woke up unable to breath. has asthma. states still smokes. ER records show pt was sent to for non stemi (trop 0.59) + CHF ([id number]) - Related Data Allergies Allergy/AdvReac Type Severity Reaction Status Date / Time capsaicin Allergy UNKNOWN Verified 11/11/17 17:47 codeine Allergy Nausea and Verified 11/11/17 17:47 Vomiting ibuprofen Allergy Itching Verified 11/11/17 17:47 pregabalin Allergy CONTACT Verified 11/11/17 17:47 DERMATITIS ALLERGY Home Meds: Home Meds Carvedilol 12.5 mg PO BID 07/19/16 [History] Insulin Detemir [Levemir] 5 unit SUBCUT BEDTIME 07/19/16 [History] Mometasone/Formoterol [Dulera 100-5 MCG] 2 puff IN DAILY 07/19/16 [History] Simvastatin [Zocor] 10 mg PO BEDTIME 07/19/16 [History] Ticagrelor [Brilinta] 90 mg PO BID 07/19/16 [History] Tiotropium [Spiriva HandiHaler] 18 mcg IN DAILY 07/19/16 [History] Bumetanide [Bumex] 1 mg PO .QPM tablet 08/03/16 [Rx] Bumetanide [Bumex] 2 mg PO DAILY tablet 08/03/16 [Rx] Acetaminophen [Pain Reliever] 500 mg PO Q8H PRN 04/06/17 [History] Albuterol [Proventil Neb Soln] 0.63 mg NEB Q4HRRT 04/06/17 [History] Aspirin 325 mg PO DAILY 04/06/17 [History] Iron Polysaccharide Complex [Ferric X-150] 150 mg PO DAILY 04/06/17 [History] Ranitidine [Zantac] 150 mg PO DAILY 04/06/17 [History] Sertraline HCl 50 mg PO BEDTIME 04/06/17 [History] Past Medical History HEENT History: Reports: Glaucoma, Impaired Vision Other HEENT History: 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 Cardiovascular History: Reports: High Cholesterol, Hypertension, [place], Stents Respiratory History: Reports: Asthma, COPD, SOB Gastrointestinal History: Reports: Gastritis, GERD, Hemorrhoids Genitourinary History: Reports: Chronic Renal Insuffiency, Dialysis 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 History: Reports: 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, Other (See Below) Other 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 History: hysterectomy Musculoskeletal History: Reports: Arthritis, Back Pain, Chronic, Fibromyalgia Neurological History: Reports: Migraines Other Neuro History: hx of migraines; states she doesn't get them anymore Psychiatric History: Reports: Bipolar Endocrine/Metabolic History: Reports: Diabetes, Type II Hematologic History: Reports: None Immunologic History: Reports: None Oncologic (Cancer) History: Reports: None Dermatologic History: Reports: Cellulitis, Other (See Below) Other Dermatologic History: poor circulation in legs - Infectious Disease History Infectious Disease History: Reports: None - Past Surgical History Head Surgeries/Procedures: Reports: None HEENT Surgical History: Reports: Cataract Surgery, Eye Surgery, Laser Surgery Neurological Surgical History: Reports: None Musculoskeletal Surgical History: Reports: Other (See Below) Other Musculoskeletal Surgeries/Procedures:: Hip Fracture - History Comment History Comment: Voluntary medical noncompliance Social & Family History - Family History Family Medical History: Noncontributory HEENT: Reports: None Cardiac: Reports: None Respiratory: Reports: None GI: Reports: None OBGYN: Reports: None Musculoskeletal: Reports: Fibromyalgia Other Musculoskeletal Family History: cousin Neurological: Reports: None Psychiatric: Reports: None Oncologic: Reports: Breast Other Oncologic Family History: Aunt had breast cancer - Caffeine Use Caffeine Use: Reports: Coffee Caffeine Use Comment: 4 cups in morning and 1 in the evening - Living Situation & Occupation Living situation: Reports: Other (homeless) Occupation: Unemployed ED ROS GENERAL - Review of Systems Review Of Systems: ROS reveals no pertinent complaints other than HPI. ED EXAM, GENERAL - Physical Exam Exam: See Below Exam Limited By: No Limitations General Appearance: Alert, WD/WN, Mild Distress, Other (SOB) Ears: Hearing Grossly Normal Throat/Mouth: Normal Voice, No Airway Compromise Head: Atraumatic Neck: Non-Tender, Full Range of Motion Respiratory/Chest: No Accessory Muscle Use, Rhonchi, Wheezing. No: Decreased Breath Sounds Cardiovascular: Regular Rate, Rhythm GI/Abdominal: Soft, Non-Tender Neurological: Alert, Oriented, Normal Cognition, No Motor/Sensory Deficits Psychiatric: Flat Affect Skin Exam: Warm, Dry, Normal Color Lymphatic: No Adenopathy Course - Vital Signs Last Recorded V/S: Last Vital Signs Temp 36.6 C 11/11/17 02:36 Pulse 94 11/11/17 02:36 Resp 30 H 11/11/17 02:36 BP 155/73 H 11/11/17 02:36 Pulse Ox 98 11/11/17 02:36 - Orders/Labs/Meds Labs: Laboratory Tests 11/11/17 11/11/17 11/11/17 Range/Units 02:45 02:45 02:45 WBC 10.1 H (5.0-10.0) 10^3/uL RBC 2.54 L (4.2-5.4) 10^6/uL Hgb 7.8 L D (12.0-16.0) g/dL Hct 25.1 L (37.0-47.0) % MCV 98.8 D (80-100) fL MCH 30.7 (27.0-34.0) pg MCHC 31.1 L (33.0-35.0) g/dL Plt Count 360 D (150-450) 10^3/uL Neut % (Auto) 77.7 H (42.2-75.2) % Lymph % (Auto) 12.9 L (20.5-50.1) % [place] % (Auto) 6.9 (2-8) % Eos % (Auto) 1.7 (1.0-3.0) % Baso % (Auto) 0.8 (0.0-1.0) % Sodium 131 L (135-145) mmol/L Potassium 4.6 (3.6-5.0) mmol/L Chloride 92 L D (101-111) mmol/L Carbon Dioxide 25.0 D (21.0-31.0) mmol/L Anion Gap 18.6 BUN 50 H D (7-18) mg/dL Creatinine 4.0 H D (0.6-1.3) mg/dL Est Cr Clr Drug Dosing 12.37 mL/min Estimated GFR (MDRD) 11 BUN/Creatinine Ratio 12.50 Glucose 137 H (74-105) mg/dL Lactic Acid 0.8 (0.5-2.2) mmol/L Calcium 6.8 L (8.4-10.2) mg/dl Total Bilirubin 0.4 (0.2-1.0) mg/dL AST 24 (10-42) IU/L ALT 10 (10-60) IU/L Alkaline Phosphatase 70 (42-121) IU/L Troponin I 0.08 H* (0.00-0.02) ng/ml B-Natriuretic Peptide > 5000 H (0-100) pg/ml Total Protein 6.2 L (6.7-8.2) g/dl Albumin 2.2 L (3.2-5.5) g/dl Globulin 4.0 Albumin/Globulin Ratio 0.55 Meds: Medications Discontinued Medications Generic Name Dose Route Start Last Admin Trade Name Cathy PRN Reason Stop Dose Admin Furosemide 40 mg 11/11/17 04:33 11/11/17 05:09 Lasix IVPUSH 11/11/17 04:34 Not Given NOW ONE Lorazepam 1 mg 11/11/17 02:49 11/11/17 02:58 Ativan IVPUSH 11/11/17 02:50 1 mg ONETIME ONE Administration - Re-Assessments/Exams Free Text/Narrative Re-Assessment/Exam: 11/11/17 05:09 re-exam; s/p ativan pt now ambulated to bathroom without assist, no further c/o SOB. results discussed with pt who states she gets dialysis @ [facility] on Mon and the clinic van picks her up at her house. presently pt wants a cup of coffee. Departure - Departure Time of Disposition: 07:20 Disposition: Home, Self-Care 01 Condition: Fair Clinical Impression: End stage renal disease on dialysis, Tobacco abuse COPD (chronic obstructive pulmonary disease) Qualifiers: COPD type: unspecified COPD Qualified Code(s): J44.9 - Chronic obstructive pulmonary disease, unspecified Congestive heart failure Qualifiers: Heart failure type: unspecified Heart failure chronicity: chronic Qualified Code(s): I50.9 - Heart failure, unspecified - Discharge Information Instructions: Steps to Quit Smoking Forms: ED Department Discharge Additional Instructions: 1) rest 2) don't smoke too much 3) make sure you get to dialysis today
[2017-11-11] MEDS ORDERED: LORazepam 2 MG/ML Syringe IVPUSH ONE (02:49)
[2017-11-11 03:22] LABS: ANION GAP 18.6; CHLORIDE,CL 92 mmol/L (101-111); SODIUM,NA 131 mmol/L (135-145)
[2017-11-11] MEDS ORDERED: Furosemide 40 MG/4 ML VIAL IVPUSH ONE (04:33)
== END 2017-11-11 07:20 | disposition home or self-care (01) ==
LOC: DL.ED 02:30
DX: I13.2 Hypertensive heart and chronic kidney disease with heart failure and with stage 5 chronic kidney disease, or end stage renal disease (principal); E11.22 Type 2 diabetes mellitus with diabetic chronic kidney disease; I50.9 Heart failure, unspecified; N18.6 End stage renal disease; I25.2 Old myocardial infarction; F17.290 Nicotine dependence, other tobacco product, uncomplicated; J44.9 Chronic obstructive pulmonary disease, unspecified; E78.00 Pure hypercholesterolemia, unspecified; Z88.5 Allergy status to narcotic agent; Z88.6 Allergy status to analgesic agent; Z79.899 Other long term (current) drug therapy; Z79.4 Long term (current) use of insulin; Z79.82 Long term (current) use of aspirin; Z99.2 Dependence on renal dialysis
CPT/HCPCS: 36415; 71045; 80053; 83605; 83880; 84484; 85025; 93005; 96374; 96375; 99284; J2060

== ENCOUNTER 2017-11-11 17:36 | Emergency (ER) | payer MEDICAID ==
[2017-11-11 17:52] VITALS: BP 145/78
[2017-11-11] MEDS ORDERED: Sodium Chloride 0.9% 10 ML Syringe FLUSH PRN (18:23)
--- NOTE | 2017-11-11 18:24 | EDM.PDOC ---
Scribed by Tiera Clifton 11/11/17 [id number] for Sagrario Bertrand NP <Sagrario Bertrand - Last Filed: 11/11/17 18:54> ED HPI GENERAL MEDICAL PROBLEM - General Chief Complaint: Respiratory Problem Stated Complaint: BY AMBULANCE Time Seen by Provider: 11/11/17 17:55 Source of Information: Reports: Patient, EMS, EMS Notes Reviewed, RN, RN Notes Reviewed History Limitations: Reports: No Limitations - History of Present Illness INITIAL COMMENTS - FREE TEXT/NARRATIVE: Patient presents to ER with complaint of chest pain."My heart hurts and I can't breathe". Patient states she did go to dialysis today in [place]. Patient states pain goes into her jaw. She was seen in the ER approximately 12 hours ago. She has chills and diarrhea. No fever. Onset: Today Duration: Constant Location: Reports: Chest Quality: Reports: Ache Severity: Moderate Improves with: Reports: None Worsens with: Reports: None Associated Symptoms: Reports: No Other Symptoms Chest Pain Score (Numeric/FACES): 8 - Related Data Allergies Allergy/AdvReac Type Severity Reaction Status Date / Time capsaicin Allergy UNKNOWN Verified 11/11/17 17:47 codeine Allergy Nausea and Verified 11/11/17 17:47 Vomiting ibuprofen Allergy Itching Verified 11/11/17 17:47 pregabalin Allergy CONTACT Verified 11/11/17 17:47 DERMATITIS ALLERGY Home Meds: Home Meds Carvedilol 12.5 mg PO BID 07/19/16 [History] Insulin Detemir [Levemir] 5 unit SUBCUT BEDTIME 07/19/16 [History] Mometasone/Formoterol [Dulera 100-5 MCG] 2 puff IN DAILY 07/19/16 [History] Simvastatin [Zocor] 10 mg PO BEDTIME 07/19/16 [History] Ticagrelor [Brilinta] 90 mg PO BID 07/19/16 [History] Tiotropium [Spiriva HandiHaler] 18 mcg IN DAILY 07/19/16 [History] Bumetanide [Bumex] 1 mg PO .QPM tablet 08/03/16 [Rx] Bumetanide [Bumex] 2 mg PO DAILY tablet 08/03/16 [Rx] Acetaminophen [Pain Reliever] 500 mg PO Q8H PRN 04/06/17 [History] Albuterol [Proventil Neb Soln] 0.63 mg NEB Q4HRRT 04/06/17 [History] Aspirin 325 mg PO DAILY 04/06/17 [History] Iron Polysaccharide Complex [Ferric X-150] 150 mg PO DAILY 04/06/17 [History] Ranitidine [Zantac] 150 mg PO DAILY 04/06/17 [History] Sertraline HCl 50 mg PO BEDTIME 04/06/17 [History] Past Medical History HEENT History: Reports: Glaucoma, Impaired Vision Other HEENT History: 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 Cardiovascular History: Reports: High Cholesterol, Hypertension, [place], Stents Respiratory History: Reports: Asthma, COPD, SOB Gastrointestinal History: Reports: Gastritis, GERD, Hemorrhoids Genitourinary History: Reports: Chronic Renal Insuffiency, Dialysis 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: Reports: 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, Other (See Below) Other 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: hysterectomy Musculoskeletal History: Reports: Arthritis, Back Pain, Chronic, Fibromyalgia Neurological History: Reports: Migraines Other Neuro History: hx of migraines; states she doesn't get them anymore Psychiatric History: Reports: Bipolar Endocrine/Metabolic History: Reports: Diabetes, Type II Hematologic History: Reports: None Immunologic History: Reports: None Oncologic (Cancer) History: Reports: None Dermatologic History: Reports: Cellulitis, Other (See Below) Other Dermatologic History: poor circulation in legs - Infectious Disease History Infectious Disease History: Reports: None - Past Surgical History Head Surgeries/Procedures: Reports: None HEENT Surgical History: Reports: Cataract Surgery, Eye Surgery, Laser Surgery Neurological Surgical History: Reports: None Musculoskeletal Surgical History: Reports: Other (See Below) Other Musculoskeletal Surgeries/Procedures:: Hip Fracture - History Comment History Comment: Voluntary medical noncompliance Social & Family History - Family History Family Medical History: Noncontributory HEENT: Reports: None Cardiac: Reports: None Respiratory: Reports: None GI: Reports: None OBGYN: Reports: None Musculoskeletal: Reports: Fibromyalgia Other Musculoskeletal Family History: cousin Neurological: Reports: None Psychiatric: Reports: None Oncologic: Reports: Breast Other Oncologic Family History: Aunt had breast cancer - Caffeine Use Caffeine Use: Reports: Coffee Caffeine Use Comment: 4 cups in morning and 1 in the evening - Living Situation & Occupation Living situation: Reports: Other (homeless) Occupation: Unemployed ED ROS GENERAL - Review of Systems Review Of Systems: ROS reveals no pertinent complaints other than HPI. ED EXAM, GENERAL - Physical Exam Exam: See Below Exam Limited By: No Limitations General Appearance: Other (respiratory distress) Eye Exam: Left Eye: Other (cataract) Ears: Normal External Exam, Normal Canal, Hearing Grossly Normal, Normal TMs Nose: Normal Inspection, Normal Mucosa, No Blood Throat/Mouth: Normal Inspection, Normal Lips, Normal Teeth, Normal Gums, Normal Oropharynx, Normal Voice, No Airway Compromise Head: Atraumatic, Normocephalic Neck: Normal Inspection, Supple, Non-Tender, Full Range of Motion Respiratory/Chest: Crackles (bilateral), Rhonchi (bilateral) Cardiovascular: Other (irregular) GI/Abdominal: Other (decreased bowel sounds) (Female) Exam: Deferred Rectal (Female) Exam: Deferred Back Exam: Normal Inspection Extremities: Other (weak) Neurological: Other (lethargic) Psychiatric: Anxious Skin Exam: Warm Lymphatic: No Adenopathy EKG INTERPRETATION EKG Date: 11/11/17 Time: 18:06 Rhythm: Other (sinus tachycardia) Rate (Beats/Min): 119 Comparison: Change From Previous EKG EKG Interpretation Comments: EKG shows sinus tachycardia, ventricular premature complexes and LVH with IVCD and secondary repolarization abnormality. Course - Vital Signs Last Recorded V/S: Last Vital Signs Temp 37.0 C 11/11/17 17:48 Pulse 120 H 11/11/17 17:48 Resp 18 11/11/17 17:48 BP 145/78 H 11/11/17 17:48 Pulse Ox 94 L 11/11/17 17:48 - Orders/Labs/Meds Orders: Active Orders 24 hr Category Date Time Status EKG Documentation Completion [RC] STAT Care 11/11/17 18:23 Active Peripheral IV Care [RC] . DIRECTED Care 11/11/17 18:23 Active RT Aerosol Therapy [RC] ASDIRECTED Care 11/11/17 23:00 Active Sodium Chloride 0.9% [Saline Flush] Med 11/11/17 18:23 Active 10 ml FLUSH ASDIRECTED PRN Peripheral IV Insertion Adult [OM.PC] Stat Oth 11/11/17 18:23 Ordered Medication Orders Sodium Chloride (Saline Flush) 10 ml FLUSH ASDIRECTED PRN PRN Reason: Keep Vein Open Labs: Laboratory Tests 11/11/17 11/11/17 11/11/17 Range/Units 17:51 17:51 17:51 WBC 9.1 (5.0-10.0) 10^3/uL RBC 2.63 L (4.2-5.4) 10^6/uL Hgb 8.1 L (12.0-16.0) g/dL Hct 26.0 L (37.0-47.0) % MCV 98.9 (80-100) fL MCH 30.8 (27.0-34.0) pg MCHC 31.2 L (33.0-35.0) g/dL Plt Count 395 (150-450) 10^3/uL Neut % (Auto) 82.0 H (42.2-75.2) % Lymph % (Auto) 10.9 L (20.5-50.1) % [place] % (Auto) 5.6 (2-8) % Eos % (Auto) 0.7 L (1.0-3.0) % Baso % (Auto) 0.8 (0.0-1.0) % PT 10.1 (9.0-12.0) SEC INR 1.0 (0.9-1.2) Sodium 135 (135-145) mmol/L Potassium 4.2 (3.6-5.0) mmol/L Chloride 95 L (101-111) mmol/L Carbon Dioxide 29.0 (21.0-31.0) mmol/L Anion Gap 15.2 BUN 19 H D (7-18) mg/dL Creatinine 2.3 H D (0.6-1.3) mg/dL Est Cr Clr Drug Dosing 21.52 mL/min Estimated GFR (MDRD) 22 BUN/Creatinine Ratio 8.26 Glucose 153 H (74-105) mg/dL Calcium 7.7 L (8.4-10.2) mg/dl Total Bilirubin 0.5 (0.2-1.0) mg/dL AST 26 (10-42) IU/L ALT 11 (10-60) IU/L Alkaline Phosphatase 74 (42-121) IU/L Creatine Kinase (26-174) IU/L Creatine Kinase Index (0-2.4) % CK-MB (CK-2) (0.4-4.7) ng/mL Troponin I 0.09 H* (0.00-0.02) ng/ml B-Natriuretic Peptide > 5000 H (0-100) pg/ml Total Protein 6.7 (6.7-8.2) g/dl Albumin 2.4 L (3.2-5.5) g/dl Globulin 4.3 Albumin/Globulin Ratio 0.56 11/11/17 11/11/17 Range/Units 17:51 22:20 WBC (5.0-10.0) 10^3/uL RBC (4.2-5.4) 10^6/uL Hgb (12.0-16.0) g/dL Hct (37.0-47.0) % MCV (80-100) fL MCH (27.0-34.0) pg MCHC (33.0-35.0) g/dL Plt Count (150-450) 10^3/uL Neut % (Auto) (42.2-75.2) % Lymph % (Auto) (20.5-50.1) % [place] % (Auto) (2-8) % Eos % (Auto) (1.0-3.0) % Baso % (Auto) (0.0-1.0) % PT (9.0-12.0) SEC INR (0.9-1.2) Sodium (135-145) mmol/L Potassium (3.6-5.0) mmol/L Chloride (101-111) mmol/L Carbon Dioxide (21.0-31.0) mmol/L Anion Gap BUN (7-18) mg/dL Creatinine (0.6-1.3) mg/dL Est Cr Clr Drug Dosing mL/min Estimated GFR (MDRD) BUN/Creatinine Ratio Glucose (74-105) mg/dL Calcium (8.4-10.2) mg/dl Total Bilirubin (0.2-1.0) mg/dL AST (10-42) IU/L ALT (10-60) IU/L Alkaline Phosphatase (42-121) IU/L Creatine Kinase 96 (26-174) IU/L Creatine Kinase Index 7.9 H (0-2.4) % CK-MB (CK-2) 7.60 H (0.4-4.7) ng/mL Troponin I 0.35 H* (0.00-0.02) ng/ml B-Natriuretic Peptide (0-100) pg/ml Total Protein (6.7-8.2) g/dl Albumin (3.2-5.5) g/dl Globulin Albumin/Globulin Ratio Meds: Medications Generic Name Dose Route Start Last Admin Trade Name Freq PRN Reason Stop Dose Admin Sodium Chloride 10 ml 11/11/17 18:23 Saline Flush FLUSH ASDIRECTED PRN Keep Vein Open Discontinued Medications Generic Name Dose Route Start Last Admin Trade Name Freq PRN Reason Stop Dose Admin Albuterol/Ipratropium 3 ml 11/11/17 23:00 11/11/17 23:06 Duoneb 3.0-0.5 Mg/3 Ml NEB 11/11/17 23:01 3 ml ONETIME ONE Administration Aspirin 324 mg 11/11/17 23:38 Aspirin PO 11/11/17 23:39 ONETIME ONE Lorazepam 1 mg 11/11/17 23:00 11/11/17 23:06 Ativan PO 11/11/17 23:01 1 mg ONETIME ONE Administration - Radiology Interpretation Free Text/Narrative:: Chest xray: IMPRESSION: Stable mild vascular congestion Thank you for allowing us to participate in the care of your patient. Dictated and Authenticated by: Dre Champion MD 11/11/2017 6:45 PM Central Time ([place] & [place]) See rad report Departure - Departure Disposition: DC/Tfer to [facility] 02 Clinical Impression: Non-ST elevated myocardial infarction (non-STEMI) - Discharge Information Forms: Interfacility Transfer EMTALA - My Orders Last 24 Hours: My Active Orders 11/11/17 23:00 RT Aerosol Therapy [RC] ASDIRECTED - Assessment/Plan Last 24 Hours: My Active Orders 11/11/17 23:00 RT Aerosol Therapy [RC] ASDIRECTED <Pasha Harmon - Last Filed: 11/11/17 23:46> Course - Re-Assessments/Exams Free Text/Narrative Re-Assessment/Exam: 11/11/17 23:[address] Delaney @ who kindly accepted pt. Departure - Departure Time of Disposition: 23:41 Condition: Fair I have read and agree with the documentation that has been completed regarding this visit. By signing this record, I attest that the documentation was completed in my physical presence and is an accurate record of the encounter.
[2017-11-11 18:41] LABS: ANION GAP 15.2; CHLORIDE,CL 95 mmol/L (101-111); SODIUM,NA 135 mmol/L (135-145)
[2017-11-11] MEDS ORDERED: Albuterol/Ipratropium 3.0-0.5 MG/3 ML Neb Soln NEB ONE (23:00)
[2017-11-11] MEDS ORDERED: LORazepam 1 MG Tab PO ONE (23:00)
[2017-11-11] MEDS ORDERED: Aspirin 81 MG Tab.Chew PO ONE (23:38)
== END 2017-11-12 00:48 ==
LOC: DL.ED 17:36
DX: I21.4 Non-ST elevation (NSTEMI) myocardial infarction (principal); I10 Essential (primary) hypertension; E11.9 Type 2 diabetes mellitus without complications; Z88.8 Allergy status to other drugs, medicaments and biological substances; Z88.5 Allergy status to narcotic agent; Z79.899 Other long term (current) drug therapy
CPT/HCPCS: 36415; 71045; 80053; 82550; 82553; 83880; 84484; 85025; 85610; 93005; 99285; A9270; J7050; J7620-GY